=== PATIENT | female | born 1955 | race Caucasian/White ===

== ENCOUNTER → 2017-09-14 09:20 | Outpatient (CLI) | payer OTHER, SELFPAY ==
--- NOTE | 2017-09-14 | DI.MG.S_ITS ---
BILATERAL DIGITAL SCREENING MAMMOGRAM 3D/2D WITH CAD: 09/14/2017 CLINICAL: Routine screening. Family history of breast cancer. Comparison is made to exams dated: 09/11/2016 mammogram, 08/30/2015 mammogram, and 08/26/2014 mammogram - [facility]. The tissue of both breasts is heterogeneously dense. This may lower the sensitivity of mammography. Current study was also evaluated with a Computer Aided Detection (CAD) system. No significant masses, calcifications, or other findings are seen in either breast. There has been no significant interval change. IMPRESSION: NEGATIVE There is no mammographic evidence of malignancy. A 1 year screening mammogram is recommended. This exam was interpreted at Station ID: [id number]. NOTE: For mammograms, a report in lay terms will be sent to the patient. Approximately 15% of breast malignancies will not be visualized mammographically. In the management of a palpable breast mass, a negative mammogram must not discourage biopsy of a clinically suspicious lesion. Electronically Signed By: Kirit rowley/blu:09/14/2017 16:00:27 letter sent: Normal Exam ACR BI-RADS Category 1: Negative [id number]
== END ==
PROVIDERS: Family Provider Family Medicine; PCP Family Medicine; Visit Provider Family Medicine
DX: Z12.31 Encounter for screening mammogram for malignant neoplasm of breast (principal); Z80.3 Family history of malignant neoplasm of breast
CPT/HCPCS: 77063; 77067

== ENCOUNTER → 2017-11-29 11:39 | Outpatient (CLI) | payer OTHER, SELFPAY ==
[2017-11-29 12:15] LABS: Appearance Urine UA SL CLOUDY; Bilirubin Urine UA NEGATIVE (NEGATIVE); Color Urine UA YELLOW; Glucose Urine UA NEGATIVE (Normal); Ketones Urine UA TRACE (NEGATIVE); Leukocyte Esterase Urine UA 2+ (NEGATIVE); Nitrite Urine UA Negative (Negative); Occult Blood Urine UA 1+ (Negative); Protein Urine UA TRACE (Negative); Urobilinogen Urine UA 0.2 E.U./dL (0.2); pH Urine UA 5.5 (4.5-8.0)
[2017-11-29 12:23] LABS: Bacteria Urine Occasional (0-1); RBC Urine 0-1/HPF (0-5/HPF); Squamous Epithelial Cell Urine 0-1 /HPF; WBC Urine >100/HPF (0-5/HPF)
[2017-11-29 12:24] LABS: Culture Indicated Urine Specimen Cultured
== END ==
PROVIDERS: Family Provider Family Medicine; PCP Family Medicine; Visit Provider Family Medicine
DX: R30.0 Dysuria (principal)
CPT/HCPCS: 81003; 81015; 87086

== ENCOUNTER 2018-02-01 23:24 | Emergency (ER) | payer OTHER, SELFPAY ==
[2018-02-01 23:27] VITALS: BP 160/82; PULSE 77; RESP 18; TEMP 36.6; O2SAT 99; BMI 24.0
--- NOTE | 2018-02-01 23:59 | ED.WOUNDLAC ---
HPI - Wound/Laceration General Chief Complaint: Wound/Laceration Stated Complaint: fall at home, hit foreheadhead, cuts Time Seen by Provider: 02/01/18 23:55 Source: patient Mode of arrival: ambulatory Limitations: no limitations History of Present Illness HPI narrative: Patient is a 62-year-old female who presents after a ground level fall and head injury. She says she tripped trying to avoid TV on the floor. She is currently painting so things are issue. She landed on her forehead she heard a pop did not lose consciousness is not nauseated or vomiting. She has minimal bilateral neck pain though she is able to move her neck fully. She denies any alcohol use. She has no numbness tingling or weakness in her upper extremities. This is not the worse headache her life she has had a migraine in the past which she says was the worst headache. He is not on any anti-platelet or anticoagulation medication. Related Data Home Medications Medication Instructions Recorded Confirmed melatonin 5 mg PO QDAY #0 11/06/16 01/07/18 [tumeric] #0 12/13/16 01/07/18 Previous Rx's Medication Instructions Recorded hyoscyamine sulfate [Levsin/SL] 0.125 mg SUBLINGUAL Q6HP PRN #14 04/25/17 tab estradiol [Estrace] 0 VAGINAL SEE INSTRUCTIONS #1 tube 07/17/17 paroxetine HCl [Paxil] 20 mg PO QDAY #90 tab 07/17/17 polyethylene glycol 3350 [Miralax] 17 gm PO QDAY #30 dose 07/17/17 atomoxetine 18 mg capsule 18 mg PO Q DAY #30 cap 01/07/18 Allergies Allergy/AdvReac Type Severity Reaction Status Date / Time codeine [CODEINE] AdvReac Intermediate NAUSEA Verified 02/01/18 23:30 Review of Systems Review of Systems All systems reviewed & are unremarkable except as noted in HPI and below Constitutional Denies chills, Denies fever(s), Reports headache(s), Denies lethargy and Denies weakness Eyes Denies change in vision, Denies eye discharge, Denies irritation and Denies loss of vision ENT Ears, Nose, Mouth, and Throat: Denies change in voice, Denies vertigo, Denies dizziness, Reports headache(s), Reports neck pain and Denies sore throat Cardiovascular Denies chest pain, Denies irregular heart rhythm, Denies lightheadedness, Denies palpitations and Denies orthopnea Musculoskeletal Reports system reviewed and no additional complaints, except as docu, Denies abnormal gait and Reports neck pain Integumentary/Breasts Reports as per HPI Neurologic Reports as per HPI, Denies abnormal speech, Denies abnormal gait, Denies vertigo, Denies dizziness, Reports headache(s), Denies loss of vision and Denies weakness Endocrine Denies palpitations Hematologic/Lymphatic Denies easy bleeding and Denies easy bruising PFSH Social History marital status: Smoking Status: Never smoker alcohol intake: current (2-3 A WEEK ) substance use type: does not use Exam Initial Vital Signs Initial Vital Signs: Vital Signs Temperature 97.8 F 02/01/18 23:27 Pulse Rate 77 02/01/18 23:27 Respiratory Rate 18 02/01/18 23:27 Blood Pressure 160/82 H 02/01/18 23:27 Pulse Oximetry 99 02/01/18 23:27 GENERAL: Well-appearing, well-nourished and in no acute distress. HEENT: Superficial laceration noted on forehead minimal swelling no crepitations no depressions in skull. NECK: No midline vertebral tenderness no immediate paravertebral tenderness lateral bilateral muscle like tenderness. She is able flex extend rotate fully without difficulty. CARDIOVASCULAR: Regular rate and rhythm without murmurs, rubs or gallops. RESPIRATORY: Breath sounds equal bilaterally, no wheezes rales or rhonchi. EXTREMITIES: Normal range of motion, no clubbing or edema. Neurovascularly intact NEUROLOGICAL: Alert and oriented x4.Normal gait and speech. Cranial nerves II through XII grossly intact. 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 She has no neurologic deficits or persistent vomiting. Cervical spine is Nontender with good range of motion of her neck. Recommended if there is worsening pain or weakness to return to the ED I discussed all findings with the patient and , Education has been performed regarding treatment plan, diagnosis, warning signs and symptoms and all concerns have been addressed. Verbally agree with and understood all of the above. Discharge Plan Departure Patient Disposition: Home Clinical Impression: Closed head injury, Acute cervical myofascial strain Discharge Date/Time: 02/02/18 00:24 Interventions: ED Discharge Assessment Last Done: 02/02/18 00:24 Instructions: DI for Whiplash, Closed Head Injury Activity Restrictions/Additional Instructions: *You have been diagnosed with closed head injury and cervical strain *What to do: At this time no indication for CT. Expect to be sore tomorrow. Continue icing 20 min at a time *Continue to take medications as directed Tylenol 975-1000 mg every 6 hr if needed pain *Follow up with your primary care provider in 2-3 days *Return to ER if you should have weakness, numbness, tingling, persistent vomiting, worsening headache or any new, worsening or concerning symptoms Prescriptions: No Action melatonin 5 MG tablet 5 mg PO QDAY Qty: 0 RF: 0 [tumeric] Qty: 0 RF: 0 hyoscyamine sulfate [Levsin/SL] 0.125 MG tablet, sublingual 0.125 mg Sublingual Q6HP PRNQty: 14 RF: 0 paroxetine HCl [Paxil] 20 MG tablet 20 mg PO QDAY Qty: 90 RF: 3 polyethylene glycol 3350 [Miralax] 119 GM powder 17 gm PO QDAY Qty: 30 RF: 2 estradiol [Estrace] 0.01 % cream Vaginal SEE INSTRUCTIONS Qty: 1 RF: 11 atomoxetine 18 mg capsule 18 mg PO Q DAY Qty: 30 RF: 0 Referrals: Camacho Richey MD [Primary Care Provider] -
[2018-02-02 00:24] VITALS: BP 158/82; PULSE 71; RESP 18; O2SAT 99
== END 2018-02-02 00:24 | disposition home or self-care (01) ==
PROVIDERS: Emergency Provider Emergency Medicine; Family Provider Family Medicine; PCP Family Medicine
DX: S09.90XA Unspecified injury of head, initial encounter (principal); S16.1XXA Strain of muscle, fascia and tendon at neck level, initial encounter; W18.30XA Fall on same level, unspecified, initial encounter
CPT/HCPCS: 99282; 99283

== ENCOUNTER 2018-08-03 21:53 | Emergency (ER) | payer OTHER, SELFPAY ==
[2018-08-03 21:55] VITALS: BP 130/69; PULSE 103; RESP 16; TEMP 36.3; O2SAT 98; BMI 24.0
--- NOTE | 2018-08-03 22:00 | DI.RAD.S_ITS ---
PROCEDURE: XR SHOULDER LT MIN 2V INDICATIONS: injured playing tug with dog TECHNIQUE: 3 views of the shoulder were acquired. COMPARISON: [facility], , CHEST 2 VIEW, 11/08/2015, 11:27. FINDINGS: Bones: There is a mildly displaced fracture seen involving the greater tubercle of the left humeral head. No additional fractures are detected. No dislocations are seen. The visualized ribs are unremarkable. No suspicious lytic or blastic lesions are seen. There is partial visualization of lumbar fixation hardware. Soft tissues: No suspicious soft tissue calcifications. The visualized lung demonstrates an unremarkable appearance. IMPRESSION: Mildly displaced fracture of the greater tubercle of the left humeral head. Note: No significant discrepancy from the preliminary report. Dictated by: Jhonathan Taylor M.D. on 08/04/2018 at 7:24 Approved by: Jhonathan Taylor M.D. on 08/04/2018 at 7:26
--- NOTE | 2018-08-04 00:09 | ED_ITS ---
HPI - Extremity Injury (Upper) General Chief Complaint: Extremity Injury, Upper Stated Complaint: left arm injury Time Seen by Provider: 08/04/18 00:00 Source: patient Mode of arrival: ambulatory Limitations: no limitations History of Present Illness HPI narrative: Patient is a 62-year-old female here for evaluation of a left shoulder injury. Patient states she was on the ground playing tackle were with her dog when her dog suddenly jerked her arm out to the side. She had sudden pain in her upper arm and has had some difficulty moving it since then. No prior injuries. Has not tried anything for the symptoms prior to arrival. No other injuries reported from the event Related Data Home Medications Medication Instructions Recorded Confirmed melatonin 5 mg PO QDAY #0 11/06/16 02/07/18 [tumeric] #0 12/13/16 02/07/18 Previous Rx's Medication Instructions Recorded hyoscyamine sulfate [Levsin/SL] 0.125 mg SUBLINGUAL Q6HP PRN #14 04/25/17 tab polyethylene glycol 3350 [Miralax] 17 gm PO QDAY #30 dose 07/17/17 cyclobenzaprine 10 mg tablet 10 mg PO TID PRN #20 tab 02/07/18 estradiol [Estrace] 0 VAGINAL SEE INSTRUCTIONS #1 tube 02/20/18 paroxetine 20 mg tablet 20 mg PO QDAY #90 tab 04/10/18 atomoxetine 18 mg capsule 18 mg PO Q DAY #30 cap 05/24/18 Allergies Allergy/AdvReac Type Severity Reaction Status Date / Time codeine [CODEINE] AdvReac Intermediate NAUSEA Verified 02/07/18 09:15 Review of Systems Constitutional Denies fever(s) ENT Ears, Nose, Mouth, and Throat: Denies neck pain Cardiovascular Denies chest pain and Denies dyspnea Respiratory Denies dyspnea Gastrointestinal Gastrointestinal: Denies abdominal pain Musculoskeletal Denies myalgias, Reports arthralgias (Left shoulder), Reports limited range of motion (Left shoulder), Denies neck pain and Denies numbness Integumentary/Breasts Denies rash Neurologic Denies numbness Hematologic/Lymphatic Denies easy bleeding and Denies easy bruising [facility] Medical History ADHD (Chronic ~2006) Ankle pain (Chronic) Back pain (Chronic) Cardiac arrhythmia (Chronic) GERD (gastroesophageal reflux disease) (Chronic ~2007) Scoliosis (Chronic ~1965) Seasonal allergies (Chronic ~2012) Shoulder pain (Chronic ~2013) Skin cancer, basal cell (Chronic ~2013) Vision disorder (Chronic) Chicken pox (Resolved ~1960) Mumps (Resolved) Recurrent sinusitis (Resolved ~2012) Social History marital status: Smoking Status: Never smoker alcohol intake: current substance use type: does not use Exam Initial Vital Signs Initial Vital Signs: Vital Signs Temperature 97.3 F L 08/03/18 21:55 Pulse Rate 103 H 08/03/18 21:55 Respiratory Rate 16 08/03/18 21:55 Blood Pressure 130/69 08/03/18 21:55 Pulse Oximetry 98 08/03/18 21:55 Const General: cooperative, comfortable, well developed, well groomed and No acute distress Orientation: alert, awake and oriented x3 HENMT Head: normal to inspection and normocephalic Resp Effort & Inspection: normal respiratory effort Cardio Rate: tachycardic Pulses: radial pulses present on the left Skin Lesions: no lesions Rashes: no rashes Neuro General: alert, awake and oriented x3 Cognition: normal cognition Sensory Exam: no sensory deficits noted Extrem Other: Left shoulder: Patient with tenderness to palpation on the lateral aspect of the upper shoulder. No clavicle tenderness. No AC joint tenderness. No scapular tenderness. No elbow or wrist tenderness. Psych Appearance: grossly normal and well kempt Procedures Orthopedic Splinting/Casting Injury #1: Side: left Upper Extremity Injury Location: shoulder Upper Extremity Immobilizer: sling/shoulder immobilizer Post splinting neuro exam: intact and no change Post splinting vascular exam: no change Placed by: Nursing Course Orders Ordered: ED Orders 08/03/18 22:00 XR shoulder LT min 2V Stat Discontinued Medications Hydrocodone Bitart/Acetaminophen (Vicodin Prepack) 1 bottle MISC SEEINSTR ONE Stop: 08/04/18 00:16 Last Admin: 08/04/18 00:35 Dose: 1 bottle Vital Signs - 8 hr 08/03/18 21:55 08/04/18 00:38 Temperature 97.3 F L 98.6 F Pulse Rate 103 H 78 Respiratory Rate 16 18 Blood Pressure 130/69 141/81 H Pulse Oximetry 98 99 MDM - Extremity Injury (Upper) Imaging Data Shoulder x-ray: Attestation: I personally reviewed and interpreted this imaging study as follows: My impression: Does appear to be a cortical irregularity of the greater tubercle of the left humerus. MDM Narrative Medical decision making narrative: Patient is neurovascularly intact. My read the x-ray shows what appears to be a cortical irregularity of the greater tubercle. This does correspond to where she is tender. It is nondisplaced. She was placed in a sling and given pain medications. She was instructed to contact her primary care doctor for follow-up. She was also given follow-up with the orthopedic group [facility]. Patient expressed understanding and agreement with plan. Discharge Plan Departure Patient Disposition: Home Clinical Impression: Fracture of proximal end of humerus Qualifiers: Encounter type: initial encounter Fracture type: closed Fracture morphology: unspecified fracture morphology Laterality: left Qualified Code(s): S42.202A - Unspecified fracture of upper end of left humerus, initial encounter for closed fracture Discharge Date/Time: 08/04/18 00:41 Interventions: ED Discharge Assessment Last Done: 08/04/18 00:38 Instructions: How to Use a Sling, DI for Shoulder Fracture Activity Restrictions/Additional Instructions: On Sunday contact Dr. Richey office for follow-up. You can also contact the [facility] group at [phone]. Use the sling for your comfort. Return to the emergency department for any new or worsening symptoms Prescriptions: No Action melatonin 5 MG tablet 5 mg PO QDAY Qty: 0 RF: 0 [tumeric] Qty: 0 RF: 0 hyoscyamine sulfate [Levsin/SL] 0.125 MG tablet, sublingual 0.125 mg Sublingual Q6HP PRNQty: 14 RF: 0 polyethylene glycol 3350 [Miralax] 119 GM powder 17 gm PO QDAY Qty: 30 RF: 2 estradiol [Estrace] 0.01 % (0.1 mg/gram) cream Vaginal SEE INSTRUCTIONS Qty: 1 RF: 11 paroxetine HCl [Paxil] 20 mg tablet 20 mg PO QDAY Qty: 90 RF: 3 atomoxetine 18 mg capsule 18 mg PO Q DAY Qty: 30 RF: 0 cyclobenzaprine 10 mg tablet 10 mg PO TID PRN (Reason: muscle spasm) Qty: 20 RF: 0 Referrals: Camacho Richey MD [Primary Care Provider] -
[2018-08-04] MEDS: HYDROCODONE/ACET 5/325 PREPACK 1 BOTTLE MISC (00:35)
[2018-08-04 00:38] VITALS: BP 141/81; PULSE 78; RESP 18; TEMP 37; O2SAT 99
== END 2018-08-04 00:41 | disposition home or self-care (01) ==
PROVIDERS: Emergency Provider Emergency Medicine; PCP Family Medicine
DX: S42.202A Unspecified fracture of upper end of left humerus, initial encounter for closed fracture (principal)
CPT/HCPCS: 73030; 99282; 99283

== ENCOUNTER → 2018-08-07 10:36 | Outpatient (CLI) | payer OTHER, SELFPAY ==
[2018-08-07 17:33] LABS: Vitamin D 25 Hydroxy (D3) 29.1 ng/mL (30.0-100.0)
== END ==
PROVIDERS: Family Provider Family Medicine; PCP Family Medicine; Visit Provider Physician Assistant
DX: S42.255A Nondisplaced fracture of greater tuberosity of left humerus, initial encounter for closed fracture (principal)
CPT/HCPCS: 36415; 82306

== ENCOUNTER 2018-10-15 11:15 | Outpatient (RCR) | payer OTHER, SELFPAY ==
--- NOTE | 2018-08-09 16:45 | PT.OIE ---
Current Diagnoses Nondisplaced fracture of greater tuberosity of left humerus, initial encounter for closed fracture (08/09/18) Past Medical History (Last Reviewed 08/04/18 @ 05:03 by Cory Roman DO) ADHD (Chronic ~2006) Ankle pain (Chronic) Back pain (Chronic) Cardiac arrhythmia (Chronic) GERD (gastroesophageal reflux disease) (Chronic ~2007) Scoliosis (Chronic ~1965) Seasonal allergies (Chronic ~2012) Shoulder pain (Chronic ~2013) Skin cancer, basal cell (Chronic ~2013) Vision disorder (Chronic) Chicken pox (Resolved ~1960) Mumps (Resolved) Recurrent sinusitis (Resolved ~2012) Past Surgical History (Last Reviewed 01/07/18 @ 10:42 by Felicia Arnold LPN) Anesthesia (Resolved) Fracture (Resolved ~02/2004) History of spinal fusion (~07/1980) Status post hysterectomy (~05/2000) Provider Visit Care Team Role Provider Type Camacho Richey MD Primary Care Provider Physician Specialty: [facility] Address: [address] [place] [address], [id number] Email: [email or web address] Cates PA-C Attending Provider Physician Specialty: Orthopedic Surgery Address: [address] [place] [address], [id number] Fax: Email: Physical Therapy Initial Evaluation PT-OP-A Visit Information Start: 08/11/18 16:04 Freq: Status: Active Protocol: Document 08/09/18 16:45 RCC (Rec: 08/11/18 16:38 RCC [email or web address]) Out-Patient Physical Therapy Visit Information Visit Information Visit Type Initial Evaluation Visit Start Time 16:45 Visit Stop Time 17:25 Total Visit Minutes 40 Visit Number 1 Number of MED AIDE Visits 0 Evaluation Information Evaluation Date 08/09/18 Precautions Precautions see protocol in pt's chart PT-OP-B Current Condition Start: 08/11/18 16:04 Freq: Status: Active Protocol: Document 08/09/18 16:45 RCC (Rec: 08/11/18 16:38 RCC [email or web address]) Current Condition History of Current Condition Onset Date 08/03/18 Current Complaints L shoulder pain, limited ROM and function History of Current Condition Pt is a 62 y/o female presenting to physical therapy s/p closed non-displaced fx of the greater tuberosity of the L humerus on 08/03/18. Pt was playing tug-of-war with her dog when the dog pulled on the rope, and she lost her footing and tripped over a box (pt currently in the process of moving), fell onto the LUE her her L shoulder elevated. She went to the ER, found to have L greater tuberosity fx. She was referred to ortho, where she was given a protocol to follow. She is starting a new job at the end of July, where she normally would be required to lift and carry objects, but may be able to take a different position until she is healed. She is R hand dominant. She reports she is taking calcium and Vitamin D supplements to assist healing, and taking Aleve for pain medication. Her goal is to work and then be able to travel later this year, carrying a backpack as well as kayaking. She reports compliance thus far with protocol and using the sling. Treatment Goals Patient/Caregiver Goals improve ROM and strength, restore function in LUE Prior Functional Status Baseline Function- ADL's Independent Baseline Function- Mobility Independent Baseline Function- Recreation/Hobbies no restrictions; able to kayak , lift objects Current Functional Impairments (Reported) Functional Limitations- ADL's some assistance with sling don /doffing from spouse Functional Limitations- Recreation/ unable to lift objects or Hobbies kayak Personal Factors Other Personal Factors That May Effect depression, neck pain, h/o Therapy/Recovery spinal fusion (lumbar) PT-OP-C Subjective Start: 08/11/18 16:04 Freq: Status: Active Protocol: Document 08/09/18 16:45 RCC (Rec: 08/11/18 16:38 RCC [email or web address]) OP-PT Subjective Patient Comments Patient Reported Progress Same Patient Questionnaires Quick Dash- Upper Extremity Quick Dash UE Score 61.36 OP-PT Pain Assessment Location L shoulder Intensity 6 Scale Used Numeric (1 - 10) PT-OP-H Neuro Start: 08/11/18 16:04 Freq: Status: Active Protocol: Document 08/09/18 16:45 RCC (Rec: 08/11/18 16:38 RCC [email or web address]) Sensation Evaluation Gross Sensation Gross Sensation WNL PT-OP-K Range of Motion Start: 08/11/18 16:04 Freq: Status: Active Protocol: Document 08/09/18 16:45 RCC (Rec: 08/11/18 16:38 RCC [email or web address]) Shoulder Goniometric Range of Motion Shoulder Measured in Degrees Left Passive Testing Position Supine Flexion 85 Abduction 70 External Rotation at 0 degrees Abduction 18 Internal Rotation 50 Right Active Shoulder ROM WFL Yes Elbow/Forearm Range of Motion Elbow/Forearm Measured in Degrees Right Active Elbow/Forearm ROM WFL Yes Left Active Elbow/Forearm ROM WFL Yes PT-OP-M Strength Start: 08/11/18 16:04 Freq: Status: Active Protocol: Document 08/09/18 16:45 RCC (Rec: 08/11/18 16:38 RCC [email or web address]) Shoulder Strength Shoulder Manual Muscle Testing Left Reason Not Measured Orthopedic Precautions Right Flexion 5 Normal Abduction (C5) 5 Normal External Rotation 5 Normal Internal Rotation 5 Normal PT-OP-Q Treatments Start: 08/11/18 16:04 Freq: Status: Active Protocol: Document 08/09/18 16:45 RCC (Rec: 08/11/18 16:38 RCC [email or web address]) Therapeutic Exercises Supine Exercises T bar ER Side left Reps/Minutes x10 Comments 0 deg and 20 deg abduction without pain Sitting Exercises scapular retraction Side bilateral Reps/Minutes x10 Comments pain-free wrist, elbow AROM Side left Reps/Minutes x10 Standing Exercises pendulum Side left Reps/Minutes 5 min Comments CW, CCW; VC for no activation of deltoid mm. PT-OP-T Assessment and Plan Start: 08/11/18 16:04 Freq: Status: Active Protocol: Document 08/09/18 16:45 RCC (Rec: 08/11/18 16:38 RCC [email or web address]) Physical Therapy Assessment Rehab Potential Rehabilitation Potential Good Evaluation Complexity Number of Personal Factors/Comorbidities 1-2 Number of Body Systems Impaired 3 Clinical Presentation at Evaluation Stable Impairments Impairments Functional Activities Pain ROM Strength Goals L shoulder ROM Impairment L shoulder ROM Group Home Goal (LTG) L shoulder AROM: flexion 170 degrees, abduction 170 degrees , ER 75 degrees and IR 70 degrees prior to d/c. 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 LTG Duration 12 weeks Quick DASH Impairment 61.36 disability score on Quick DASH Short Term Goal (STG) 45 or less disability score on the Quick DASH assessment to demonstrate improvements with functional activities STG Duration 6 weeks Group Home Goal (LTG) 25 or less disability score on the Quick DASH assessment to demonstrate improvements with functional activities LTG Duration 12 weeks Assessment Summary Assessment Pt presents with fair passive range of motion of the L shoulder, given that she has been immobilized since her fall on 08/03/18. Pt tolerated passive ROM well, and was performing most of her HEP, although she required education on how to properly perform pendulum exercises. Pt given handout of HEP, and expect her to progress well within protocol. Pt starts a new job at the end of July, and can only attend physical therapy 1x/week after the initial 2-3 weeks of treatment . Plan to progress PROM as tolerated until cleared to progress per protocol. L shoulder strength not tested due to precautions with orthopedic injury. Pt may benefit from aquatic physical therapy as well to allow for gentle progression of ROM and strength, and she appears to be interested in participating in this. Physical Therapy Plan Frequency and Duration Frequency of Treatment 2x/Week Duration of Treatment 12 Plan of Care Start Date 08/09/18 Plan of Care End Date 11/01/18 Therapeutic Interventions Therapeutic Interventions Aquatic Therapy Home Exercise Program Manual Therapy Neuromuscular Re-education Orthotic/Prosthetic Management Patient/Caregiver Education Self-Care/Home Management Soft Tissue Mobilization Taping Therapeutic Activities Therapeutic Exercises Modalities Cold Pack/Ice Massage Electric Stimulation Hot Packs Ultrasound Next Visit Focus/Plan Next Note Type Treatment Note Next Visit Plan PROM within a pain-free range L shoulder; review HEP No AAROM, ivon's or isometrics until week 3 August
--- NOTE | 2018-08-09 16:45 | PT.OPPOC ---
Current Diagnoses Nondisplaced fracture of greater tuberosity of left humerus, initial encounter for closed fracture (08/09/18) Provider Visit Care Team Role Provider Type Camacho Richey MD Primary Care Provider Physician Specialty: Family Practice Address: [address] [place] [address], [id number] Email: [email or web address] Tanesha Cates PA-C Attending Provider Physician Specialty: Orthopedic Surgery Address: [address] [place] [address], [phone] Fax: Email: Plan Of Care PT-OP-T Assessment and Plan Start: 08/11/18 16:04 Freq: Status: Active Protocol: Document 08/09/18 16:45 RCC (Rec: 08/11/18 16:38 RCC [email or web address]) Physical Therapy Assessment Rehab Potential Rehabilitation Potential Good Evaluation Complexity Number of Personal Factors/Comorbidities 1-2 Number of Body Systems Impaired 3 Clinical Presentation at Evaluation Stable Impairments Impairments Functional Activities Pain ROM Strength Goals L shoulder ROM Impairment L shoulder ROM Equine Vet Goal (LTG) L shoulder AROM: flexion 170 degrees, abduction 170 degrees , ER 75 degrees and IR 70 degrees prior to d/c. LTG Duration 12 weeks L shoulder strength Impairment L shoulder weakness Snf Goal (LTG) L shoulder strength to 4/5 or greater with shoulder flexion, abduction, ER, IR prior to d/ c LTG Duration 12 weeks pain Impairment L shoulder pain 6/10 Short Term Goal (STG) 4/10 or less with daily activities STG Duration 6 weeks Equine Vet Goal (LTG) 1/10 or less with lifting objects at work and carrying a backpack for traveling. LTG Duration 12 weeks Quick DASH Impairment 61.36 disability score on Quick DASH Short Term Goal (STG) 45 or less disability score on the Quick DASH assessment to demonstrate improvements with functional activities STG Duration 6 weeks Equine Vet Goal (LTG) 25 or less disability score on the Quick DASH assessment to demonstrate improvements with functional activities LTG Duration 12 weeks Assessment Summary Assessment Pt presents with fair passive range of motion of the L shoulder, given that she has been immobilized since her fall on 08/03/18. Pt tolerated passive ROM well, and was performing most of her HEP, although she required education on how to properly perform pendulum exercises. Pt given handout of HEP, and expect her to progress well within protocol. Pt starts a new job at the end of July, and can only attend physical therapy 1x/week after the initial 2-3 weeks of treatment . Plan to progress PROM as tolerated until cleared to progress per protocol. L shoulder strength not tested due to precautions with orthopedic injury. Pt may benefit from aquatic physical therapy as well to allow for gentle progression of ROM and strength, and she appears to be interested in participating in this. Physical Therapy Plan Frequency and Duration Frequency of Treatment 2x/Week Duration of Treatment 12 Plan of Care Start Date 08/09/18 Plan of Care End Date 11/01/18 Therapeutic Interventions Therapeutic Interventions Aquatic Therapy Home Exercise Program Manual Therapy Neuromuscular Re-education Orthotic/Prosthetic Management Patient/Caregiver Education Self-Care/Home Management Soft Tissue Mobilization Taping Therapeutic Activities Therapeutic Exercises Modalities Cold Pack/Ice Massage Electric Stimulation Hot Packs Ultrasound Next Visit Focus/Plan Next Note Type Treatment Note Next Visit Plan PROM within a pain-free range L shoulder; review HEP No AAROM, ivon's or isometrics until week 3 August Plan of Care Dates Plan of Care Start Date 08/09/18 Plan of Care End Date 11/01/18 Please Sign and Return: I have reviewed this Plan of Care and certify that the skilled therapy services above are required to meet the patient?s needs. Physician Signature Date Printed Name and Credentials Clinical Instructor Signature Printed Name and Credentials
--- NOTE | 2018-08-16 09:50 | PT.OTN ---
Current Diagnoses Nondisplaced fracture of greater tuberosity of left humerus, initial encounter for closed fracture (08/16/18) Physical Therapy Treatment Note PT-OP-A Visit Information Start: 08/11/18 16:04 Freq: Status: Active Protocol: Document 08/16/18 09:00 DCW (Rec: 08/16/18 09:49 DCW [id number]) Out-Patient Physical Therapy Visit Information Visit Information Visit Type Treatment Note Visit Start Time 09:00 Visit Stop Time 09:45 Total Visit Minutes 45 Visit Number 2 Number of DYEING MACHINE TENDER Visits 0 Evaluation Information Evaluation Date 08/09/18 Precautions Precautions see protocol in pt's chart PT-OP-B Current Condition Start: 08/11/18 16:04 Freq: Status: Active Protocol: Document 08/09/18 16:45 RCC (Rec: 08/11/18 16:38 RCC [email or web address]) Current Condition History of Current Condition Onset Date 08/03/18 Current Complaints L shoulder pain, limited ROM and function History of Current Condition Pt is a 62 y/o female presenting to physical therapy s/p closed non-displaced fx of the greater tuberosity of the L humerus on 08/03/18. Pt was playing tug-of-war with her dog when the dog pulled on the rope, and she lost her footing and tripped over a box (pt currently in the process of moving), fell onto the LUE her her L shoulder elevated. She went to the ER, found to have L greater tuberosity fx. She was referred to ortho, where she was given a protocol to follow. She is starting a new job at the end of July, where she normally would be required to lift and carry objects, but may be able to take a different position until she is healed. She is R hand dominant. She reports she is taking calcium and Vitamin D supplements to assist healing, and taking Aleve for pain medication. Her goal is to work and then be able to travel later this year, carrying a backpack as well as kayaking. She reports compliance thus far with protocol and using the sling. Treatment Goals Patient/Caregiver Goals improve ROM and strength, restore function in LUE Prior Functional Status Baseline Function- ADL's Independent Baseline Function- Mobility Independent Baseline Function- Recreation/Hobbies no restrictions; able to kayak , lift objects Current Functional Impairments (Reported) Functional Limitations- ADL's some assistance with sling don /doffing from spouse Functional Limitations- Recreation/ unable to lift objects or Hobbies karley Personal Factors Other Personal Factors That May Effect depression, neck pain, h/o Therapy/Recovery spinal fusion (lumbar) PT-OP-C Subjective Start: 08/11/18 16:04 Freq: Status: Active Protocol: Document 08/16/18 09:00 DCW (Rec: 08/16/18 09:49 DCW [id number]) OP-PT Subjective Patient Comments Patient Comments Pt reports that everything has been going pretty well, and she has been compliant with her HEP PT-OP-H Neuro Start: 08/11/18 16:04 Freq: Status: Active Protocol: Document 08/09/18 16:45 RCC (Rec: 08/11/18 16:38 RCC [email or web address]) Sensation Evaluation Gross Sensation Gross Sensation WNL PT-OP-K Range of Motion Start: 08/11/18 16:04 Freq: Status: Active Protocol: Document 08/09/18 16:45 RCC (Rec: 08/11/18 16:38 RCC [email or web address]) Shoulder Goniometric Range of Motion Shoulder Measured in Degrees Left Passive Testing Position Supine Flexion 85 Abduction 70 External Rotation at 0 degrees Abduction 18 Internal Rotation 50 Right Active Shoulder ROM WFL Yes Elbow/Forearm Range of Motion Elbow/Forearm Measured in Degrees Right Active Elbow/Forearm ROM WFL Yes Left Active Elbow/Forearm ROM WFL Yes PT-OP-M Strength Start: 08/11/18 16:04 Freq: Status: Active Protocol: Document 08/09/18 16:45 RCC (Rec: 08/11/18 16:38 RCC [email or web address]) Shoulder Strength Shoulder Manual Muscle Testing Left Reason Not Measured Orthopedic Precautions Right Flexion 5 Normal Abduction (C5) 5 Normal External Rotation 5 Normal Internal Rotation 5 Normal PT-OP-Q Treatments Start: 08/11/18 16:04 Freq: Status: Active Protocol: Document 08/16/18 09:00 DCW (Rec: 08/16/18 09:49 DCW [id number]) Therapeutic Exercises Supine Exercises T bar ER Side left Reps/Minutes x10 Comments 0 deg and 20 deg abduction without pain Standing Exercises pendulum Standing Exercise Name Pendulums Side left Comments VCs/Edu to limit active motion Manual Therapy Treatment Soft Tissue Mobilization Upper Trap Body Location L UT Mobilization Type Sustained Pressure Intensity/Depth Superficial Body Position Sitting Manual Techniques Circumduction Type L Shoulder PROM Body Position Sitting IR/ER Type L Shoulder PROM Body Position Sitting Abduction Type L Shoulder PROM Body Position Sitting Flexion Type L Shoulder PROM Body Position Sitting PT-OP-T Assessment and Plan Start: 08/11/18 16:04 Freq: Status: Active Protocol: Document 08/16/18 09:00 DCW (Rec: 08/16/18 09:49 DCW [id number]) Physical Therapy Assessment Impairments Impairments Functional Activities Pain ROM Strength Goals L shoulder ROM Impairment L shoulder ROM Podiatrist Orthopedic Goal (LTG) L shoulder AROM: flexion 170 degrees, abduction 170 degrees , ER 75 degrees and IR 70 degrees prior to d/c. LTG Duration 12 weeks L shoulder strength Impairment L shoulder weakness Podiatrist Orthopedic Goal (LTG) L shoulder strength to 4/5 or greater with shoulder flexion, abduction, ER, IR prior to d/ c LTG Duration 12 weeks pain Impairment L shoulder pain 6/10 Short Term Goal (STG) 4/10 or less with daily activities STG Duration 6 weeks Podiatrist Orthopedic Goal (LTG) 1/10 or less with lifting objects at work and carrying a backpack for traveling. LTG Duration 12 weeks Quick DASH Impairment 61.36 disability score on Quick DASH Short Term Goal (STG) 45 or less disability score on the Quick DASH assessment to demonstrate improvements with functional activities STG Duration 6 weeks Podiatrist Orthopedic Goal (LTG) 25 or less disability score on the Quick DASH assessment to demonstrate improvements with functional activities LTG Duration 12 weeks Assessment Summary Assessment Pt tolerated PROM well. During demonstration of her pendulums, pt was performing them with active shoulder motion, however responded fairly well to cueing to switch to passive. Pt unclear at this time if she will be returning to PT at this clinic , or will transfer services to [facility]. This depends on if she is able to participate in her new job, which she begins 08/20/18 Physical Therapy Plan Frequency and Duration Frequency of Treatment 2x/Week Duration of Treatment 12 Plan of Care Start Date 08/09/18 Plan of Care End Date 11/01/18 Therapeutic Interventions Therapeutic Interventions Aquatic Therapy Home Exercise Program Manual Therapy Neuromuscular Re-education Orthotic/Prosthetic Management Patient/Caregiver Education Self-Care/Home Management Soft Tissue Mobilization Taping Therapeutic Activities Therapeutic Exercises Modalities Cold Pack/Ice Massage Electric Stimulation Hot Packs Ultrasound Next Visit Focus/Plan Next Note Type Treatment Note Next Visit Plan PROM within a pain-free range L shoulder; review HEP No AAROM, ivon's or isometrics until week 3 August
--- NOTE | 2018-08-23 15:08 | PT.OTN ---
Current Diagnoses Nondisplaced fracture of greater tuberosity of left humerus, initial encounter for closed fracture (08/23/18) Physical Therapy Treatment Note PT-OP-A Visit Information Start: 08/11/18 16:04 Freq: Status: Active Protocol: Document 08/23/18 15:08 RCC (Rec: 08/23/18 16:14 RCC [email or web address]) Out-Patient Physical Therapy Visit Information Visit Information Visit Type Treatment Note Visit Start Time 15:08 Visit Stop Time 15:58 Total Visit Minutes 50 Visit Number 3 Number of CUTTING INSPECTOR Visits 0 Evaluation Information Evaluation Date 08/09/18 Precautions Precautions see protocol in pt's chart PT-OP-B Current Condition Start: 08/11/18 16:04 Freq: Status: Active Protocol: Document 08/09/18 16:45 RCC (Rec: 08/11/18 16:38 RCC [email or web address]) Current Condition History of Current Condition Onset Date 08/03/18 Current Complaints L shoulder pain, limited ROM and function History of Current Condition Pt is a 62 y/o female presenting to physical therapy s/p closed non-displaced fx of the greater tuberosity of the L humerus on 08/03/18. Pt was playing tug-of-war with her dog when the dog pulled on the rope, and she lost her footing and tripped over a box (pt currently in the process of moving), fell onto the LUE her her L shoulder elevated. She went to the ER, found to have L greater tuberosity fx. She was referred to ortho, where she was given a protocol to follow. She is starting a new job at the end of July, where she normally would be required to lift and carry objects, but may be able to take a different position until she is healed. She is R hand dominant. She reports she is taking calcium and Vitamin D supplements to assist healing, and taking Aleve for pain medication. Her goal is to work and then be able to travel later this year, carrying a backpack as well as kayaking. She reports compliance thus far with protocol and using the sling. Treatment Goals Patient/Caregiver Goals improve ROM and strength, restore function in LUE Prior Functional Status Baseline Function- ADL's Independent Baseline Function- Mobility Independent Baseline Function- Recreation/Hobbies no restrictions; able to kayak , lift objects Current Functional Impairments (Reported) Functional Limitations- ADL's some assistance with sling don /doffing from spouse Functional Limitations- Recreation/ unable to lift objects or Hobbies kayak Personal Factors Other Personal Factors That May Effect depression, neck pain, h/o Therapy/Recovery spinal fusion (lumbar) PT-OP-C Subjective Start: 08/11/18 16:04 Freq: Status: Active Protocol: Document 08/23/18 15:08 RCC (Rec: 08/23/18 16:14 RCC [email or web address]) OP-PT Subjective Patient Comments Patient Comments Pt admits to some soreness from using her L hand for stabilizing objects, but overall is doing well. Her job was able to be delayed for another month. PT-OP-H Neuro Start: 08/11/18 16:04 Freq: Status: Active Protocol: Document 08/09/18 16:45 RCC (Rec: 08/11/18 16:38 RCC [email or web address]) Sensation Evaluation Gross Sensation Gross Sensation WNL PT-OP-K Range of Motion Start: 08/11/18 16:04 Freq: Status: Active Protocol: Document 08/09/18 16:45 RCC (Rec: 08/11/18 16:38 RCC [email or web address]) Shoulder Goniometric Range of Motion Shoulder Measured in Degrees Left Passive Testing Position Supine Flexion 85 Abduction 70 External Rotation at 0 degrees Abduction 18 Internal Rotation 50 Right Active Shoulder ROM WFL Yes Elbow/Forearm Range of Motion Elbow/Forearm Measured in Degrees Right Active Elbow/Forearm ROM WFL Yes Left Active Elbow/Forearm ROM WFL Yes PT-OP-M Strength Start: 08/11/18 16:04 Freq: Status: Active Protocol: Document 08/09/18 16:45 RCC (Rec: 08/11/18 16:38 RCC [email or web address]) Shoulder Strength Shoulder Manual Muscle Testing Left Reason Not Measured Orthopedic Precautions Right Flexion 5 Normal Abduction (C5) 5 Normal External Rotation 5 Normal Internal Rotation 5 Normal PT-OP-Q Treatments Start: 08/11/18 16:04 Freq: Status: Active Protocol: Document 08/23/18 15:08 RCC (Rec: 08/23/18 16:14 RCC [email or web address]) Therapeutic Exercises Supine Exercises AAROM shoulder elevation Side left Reps/Minutes x10 Comments AAROM Sitting Exercises isometrics Sitting Exercise Name IR, ER, abd, extension Side left Reps/Minutes x10 Comments 10 sec hold pulleys Sitting Exercise Name abduction and flexion Side left Reps/Minutes 2 min each scapular retraction Side bilateral Reps/Minutes x10 Comments pain-free wrist, elbow AROM Side left Reps/Minutes x10 Manual Therapy Treatment Manual Techniques IR/ER Type L Shoulder PROM Body Position Sitting Abduction Type L Shoulder PROM Body Position Sitting Flexion Type L Shoulder PROM Body Position Sitting PT-OP-T Assessment and Plan Start: 08/11/18 16:04 Freq: Status: Active Protocol: Document 08/23/18 15:08 [facility] (Rec: 08/23/18 16:14 RCC [email or web address]) Physical Therapy Assessment Assessment Summary Assessment Pt tolerated L shoulder AAROM for elevation, pulleys and isometrics well, and able to perform within a pain-free range. Pt limited in all planes of motion, with flexion and ER most significantly limited passively d/t pain at this time. Physical Therapy Plan Frequency and Duration Frequency of Treatment 2x/Week Duration of Treatment 12 weeks Plan of Care Start Date 08/09/18 Plan of Care End Date 11/01/18 Next Visit Focus/Plan Next Note Type Treatment Note Next Visit Plan assess tolerance to AAROM and new HEP including isometrics and pulleys; review and progress ROM as tolerated.
--- NOTE | 2018-08-26 09:00 | PT.OTN ---
Current Diagnoses Nondisplaced fracture of greater tuberosity of left humerus, initial encounter for closed fracture (08/26/18) Physical Therapy Treatment Note PT-OP-A Visit Information Start: 08/11/18 16:04 Freq: Status: Active Protocol: Document 08/26/18 09:00 DLM (Rec: 08/26/18 17:26 DLM [id number]) Out-Patient Physical Therapy Visit Information Visit Information Visit Type Treatment Note Visit Note 07/05 authorized Visit Start Time 09:00 Visit Stop Time 09:45 Total Visit Minutes 45 Visit Number 4 Number of CREEL HAND Visits 0 Evaluation Information Evaluation Date 08/09/18 Precautions Precautions see protocol in paper chart PT-OP-B Current Condition Start: 08/11/18 16:04 Freq: Status: Active Protocol: Document 08/09/18 16:45 RCC (Rec: 08/11/18 16:38 RCC [email or web address]) Current Condition History of Current Condition Onset Date 08/03/18 Current Complaints L shoulder pain, limited ROM and function History of Current Condition Pt is a 62 y/o female presenting to physical therapy s/p closed non-displaced fx of the greater tuberosity of the L humerus on 08/03/18. Pt was playing tug-of-war with her dog when the dog pulled on the rope, and she lost her footing and tripped over a box (pt currently in the process of moving), fell onto the LUE her her L shoulder elevated. She went to the ER, found to have L greater tuberosity fx. She was referred to ortho, where she was given a protocol to follow. She is starting a new job at the end of July, where she normally would be required to lift and carry objects, but may be able to take a different position until she is healed. She is R hand dominant. She reports she is taking calcium and Vitamin D supplements to assist healing, and taking Aleve for pain medication. Her goal is to work and then be able to travel later this year, carrying a backpack as well as kayaking. She reports compliance thus far with protocol and using the sling. Treatment Goals Patient/Caregiver Goals improve ROM and strength, restore function in LUE Prior Functional Status Baseline Function- ADL's Independent Baseline Function- Mobility Independent Baseline Function- Recreation/Hobbies no restrictions; able to kayak , lift objects Current Functional Impairments (Reported) Functional Limitations- ADL's some assistance with sling don /doffing from spouse Functional Limitations- Recreation/ unable to lift objects or Hobbies kayak Personal Factors Other Personal Factors That May Effect depression, neck pain, h/o Therapy/Recovery spinal fusion (lumbar) PT-OP-C Subjective Start: 08/11/18 16:04 Freq: Status: Active Protocol: Document 08/26/18 09:00 DLM (Rec: 08/26/18 17:26 DLM [id number]) OP-PT Subjective Patient Comments Patient Comments She got pulleys for home and they really help. Her first two weeks at her new job with be all computer training. Patient Reported Progress Improving PT-OP-H Neuro Start: 08/11/18 16:04 Freq: Status: Active Protocol: Document 08/09/18 16:45 RCC (Rec: 08/11/18 16:38 RCC [email or web address]) Sensation Evaluation Gross Sensation Gross Sensation WNL PT-OP-K Range of Motion Start: 08/11/18 16:04 Freq: Status: Active Protocol: Document 08/09/18 16:45 RCC (Rec: 08/11/18 16:38 RCC [email or web address]) Shoulder Goniometric Range of Motion Shoulder Measured in Degrees Left Passive Testing Position Supine Flexion 85 Abduction 70 External Rotation at 0 degrees Abduction 18 Internal Rotation 50 Right Active Shoulder ROM WFL Yes Elbow/Forearm Range of Motion Elbow/Forearm Measured in Degrees Right Active Elbow/Forearm ROM WFL Yes Left Active Elbow/Forearm ROM WFL Yes PT-OP-M Strength Start: 08/11/18 16:04 Freq: Status: Active Protocol: Document 08/09/18 16:45 RCC (Rec: 08/11/18 16:38 RCC [email or web address]) Shoulder Strength Shoulder Manual Muscle Testing Left Reason Not Measured Orthopedic Precautions Right Flexion 5 Normal Abduction (C5) 5 Normal External Rotation 5 Normal Internal Rotation 5 Normal PT-OP-Q Treatments Start: 08/11/18 16:04 Freq: Status: Active Protocol: Document 08/26/18 09:00 DLM (Rec: 08/26/18 17:26 DLM [id number]) Therapeutic Exercises Supine Exercises AAROM shoulder elevation Supine Exercise Name AAROM Side left Equipment Used T-bar Reps/Minutes x10 Comments and therapist assist as needed T bar ER Side left Reps/Minutes x10 Comments 0 deg and 20 deg abduction without pain Sitting Exercises isometrics Sitting Exercise Name IR, ER, abd, extension Side left Equipment Used v.c. to use moderate effort or less per pain Reps/Minutes x10 reps, 10 sec hold Comments performed in supine today pulleys Sitting Exercise Name abduction and flexion Side left Reps/Minutes 2 min each Comments back to pulleys scapular retraction Side bilateral Reps/Minutes x10 Comments pain-free wrist, elbow AROM Side left Reps/Minutes x10 reps each Standing Exercises pendulum Standing Exercise Name Pendulums Side left Comments VCs/Edu to limit active motion PT-OP-T Assessment and Plan Start: 08/11/18 16:04 Freq: Status: Active Protocol: Document 08/26/18 09:00 DLM (Rec: 08/26/18 17:26 DLM [id number]) Physical Therapy Assessment Goals L shoulder ROM Impairment L shoulder ROM Mcfp Goal (LTG) L shoulder AROM: flexion 170 degrees, abduction 170 degrees , ER 75 degrees and IR 70 degrees prior to d/c. LTG Duration 12 weeks L shoulder strength Impairment L shoulder weakness Mcfp Goal (LTG) L shoulder strength to 4/5 or greater with shoulder flexion, abduction, ER, IR prior to d/ c LTG Duration 12 weeks pain Impairment L shoulder pain 6/10 Short Term Goal (STG) 4/10 or less with daily activities STG Duration 6 weeks Household Assistant Goal (LTG) 1/10 or less with lifting objects at work and carrying a backpack for traveling. LTG Duration 12 weeks Quick DASH Impairment 61.36 disability score on Quick DASH Short Term Goal (STG) 45 or less disability score on the Quick DASH assessment to demonstrate improvements with functional activities STG Duration 6 weeks Mcfp Goal (LTG) 25 or less disability score on the Quick DASH assessment to demonstrate improvements with functional activities LTG Duration 12 weeks Progress Towards Goals Progress Towards Goals Progressing Toward Goals Assessment Summary Assessment She tolerated treatment session well without increased pain. She has end range pain with shoulder ER more than other motions. She reports good tolerance of new HEP of pulleys and isometrics. She reports pendulums are hard for her to do at home. Physical Therapy Plan Frequency and Duration Frequency of Treatment 2x/Week Duration of Treatment 12 weeks Plan of Care Start Date 08/09/18 Plan of Care End Date 11/01/18 Therapeutic Interventions Therapeutic Interventions Aquatic Therapy Home Exercise Program Manual Therapy Neuromuscular Re-education Orthotic/Prosthetic Management Patient/Caregiver Education Self-Care/Home Management Soft Tissue Mobilization Taping Therapeutic Activities Therapeutic Exercises Modalities Cold Pack/Ice Massage Electric Stimulation Hot Packs Ultrasound Next Visit Focus/Plan Next Note Type Treatment Note Next Visit Plan continue to advance slowly per protocal, measure ROM
--- NOTE | 2018-08-28 16:03 | PT.OTN ---
Current Diagnoses Nondisplaced fracture of greater tuberosity of left humerus, initial encounter for closed fracture (08/28/18) Physical Therapy Treatment Note PT-OP-A Visit Information Start: 08/11/18 16:04 Freq: Status: Active Protocol: Document 08/28/18 16:03 RCC (Rec: 08/28/18 17:21 RCC [email or web address]) Out-Patient Physical Therapy Visit Information Visit Information Visit Type Treatment Note Visit Note 08/04 authorized Visit Start Time 16:03 Visit Stop Time 16:45 Total Visit Minutes 42 Visit Number 5 Number of ROUND CUTTER OPERATOR Visits 0 Evaluation Information Evaluation Date 08/09/18 Precautions Precautions see protocol in paper chart PT-OP-B Current Condition Start: 08/11/18 16:04 Freq: Status: Active Protocol: Document 08/09/18 16:45 RCC (Rec: 08/11/18 16:38 RCC [email or web address]) Current Condition History of Current Condition Onset Date 08/03/18 Current Complaints L shoulder pain, limited ROM and function History of Current Condition Pt is a 62 y/o female presenting to physical therapy s/p closed non-displaced fx of the greater tuberosity of the L humerus on 08/03/18. Pt was playing tug-of-war with her dog when the dog pulled on the rope, and she lost her footing and tripped over a box (pt currently in the process of moving), fell onto the LUE her her L shoulder elevated. She went to the ER, found to have L greater tuberosity fx. She was referred to ortho, where she was given a protocol to follow. She is starting a new job at the end of July, where she normally would be required to lift and carry objects, but may be able to take a different position until she is healed. She is R hand dominant. She reports she is taking calcium and Vitamin D supplements to assist healing, and taking Aleve for pain medication. Her goal is to work and then be able to travel later this year, carrying a backpack as well as kayaking. She reports compliance thus far with protocol and using the sling. Treatment Goals Patient/Caregiver Goals improve ROM and strength, restore function in LUE Prior Functional Status Baseline Function- ADL's Independent Baseline Function- Mobility Independent Baseline Function- Recreation/Hobbies no restrictions; able to kayak , lift objects Current Functional Impairments (Reported) Functional Limitations- ADL's some assistance with sling don /doffing from spouse Functional Limitations- Recreation/ unable to lift objects or Hobbies kayak Personal Factors Other Personal Factors That May Effect depression, neck pain, h/o Therapy/Recovery spinal fusion (lumbar) PT-OP-C Subjective Start: 08/11/18 16:04 Freq: Status: Active Protocol: Document 08/28/18 16:03 RCC (Rec: 08/28/18 17:21 RCC [email or web address]) OP-PT Subjective Patient Comments Patient Comments Pt states that her shoulder does feel like it improves a little bit each day. PT-OP-H Neuro Start: 08/11/18 16:04 Freq: Status: Active Protocol: Document 08/09/18 16:45 RCC (Rec: 08/11/18 16:38 RCC [email or web address]) Sensation Evaluation Gross Sensation Gross Sensation WNL PT-OP-K Range of Motion Start: 08/11/18 16:04 Freq: Status: Active Protocol: Document 08/28/18 16:03 RCC (Rec: 08/28/18 17:22 RCC [email or web address]) Shoulder Goniometric Range of Motion Shoulder Measured in Degrees Left Passive Testing Position Supine Flexion 105 Abduction 101 External Rotation at 0 degrees Abduction 22 Internal Rotation 50 PT-OP-M Strength Start: 08/11/18 16:04 Freq: Status: Active Protocol: Document 08/09/18 16:45 RCC (Rec: 08/11/18 16:38 RCC [email or web address]) Shoulder Strength Shoulder Manual Muscle Testing Left Reason Not Measured Orthopedic Precautions Right Flexion 5 Normal Abduction (C5) 5 Normal External Rotation 5 Normal Internal Rotation 5 Normal PT-OP-Q Treatments Start: 08/11/18 16:04 Freq: Status: Active Protocol: Document 08/28/18 16:03 RCC (Rec: 08/28/18 17:21 RCC [email or web address]) Therapeutic Exercises Supine Exercises AAROM shoulder elevation Supine Exercise Name AAROM Side left Equipment Used T-bar Reps/Minutes x10 Comments and therapist assist as needed T bar ER Side left Reps/Minutes x10 Comments 0 deg and 20 deg abduction without pain Sitting Exercises isometrics Sitting Exercise Name IR, ER, abd, extension Side left Equipment Used v.c. to use moderate effort or less per pain Reps/Minutes x10 reps, 10 sec hold scapular retraction Side bilateral Reps/Minutes x10 Comments pain-free Manual Therapy Treatment Manual Techniques Horizontal Add/abduction Type L Shoulder PROM Body Position Sitting IR/ER Type L Shoulder PROM Body Position Supine Abduction Type L Shoulder PROM Body Position Supine Flexion Type L Shoulder PROM Body Position Supine PT-OP-T Assessment and Plan Start: 08/11/18 16:04 Freq: Status: Active Protocol: Document 08/28/18 16:03 RCC (Rec: 08/28/18 17:21 RCC [email or web address]) Physical Therapy Assessment Assessment Summary Assessment Pt's PROM improved since initial evaluation, but still well below a functional level. Pt appears to have good pain control. ER most restricted, followed by abduction and flexion. Physical Therapy Plan Frequency and Duration Frequency of Treatment 2x/Week Duration of Treatment 12 weeks Plan of Care Start Date 08/09/18 Plan of Care End Date 11/01/18 Therapeutic Interventions Therapeutic Interventions Aquatic Therapy Home Exercise Program Manual Therapy Neuromuscular Re-education Orthotic/Prosthetic Management Patient/Caregiver Education Self-Care/Home Management Soft Tissue Mobilization Taping Therapeutic Activities Therapeutic Exercises Modalities Cold Pack/Ice Massage Electric Stimulation Hot Packs Ultrasound Next Visit Focus/Plan Next Note Type Treatment Note Next Visit Plan continue to advance per protocol
--- NOTE | 2018-09-03 14:55 | PT.OTN ---
Current Diagnoses Nondisplaced fracture of greater tuberosity of left humerus, initial encounter for closed fracture (09/03/18) Physical Therapy Treatment Note PT-OP-A Visit Information Start: 08/11/18 16:04 Freq: Status: Active Protocol: Document 09/03/18 14:47 SA (Rec: 09/03/18 14:55 SA [email or web address]) Out-Patient Physical Therapy Visit Information Visit Information Visit Type Treatment Note Visit Note 09/04 authorized Visit Start Time 13:00 Visit Stop Time 13:45 Total Visit Minutes 45 Visit Number 6 Number of POT PUSHER Visits 1 PT-OP-B Current Condition Start: 08/11/18 16:04 Freq: Status: Active Protocol: Document 08/09/18 16:45 RCC (Rec: 08/11/18 16:38 RCC [email or web address]) Current Condition History of Current Condition Onset Date 08/03/18 Current Complaints L shoulder pain, limited ROM and function History of Current Condition Pt is a 62 y/o female presenting to physical therapy s/p closed non-displaced fx of the greater tuberosity of the L humerus on 08/03/18. Pt was playing tug-of-war with her dog when the dog pulled on the rope, and she lost her footing and tripped over a box (pt currently in the process of moving), fell onto the LUE her her L shoulder elevated. She went to the ER, found to have L greater tuberosity fx. She was referred to ortho, where she was given a protocol to follow. She is starting a new job at the end of July, where she normally would be required to lift and carry objects, but may be able to take a different position until she is healed. She is R hand dominant. She reports she is taking calcium and Vitamin D supplements to assist healing, and taking Aleve for pain medication. Her goal is to work and then be able to travel later this year, carrying a backpack as well as kayaking. She reports compliance thus far with protocol and using the sling. Treatment Goals Patient/Caregiver Goals improve ROM and strength, restore function in LUE Prior Functional Status Baseline Function- ADL's Independent Baseline Function- Mobility Independent Baseline Function- Recreation/Hobbies no restrictions; able to kayak , lift objects Current Functional Impairments (Reported) Functional Limitations- ADL's some assistance with sling don /doffing from spouse Functional Limitations- Recreation/ unable to lift objects or Hobbies kayak Personal Factors Other Personal Factors That May Effect depression, neck pain, h/o Therapy/Recovery spinal fusion (lumbar) PT-OP-C Subjective Start: 08/11/18 16:04 Freq: Status: Active Protocol: Document 09/03/18 14:47 SA (Rec: 09/03/18 14:55 SA [email or web address]) OP-PT Subjective Patient Comments Patient Comments Pt ready to get rid of sling, has 6 wk. follow up appt with tomorrow, reports very little pain. PT-OP-H Neuro Start: 08/11/18 16:04 Freq: Status: Active Protocol: Document 08/09/18 16:45 RCC (Rec: 08/11/18 16:38 RCC [email or web address]) Sensation Evaluation Gross Sensation Gross Sensation WNL PT-OP-K Range of Motion Start: 08/11/18 16:04 Freq: Status: Active Protocol: Document 08/28/18 16:03 RCC (Rec: 08/28/18 17:22 RCC [email or web address]) Shoulder Goniometric Range of Motion Shoulder Measured in Degrees Left Passive Testing Position Supine Flexion 105 Abduction 101 External Rotation at 0 degrees Abduction 22 Internal Rotation 50 PT-OP-M Strength Start: 08/11/18 16:04 Freq: Status: Active Protocol: Document 08/09/18 16:45 RCC (Rec: 08/11/18 16:38 RCC [email or web address]) Shoulder Strength Shoulder Manual Muscle Testing Left Reason Not Measured Orthopedic Precautions Right Flexion 5 Normal Abduction (C5) 5 Normal External Rotation 5 Normal Internal Rotation 5 Normal PT-OP-Q Treatments Start: 08/11/18 16:04 Freq: Status: Active Protocol: Document 09/03/18 14:47 SA (Rec: 09/03/18 14:55 SA [email or web address]) Therapeutic Exercises Supine Exercises AAROM shoulder elevation Supine Exercise Name AAROM Side left Equipment Used T-bar Reps/Minutes x10 Comments and therapist assist as needed T bar ER Side left Reps/Minutes x10 Comments 0 deg and 20 deg abduction without pain Sitting Exercises isometrics Sitting Exercise Name IR, ER, abd, extension Side left Equipment Used v.c. to use moderate effort or less per pain Reps/Minutes x10 reps, 10 sec hold pulleys Sitting Exercise Name abduction and flexion Side left Reps/Minutes 2 min each Comments back to pulleys scapular retraction Side bilateral Reps/Minutes x10 Comments pain-free Standing Exercises pendulum Standing Exercise Name Pendulums Side left Comments VCs/Edu to limit active motion Manual Therapy Treatment Manual Techniques Horizontal Add/abduction Type L Shoulder PROM Body Position Sitting IR/ER Type L Shoulder PROM Body Position Supine Abduction Type L Shoulder PROM Body Position Supine Flexion Type L Shoulder PROM Body Position Supine PT-OP-T Assessment and Plan Start: 08/11/18 16:04 Freq: Status: Active Protocol: Document 09/03/18 14:47 SA (Rec: 09/03/18 14:55 SA [email or web address]) Physical Therapy Assessment Assessment Summary Assessment Pt at almost 6 weeks into [facility] protocol visit tomorrow. PROM improving with limited pain. Good tolerance of isometrics and AAROM. Physical Therapy Plan Next Visit Focus/Plan Next Note Type Treatment Note Next Visit Plan continue to advance per protocol
--- NOTE | 2018-09-06 15:25 | PT.OTN ---
Current Diagnoses Nondisplaced fracture of greater tuberosity of left humerus, initial encounter for closed fracture (09/06/18) Physical Therapy Treatment Note PT-OP-A Visit Information Start: 08/11/18 16:04 Freq: Status: Active Protocol: Document 09/06/18 15:18 SA (Rec: 09/06/18 15:25 SA [email or web address]) Out-Patient Physical Therapy Visit Information Visit Information Visit Type Treatment Note Visit Note 10/02 Visit Start Time 13:45 Visit Stop Time 14:30 Total Visit Minutes 45 Visit Number 7 Number of EXPERIMENTAL PLASTICS FABRICATOR Visits 2 PT-OP-B Current Condition Start: 08/11/18 16:04 Freq: Status: Active Protocol: Document 08/09/18 16:45 RCC (Rec: 08/11/18 16:38 RCC [email or web address]) Current Condition History of Current Condition Onset Date 08/03/18 Current Complaints L shoulder pain, limited ROM and function History of Current Condition Pt is a 62 y/o female presenting to physical therapy s/p closed non-displaced fx of the greater tuberosity of the L humerus on 08/03/18. Pt was playing tug-of-war with her dog when the dog pulled on the rope, and she lost her footing and tripped over a box (pt currently in the process of moving), fell onto the LUE her her L shoulder elevated. She went to the ER, found to have L greater tuberosity fx. She was referred to ortho, where she was given a protocol to follow. She is starting a new job at the end of July, where she normally would be required to lift and carry objects, but may be able to take a different position until she is healed. She is R hand dominant. She reports she is taking calcium and Vitamin D supplements to assist healing, and taking Aleve for pain medication. Her goal is to work and then be able to travel later this year, carrying a backpack as well as kayaking. She reports compliance thus far with protocol and using the sling. Treatment Goals Patient/Caregiver Goals improve ROM and strength, restore function in LUE Prior Functional Status Baseline Function- ADL's Independent Baseline Function- Mobility Independent Baseline Function- Recreation/Hobbies no restrictions; able to kayak , lift objects Current Functional Impairments (Reported) Functional Limitations- ADL's some assistance with sling don /doffing from spouse Functional Limitations- Recreation/ unable to lift objects or Hobbies kayak Personal Factors Other Personal Factors That May Effect depression, neck pain, h/o Therapy/Recovery spinal fusion (lumbar) PT-OP-C Subjective Start: 08/11/18 16:04 Freq: Status: Active Protocol: Document 09/06/18 15:18 SA (Rec: 09/06/18 15:25 SA [email or web address]) OP-PT Subjective Patient Comments Patient Comments Pt reports her MD cleared her to transition out of sling at last visit and she is happy about this, presents to clinic without sling and denies soreness. PT-OP-H Neuro Start: 08/11/18 16:04 Freq: Status: Active Protocol: Document 08/09/18 16:45 RCC (Rec: 08/11/18 16:38 RCC [email or web address]) Sensation Evaluation Gross Sensation Gross Sensation WNL PT-OP-K Range of Motion Start: 08/11/18 16:04 Freq: Status: Active Protocol: Document 08/28/18 16:03 RCC (Rec: 08/28/18 17:22 RCC [email or web address]) Shoulder Goniometric Range of Motion Shoulder Left Passive Testing Position Supine Flexion 105 Abduction 101 External Rotation at 0 degrees Abduction 22 Internal Rotation 50 PT-OP-M Strength Start: 08/11/18 16:04 Freq: Status: Active Protocol: Document 08/09/18 16:45 RCC (Rec: 08/11/18 16:38 RCC [email or web address]) Shoulder Strength Shoulder Manual Muscle Testing Left Reason Not Measured Orthopedic Precautions Right Flexion 5 Normal Abduction (C5) 5 Normal External Rotation 5 Normal Internal Rotation 5 Normal PT-OP-Q Treatments Start: 08/11/18 16:04 Freq: Status: Active Protocol: Document 09/06/18 15:18 SA (Rec: 09/06/18 15:25 SA [email or web address]) Therapeutic Exercises Supine Exercises AAROM shoulder elevation Supine Exercise Name AAROM Side left Equipment Used T-bar Reps/Minutes x10 Comments and therapist assist as needed T bar ER Side left Reps/Minutes 15x Comments 0 deg and 20 deg abduction without pain Sitting Exercises isometrics Sitting Exercise Name IR, ER, abd, extension Side left Equipment Used v.c. to use moderate effort or less per pain Reps/Minutes x10 reps, 10 sec hold pulleys Sitting Exercise Name abduction and flexion Side left Reps/Minutes 2 min each Comments back to pulleys scapular retraction Side bilateral Reps/Minutes 20x Comments pain-free Standing Exercises AAshoulder flexion with t-bar Side bilateral Resistance at wall Equipment Used bar Reps/Minutes 10x pendulum Standing Exercise Name Pendulums Side left Comments VCs/Edu to limit active motion Manual Therapy Treatment Manual Techniques Horizontal Add/abduction Type L Shoulder PROM Body Position Sitting IR/ER Type L Shoulder PROM Body Position Supine Abduction Type L Shoulder PROM Flexion Type L Shoulder PROM Body Position Supine PT-OP-T Assessment and Plan Start: 08/11/18 16:04 Freq: Status: Active Protocol: Document 09/06/18 15:18 SA (Rec: 09/06/18 15:25 SA [email or web address]) Physical Therapy Assessment Assessment Summary Assessment Pt tolerating AAROM well with no c/o pain. Educated on gradual transition out of sling and pt understands and has not had increase in pain when she is out of it. Physical Therapy Plan Next Visit Focus/Plan Next Note Type Treatment Note Next Visit Plan continue to advance per protocol
--- NOTE | 2018-09-16 12:06 | PT.OTN ---
Current Diagnoses Nondisplaced fracture of greater tuberosity of left humerus, initial encounter for closed fracture (09/16/18) Physical Therapy Treatment Note PT-OP-A Visit Information Start: 08/11/18 16:04 Freq: Status: Active Protocol: Document 09/16/18 07:48 EA (Rec: 09/16/18 07:52 EA [id number]) Out-Patient Physical Therapy Visit Information Visit Information Visit Type Treatment Note Visit Note 8 Visit Start Time 07:30 Visit Stop Time 08:15 Total Visit Minutes 45 Visit Number 8 Number of WELDING INSPECTOR Visits 2 PT-OP-B Current Condition Start: 08/11/18 16:04 Freq: Status: Active Protocol: Document 08/09/18 16:45 RCC (Rec: 08/11/18 16:38 RCC [email or web address]) Current Condition History of Current Condition Onset Date 08/03/18 Current Complaints L shoulder pain, limited ROM and function History of Current Condition Pt is a 62 y/o female presenting to physical therapy s/p closed non-displaced fx of the greater tuberosity of the L humerus on 08/03/18. Pt was playing tug-of-war with her dog when the dog pulled on the rope, and she lost her footing and tripped over a box (pt currently in the process of moving), fell onto the LUE her her L shoulder elevated. She went to the ER, found to have L greater tuberosity fx. She was referred to ortho, where she was given a protocol to follow. She is starting a new job at the end of July, where she normally would be required to lift and carry objects, but may be able to take a different position until she is healed. She is R hand dominant. She reports she is taking calcium and Vitamin D supplements to assist healing, and taking Aleve for pain medication. Her goal is to work and then be able to travel later this year, carrying a backpack as well as kayaking. She reports compliance thus far with protocol and using the sling. Treatment Goals Patient/Caregiver Goals improve ROM and strength, restore function in LUE Prior Functional Status Baseline Function- ADL's Independent Baseline Function- Mobility Independent Baseline Function- Recreation/Hobbies no restrictions; able to kayak , lift objects Current Functional Impairments (Reported) Functional Limitations- ADL's some assistance with sling don /doffing from spouse Functional Limitations- Recreation/ unable to lift objects or Hobbies kayak Personal Factors Other Personal Factors That May Effect depression, neck pain, h/o Therapy/Recovery spinal fusion (lumbar) PT-OP-C Subjective Start: 08/11/18 16:04 Freq: Status: Active Protocol: Document 09/16/18 07:48 EA (Rec: 09/16/18 07:52 EA [id number]) OP-PT Subjective Patient Comments Patient Comments I just want to get back to work on the first week september states compliant with HEP. PT-OP-H Neuro Start: 08/11/18 16:04 Freq: Status: Active Protocol: Document 08/09/18 16:45 RCC (Rec: 08/11/18 16:38 RCC [email or web address]) Sensation Evaluation Gross Sensation Gross Sensation WNL PT-OP-K Range of Motion Start: 08/11/18 16:04 Freq: Status: Active Protocol: Document 08/28/18 16:03 RCC (Rec: 08/28/18 17:22 RCC [email or web address]) Shoulder Goniometric Range of Motion Shoulder Left Passive Testing Position Supine Flexion 105 Abduction 101 External Rotation at 0 degrees Abduction 22 Internal Rotation 50 PT-OP-M Strength Start: 08/11/18 16:04 Freq: Status: Active Protocol: Document 08/09/18 16:45 RCC (Rec: 08/11/18 16:38 RCC [email or web address]) Shoulder Strength Shoulder Manual Muscle Testing Left Reason Not Measured Orthopedic Precautions Right Flexion 5 Normal Abduction (C5) 5 Normal External Rotation 5 Normal Internal Rotation 5 Normal PT-OP-Q Treatments Start: 08/11/18 16:04 Freq: Status: Active Protocol: Document 09/16/18 08:12 EA (Rec: 09/16/18 08:16 EA [id number]) Therapeutic Exercises Supine Exercises 2 Supine Exercise Name Shoulder flexion Reps/Minutes x 15 reps 1 Supine Exercise Name chest press Equipment Used T-bar Reps/Minutes x 15 reps AAROM shoulder elevation Supine Exercise Name AAROM Side left Equipment Used T-bar Reps/Minutes x10 Comments and therapist assist as needed T bar ER Side left Reps/Minutes 15x Comments 0 deg and 20 deg abduction without pain Sidelying Exercises 3 Sidelying Exercise Name Horiz ABD Reps/Minutes x 12 reps 2 Sidelying Exercise Name ER Reps/Minutes x 12 reps 1 Sidelying Exercise Name AAROM ABD Reps/Minutes x 12 reps Sitting Exercises isometrics Sitting Exercise Name IR, ER, abd, extension Side left Equipment Used v.c. to use moderate effort or less per pain Reps/Minutes x10 reps, 10 sec hold pulleys Sitting Exercise Name abduction and flexion Side left Reps/Minutes 2 min each Comments back to pulleys Standing Exercises AAshoulder flexion with t-bar Standing Exercise Name AROM pain free range Side bilateral Resistance at wall Equipment Used bar Reps/Minutes 10x pendulum Standing Exercise Name Pendulums Side left Comments VCs/Edu to limit active motion Manual Therapy Treatment Manual Techniques IR/ER Type L Shoulder PROM Body Position Supine Abduction Type L Shoulder PROM Flexion Type L Shoulder PROM Body Position Supine PT-OP-R Modalities Start: 08/11/18 16:04 Freq: Status: Active Protocol: Document 09/16/18 08:12 EA (Rec: 09/16/18 08:16 EA [id number]) Hot Pack/Cold Pack Treatment Cold Pack Location left shoulder Patient Position Supine Treatment Duration (minutes) 12 PT-OP-T Assessment and Plan Start: 08/11/18 16:04 Freq: Status: Active Protocol: Document 09/16/18 08:12 EA (Rec: 09/16/18 08:16 EA [id number]) Physical Therapy Assessment Assessment Summary Assessment Pt tolerated treatment very well with minor discomfort past 90 deg. Overall she is progressing accordingly. Physical Therapy Plan Next Visit Focus/Plan Next Note Type Treatment Note Next Visit Plan continue to advance per protocol
--- NOTE | 2018-09-19 16:58 | PT.OTN ---
Current Diagnoses Nondisplaced fracture of greater tuberosity of left humerus, initial encounter for closed fracture (09/19/18) Physical Therapy Treatment Note PT-OP-A Visit Information Start: 08/11/18 16:04 Freq: Status: Active Protocol: Document 09/19/18 16:38 EA (Rec: 09/19/18 16:45 EA [id number]) Out-Patient Physical Therapy Visit Information Visit Information Visit Type Treatment Note Visit Start Time 16:00 Visit Stop Time 16:53 Total Visit Minutes 53 Visit Number 9 PT-OP-B Current Condition Start: 08/11/18 16:04 Freq: Status: Active Protocol: Document 08/09/18 16:45 RCC (Rec: 08/11/18 16:38 RCC [id number]) Current Condition History of Current Condition Onset Date 08/03/18 Current Complaints L shoulder pain, limited ROM and function History of Current Condition Pt is a 62 y/o female presenting to physical therapy s/p closed non-displaced fx of the greater tuberosity of the L humerus on 08/03/18. Pt was playing tug-of-war with her dog when the dog pulled on the rope, and she lost her footing and tripped over a box (pt currently in the process of moving), fell onto the LUE her her L shoulder elevated. She went to the ER, found to have L greater tuberosity fx. She was referred to ortho, where she was given a protocol to follow. She is starting a new job at the end of July, where she normally would be required to lift and carry objects, but may be able to take a different position until she is healed. She is R hand dominant. She reports she is taking calcium and Vitamin D supplements to assist healing, and taking Aleve for pain medication. Her goal is to work and then be able to travel later this year, carrying a backpack as well as kayaking. She reports compliance thus far with protocol and using the sling. Treatment Goals Patient/Caregiver Goals improve ROM and strength, restore function in LUE Prior Functional Status Baseline Function- ADL's Independent Baseline Function- Mobility Independent Baseline Function- Recreation/Hobbies no restrictions; able to kayak , lift objects Current Functional Impairments (Reported) Functional Limitations- ADL's some assistance with sling don /doffing from spouse Functional Limitations- Recreation/ unable to lift objects or Hobbies kayak Personal Factors Other Personal Factors That May Effect depression, neck pain, h/o Therapy/Recovery spinal fusion (lumbar) PT-OP-C Subjective Start: 08/11/18 16:04 Freq: Status: Active Protocol: Document 09/19/18 16:38 EA (Rec: 09/19/18 16:45 EA [id number]) OP-PT Subjective Patient Comments Patient Comments Pt reports aching pain at scapular borders even at rest; denies any unsual activities. PT-OP-H Neuro Start: 08/11/18 16:04 Freq: Status: Active Protocol: Document 08/09/18 16:45 RCC (Rec: 08/11/18 16:38 RCC [email or web address]) Sensation Evaluation Gross Sensation Gross Sensation WNL PT-OP-K Range of Motion Start: 08/11/18 16:04 Freq: Status: Active Protocol: Document 08/28/18 16:03 RCC (Rec: 08/28/18 17:22 RCC [email or web address]) Shoulder Goniometric Range of Motion Shoulder Left Passive Testing Position Supine Flexion 105 Abduction 101 External Rotation at 0 degrees Abduction 22 Internal Rotation 50 PT-OP-M Strength Start: 08/11/18 16:04 Freq: Status: Active Protocol: Document 08/09/18 16:45 RCC (Rec: 08/11/18 16:38 RCC [email or web address]) Shoulder Strength Shoulder Manual Muscle Testing Left Reason Not Measured Orthopedic Precautions Right Flexion 5 Normal Abduction (C5) 5 Normal External Rotation 5 Normal Internal Rotation 5 Normal PT-OP-Q Treatments Start: 08/11/18 16:04 Freq: Status: Active Protocol: Document 09/19/18 16:38 EA (Rec: 09/19/18 16:45 EA [id number]) Therapeutic Exercises Supine Exercises 2 Supine Exercise Name Shoulder flexion Equipment Used T-bar Reps/Minutes x 15 reps x 2 1 Supine Exercise Name chest press Equipment Used T-bar Reps/Minutes x 15 reps x 2 T bar ER Side left Reps/Minutes 15x Comments 0 deg and 20 deg abduction without pain Sidelying Exercises 3 Sidelying Exercise Name Horiz ABD Reps/Minutes x 12 reps 2 Sidelying Exercise Name ER Reps/Minutes x 12 reps Sitting Exercises isometrics Sitting Exercise Name IR, ER, abd, extension Side left Equipment Used v.c. to use moderate effort or less per pain Reps/Minutes x10 reps, 10 sec hold pulleys Sitting Exercise Name abduction and flexion Side left Reps/Minutes 2 min each Comments back to pulleys Standing Exercises AAshoulder flexion with t-bar Standing Exercise Name AROM pain free range Side bilateral Resistance at wall Equipment Used slider Reps/Minutes 10x 3 sets Manual Therapy Treatment Soft Tissue Mobilization Upper Trap Body Location dlets, rotaor cuff Mobilization Type Myofascial Release Rolling Trigger Point Release Intensity/Depth Superficial Body Position Supine Manual Techniques IR/ER Type L Shoulder PROM Body Position Supine PT-OP-R Modalities Start: 08/11/18 16:04 Freq: Status: Active Protocol: Document 09/19/18 16:38 EA (Rec: 09/19/18 16:45 EA [id number]) Electric Stimulation Electric Stimulation Interferential Current (IFC) Body Location Right rotator cuff Duration (Minutes) 15 Intensity 12 Patient Position Supine Combined With Heat/Cold Cold Pack PT-OP-T Assessment and Plan Start: 08/11/18 16:04 Freq: Status: Active Protocol: Document 09/19/18 16:38 EA (Rec: 09/19/18 16:45 EA [id number]) Physical Therapy Assessment Assessment Summary Assessment Pt tolerated treatment well. Tender overscap blades decreased after manual and IFC . Physical Therapy Plan Next Visit Focus/Plan Next Note Type Treatment Note Next Visit Plan continue to advance per protocol
--- NOTE | 2018-10-15 12:00 | PT.OTN ---
Current Diagnoses Nondisplaced fracture of greater tuberosity of left humerus, initial encounter for closed fracture (10/15/18) Physical Therapy Treatment Note PT-OP-A Visit Information Start: 08/11/18 16:04 Freq: Status: Active Protocol: Document 10/15/18 11:15 DCW (Rec: 10/15/18 12:00 DCW [id number]) Out-Patient Physical Therapy Visit Information Visit Information Visit Type Treatment Note Visit Start Time 11:15 Visit Stop Time 12:00 Total Visit Minutes 45 Visit Number 10 PT-OP-B Current Condition Start: 08/11/18 16:04 Freq: Status: Active Protocol: Document 08/09/18 16:45 RCC (Rec: 08/11/18 16:38 RCC [email or web address]) Current Condition History of Current Condition Onset Date 08/03/18 Current Complaints L shoulder pain, limited ROM and function History of Current Condition Pt is a 62 y/o female presenting to physical therapy s/p closed non-displaced fx of the greater tuberosity of the L humerus on 08/03/18. Pt was playing tug-of-war with her dog when the dog pulled on the rope, and she lost her footing and tripped over a box (pt currently in the process of moving), fell onto the LUE her her L shoulder elevated. She went to the ER, found to have L greater tuberosity fx. She was referred to ortho, where she was given a protocol to follow. She is starting a new job at the end of July, where she normally would be required to lift and carry objects, but may be able to take a different position until she is healed. She is R hand dominant. She reports she is taking calcium and Vitamin D supplements to assist healing, and taking Aleve for pain medication. Her goal is to work and then be able to travel later this year, carrying a backpack as well as kayaking. She reports compliance thus far with protocol and using the sling. Treatment Goals Patient/Caregiver Goals improve ROM and strength, restore function in LUE Prior Functional Status Baseline Function- ADL's Independent Baseline Function- Mobility Independent Baseline Function- Recreation/Hobbies no restrictions; able to kayak , lift objects Current Functional Impairments (Reported) Functional Limitations- ADL's some assistance with sling don /doffing from spouse Functional Limitations- Recreation/ unable to lift objects or Hobbies kayak Personal Factors Other Personal Factors That May Effect depression, neck pain, h/o Therapy/Recovery spinal fusion (lumbar) PT-OP-C Subjective Start: 08/11/18 16:04 Freq: Status: Active Protocol: Document 10/15/18 11:15 DCW (Rec: 10/15/18 12:00 DCW [id number]) OP-PT Subjective Patient Comments Patient Comments Pt is hoping that today can be her last day, because her job in [place] interferes with her ability to get to the clinic regularly. Pt was also seen by her Ortho a few weeks ago, and they cleared her to do whatever she wants. PT-OP-H Neuro Start: 08/11/18 16:04 Freq: Status: Active Protocol: Document 08/09/18 16:45 RCC (Rec: 08/11/18 16:38 RCC [email or web address]) Sensation Evaluation Gross Sensation Gross Sensation WNL PT-OP-K Range of Motion Start: 08/11/18 16:04 Freq: Status: Active Protocol: Document 10/15/18 11:15 DCW (Rec: 10/15/18 11:26 DCW [id number]) Shoulder Goniometric Range of Motion Shoulder Left Active Flexion 122 Abduction 124 Left Passive Testing Position Sitting Flexion 132 Abduction 113 External Rotation at 0 degrees Abduction 45 PT-OP-M Strength Start: 08/11/18 16:04 Freq: Status: Active Protocol: Document 10/15/18 11:15 DCW (Rec: 10/15/18 11:26 DCW [id number]) Shoulder Strength Shoulder Manual Muscle Testing Left Flexion 3- Fair- Abduction (C5) 3- Fair- PT-OP-Q Treatments Start: 08/11/18 16:04 Freq: Status: Active Protocol: Document 10/15/18 11:15 DCW (Rec: 10/15/18 12:00 DCW [id number]) Therapeutic Exercises Standing Exercises IR Towel Stretch Standing Exercise Name IR towel stretch Shoulder Adduction Standing Exercise Name Adduction Side left Resistance Lv 2 Equipment Used T-band Shoulder Abduction Standing Exercise Name Abduction Side left Resistance Lv 2 Equipment Used T-band Shoulder Extension Standing Exercise Name Extension Side left Resistance Lv 2 Equipment Used T-band Shoulder Flexion Standing Exercise Name Flexion Side left Resistance Lv 2 Equipment Used T-band Shoulder IR/ER Standing Exercise Name IR/ER Side left Resistance Lv 2 Equipment Used T-band Manual Therapy Treatment Manual Techniques IR/ER Type L Shoulder PROM Body Position Supine Abduction Type L Shoulder PROM Flexion Type L Shoulder PROM Body Position Supine PT-OP-R Modalities Start: 08/11/18 16:04 Freq: Status: Active Protocol: Document 09/19/18 16:38 EA (Rec: 09/19/18 16:45 EA [id number]) Electric Stimulation Electric Stimulation Interferential Current (IFC) Body Location Right rotator cuff Duration (Minutes) 15 Intensity 12 Patient Position Supine Combined With Heat/Cold Cold Pack PT-OP-T Assessment and Plan Start: 08/11/18 16:04 Freq: Status: Active Protocol: Document 10/15/18 11:15 DCW (Rec: 10/15/18 12:00 DCW [id number]) Physical Therapy Assessment Impairments Impairments Functional Activities Pain ROM Strength Goals L shoulder ROM Impairment L shoulder ROM [facility] Goal (LTG) L shoulder AROM: flexion 170 degrees, abduction 170 degrees , ER 75 degrees and IR 70 degrees prior to d/c. LTG Duration 12 weeks L shoulder strength Impairment L shoulder weakness [facility] Goal (LTG) L shoulder strength to 4/5 or greater with shoulder flexion, abduction, ER, IR prior to d/ c LTG Duration 12 weeks pain Impairment L shoulder pain 6/10 Short Term Goal (STG) 4/10 or less with daily activities STG Duration 6 weeks Home Health Physical Therapist Goal (LTG) 1/10 or less with lifting objects at work and carrying a backpack for traveling. LTG Duration 12 weeks Quick DASH Impairment 61.36 disability score on Quick DASH Short Term Goal (STG) 45 or less disability score on the Quick DASH assessment to demonstrate improvements with functional activities STG Duration 6 weeks Home Health Physical Therapist Goal (LTG) 25 or less disability score on the Quick DASH assessment to demonstrate improvements with functional activities LTG Duration 12 weeks Assessment Summary Assessment Since pt had previously only really been focused on ROM and not strengthening, her shoulder still demonstrates noticeable weakness, which also limits her AROM. Pt agreeable to independent HEP for strengthening, with a follow-up visit in a few weeks to adjust HEP as needed. Physical Therapy Plan Frequency and Duration Frequency of Treatment 2x/Week Duration of Treatment 12 weeks Plan of Care Start Date 08/09/18 Plan of Care End Date 11/01/18 Therapeutic Interventions Therapeutic Interventions Aquatic Therapy Home Exercise Program Manual Therapy Neuromuscular Re-education Orthotic/Prosthetic Management Patient/Caregiver Education Self-Care/Home Management Soft Tissue Mobilization Taping Therapeutic Activities Therapeutic Exercises Modalities Cold Pack/Ice Massage Electric Stimulation Hot Packs Ultrasound Next Visit Focus/Plan Next Note Type Treatment Note Next Visit Plan continue to advance per protocol
--- NOTE | 2019-01-02 09:57 | PT.OPDS ---
Current Diagnoses Nondisplaced fracture of greater tuberosity of left humerus, initial encounter for closed fracture (10/15/18) Visit Care Team Role Provider Type Camacho Richey MD Primary Care Provider Physician Specialty: Family Practice Address: [address] [place] [address], [id number] Email: [email or web address] Tanesha Cates PA-C Attending Provider Physician Specialty: Orthopedic Surgery Address: [address] [place] [address], [phone] Fax: Email: [email or web address] Visit Number Visit Number 10 Discharge Summary PT-OP-B Current Condition Start: 08/11/18 16:04 Freq: Status: Active Protocol: Document 08/09/18 16:45 RCC (Rec: 08/11/18 16:38 RCC [email or web address]) Current Condition History of Current Condition Onset Date 08/03/18 Current Complaints L shoulder pain, limited ROM and function History of Current Condition Pt is a 62 y/o female presenting to physical therapy s/p closed non-displaced fx of the greater tuberosity of the L humerus on 08/03/18. Pt was playing tug-of-war with her dog when the dog pulled on the rope, and she lost her footing and tripped over a box (pt currently in the process of moving), fell onto the LUE her her L shoulder elevated. She went to the ER, found to have L greater tuberosity fx. She was referred to ortho, where she was given a protocol to follow. She is starting a new job at the end of July, where she normally would be required to lift and carry objects, but may be able to take a different position until she is healed. She is R hand dominant. She reports she is taking calcium and Vitamin D supplements to assist healing, and taking Aleve for pain medication. Her goal is to work and then be able to travel later this year, carrying a backpack as well as kayaking. She reports compliance thus far with protocol and using the sling. Treatment Goals Patient/Caregiver Goals improve ROM and strength, restore function in LUE Prior Functional Status Baseline Function- ADL's Independent Baseline Function- Mobility Independent Baseline Function- Recreation/Hobbies no restrictions; able to kayak , lift objects Current Functional Impairments (Reported) Functional Limitations- ADL's some assistance with sling don /doffing from spouse Functional Limitations- Recreation/ unable to lift objects or Hobbies kayak Personal Factors Other Personal Factors That May Effect depression, neck pain, h/o Therapy/Recovery spinal fusion (lumbar) PT-OP-C Subjective Start: 08/11/18 16:04 Freq: Status: Active Protocol: Document 10/15/18 11:15 DCW (Rec: 10/15/18 12:00 DCW [id number]) OP-PT Subjective Patient Comments Patient Comments Pt is hoping that today can be her last day, because her job in [place] interferes with her ability to get to the clinic regularly. Pt was also seen by her Ortho a few weeks ago, and they cleared her to do whatever she wants. PT-OP-H Neuro Start: 08/11/18 16:04 Freq: Status: Active Protocol: Document 08/09/18 16:45 RCC (Rec: 08/11/18 16:38 RCC [email or web address]) Sensation Evaluation Gross Sensation Gross Sensation WNL PT-OP-K Range of Motion Start: 08/11/18 16:04 Freq: Status: Active Protocol: Document 10/15/18 11:15 DCW (Rec: 10/15/18 11:26 DCW [id number]) Shoulder Goniometric Range of Motion Shoulder Left Active Flexion 122 Abduction 124 Left Passive Testing Position Sitting Flexion 132 Abduction 113 External Rotation at 0 degrees Abduction 45 PT-OP-M Strength Start: 08/11/18 16:04 Freq: Status: Active Protocol: Document 10/15/18 11:15 DCW (Rec: 10/15/18 11:26 DCW [id number]) Shoulder Strength Shoulder Manual Muscle Testing Left Flexion 3- Fair- Abduction (C5) 3- Fair- PT-OP-T Assessment and Plan Start: 08/11/18 16:04 Freq: Status: Active Protocol: Document 01/02/19 09:54 DCW (Rec: 01/02/19 09:57 DCW [id number]) Physical Therapy Assessment Goals L shoulder ROM Impairment L shoulder ROM [facility] Goal (LTG) L shoulder AROM: flexion 170 degrees, abduction 170 degrees , ER 75 degrees and IR 70 degrees prior to d/c. 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 On the day of her follow-up (10/29/18), pt canceled her appointment, stating she will reschedule. This was more than two months ago, pt has not scheduled and further visits, and she will be discharged at this time. Physical Therapy Plan Frequency and Duration Frequency of Treatment 2x/Week Duration of Treatment 12 weeks Plan of Care Start Date 08/09/18 Plan of Care End Date 11/01/18 Therapeutic Interventions Therapeutic Interventions Aquatic Therapy,Home Exercise Program,Manual Therapy, Neuromuscular Re-education, Orthotic/Prosthetic Management ,Patient/Caregiver Education, Self-Care/Home Management,Soft Tissue Mobilization,Taping, Therapeutic Activities, Therapeutic Exercises Modalities Cold Pack/Ice Massage,Electric Stimulation,Hot Packs, Ultrasound Discharge Physical Therapy Discharge Reasons No Longer Attending PT Next Visit Focus/Plan Next Note Type Discharge Summary
== END 2019-01-23 10:48 | disposition home or self-care (01) ==
LOC: PHYS 11:15
PROVIDERS: PCP Family Medicine; Visit Provider Physician Assistant
DX: S42.255A Nondisplaced fracture of greater tuberosity of left humerus, initial encounter for closed fracture (principal)
CPT/HCPCS: 97014; 97110; 97140; 97161; G0283

== ENCOUNTER → 2018-10-22 16:12 | Outpatient (CLI) | payer OTHER, SELFPAY ==
--- NOTE | 2018-10-22 | DI.MG.S_ITS ---
BILATERAL DIGITAL SCREENING MAMMOGRAM 3D/2D WITH CAD: 10/22/2018 CLINICAL: Routine screening. Family history of breast cancer. Comparison is made to exams dated: 09/14/2017 mammogram, 09/11/2016 mammogram, and 08/30/2015 mammogram - [facility]. The tissue of both breasts is heterogeneously dense. This may lower the sensitivity of mammography. Current study was also evaluated with a Computer Aided Detection (CAD) system. No significant masses, calcifications, or other findings are seen in either breast. There has been no significant interval change. IMPRESSION: NEGATIVE There is no mammographic evidence of malignancy. A 1 year screening mammogram is recommended. This exam was interpreted at Station ID: [id number]. NOTE: For mammograms, a report in lay terms will be sent to the patient. Approximately 15% of breast malignancies will not be visualized mammographically. In the management of a palpable breast mass, a negative mammogram must not discourage biopsy of a clinically suspicious lesion. Electronically Signed By: Nelda solis/blu:10/23/2018 07:40:46 letter sent: Normal Exam ACR BI-RADS Category 1: Negative [id number]
== END ==
PROVIDERS: Family Provider Family Medicine; PCP Family Medicine; Visit Provider Family Medicine
DX: Z12.31 Encounter for screening mammogram for malignant neoplasm of breast (principal); Z80.3 Family history of malignant neoplasm of breast
CPT/HCPCS: 77063; 77067

== ENCOUNTER 2019-01-16 10:51 | Emergency (ER) | payer OTHER, SELFPAY ==
--- NOTE | 2019-01-16 10:58 | DI.RAD.S_ITS ---
PROCEDURE: XR CHEST 1V INDICATIONS: chest pain TECHNIQUE: One view of the chest was acquired. COMPARISON: [facility], , CHEST 2 VIEW, 11/08/2015, 11:27. FINDINGS: Surgical changes and devices: Post-fusion changes in lower thoracic spine and lumbar spine are again seen. Lungs and pleura: Lungs are clear. No pleural effusions or pneumothorax. Mediastinum: Mediastinal contours appear normal. Heart size is normal. Bones and chest wall: No suspicious bony lesions. Overlying soft tissues appear unremarkable. IMPRESSION: No acute cardiopulmonary pathology. Dictated by: Diony Decker M.D. on 01/16/2019 at 12:14 Approved by: Diony Decker M.D. on 01/16/2019 at 12:16
[2019-01-16 11:04] VITALS: BP 148/72; PULSE 65; RESP 14; TEMP 36.4; O2SAT 99
[2019-01-16 11:05] VITALS: BP 148/72; PULSE 65; RESP 14; TEMP 36.4; O2SAT 99; BMI 24.2
--- NOTE | 2019-01-16 11:10 | ED_ITS ---
HPI - Chest Pain General Chief Complaint: Chest Pain Stated Complaint: chest pain/dizzy x1 month Time Seen by Provider: 01/16/19 11:04 Source: patient Mode of arrival: Ambulatory Limitations: no limitations History of Present Illness HPI narrative: 63-year-old female here for evaluation of approximately 1 month of occasional retrosternal chest pressure. She states that it comes and goes. Does not seem to be associated with any activity. Is not worse with palpation or movement or breathing. She also describes some episodes of lightheadedness. She is unable to define whether not the lightheadedness is associated with the chest pressure. She is currently having the symptoms. She states she woke up at 0300 hours this morning with the symptoms and the been constant since then. Has not tried anything for the prior to arrival. She has had what she describes as palpitations in the past. Has not had a Holter monitor to evaluate them. Related Data Home Medications Medication Instructions Recorded Confirmed melatonin 5 mg PO QDAY #0 11/06/16 08/05/18 [tumeric] #0 12/13/16 08/05/18 Previous Rx's Medication Instructions Recorded polyethylene glycol 3350 [Miralax] 17 gm PO QDAY #30 dose 07/17/17 estradiol [Estrace] 0 VAGINAL SEE INSTRUCTIONS #1 tube 02/20/18 hydrocodone 5 mg-acetaminophen 325 1 tab PO Q6H PRN #10 tab 08/05/18 mg tablet paroxetine HCl 20 mg tablet 20 mg PO QDAY #90 tab 08/07/18 Allergies Allergy/AdvReac Type Severity Reaction Status Date / Time codeine [CODEINE] AdvReac Intermediate NAUSEA Verified 01/16/19 11:05 Review of Systems Constitutional Constitutional: Denies fever(s) and Denies headache(s) ENT Ears, Nose, Mouth, and Throat: Denies headache(s) Cardiovascular Cardiovascular: Reports chest pain, Denies chest pain with activity, Reports rapid heart rate, Denies edema, Denies leg edema, Denies radiating jaw, neck or arm pain, Reports palpitations, Denies dyspnea and Denies dyspnea on exertion Respiratory Respiratory: Denies cough, Denies dyspnea and Denies dyspnea on exertion Gastrointestinal Gastrointestinal: Denies abdominal pain, Denies nausea and Denies vomiting Genitourinary Genitourinary: Denies dysuria Musculoskeletal Musculoskeletal: Denies myalgias and Denies arthralgias Integumentary/Breasts Skin/Breast: Denies lesions and Denies rash Neurologic Neurologic: Denies behavioral changes and Denies headache(s) Psychiatric Psychiatric: Denies behavioral changes Endocrine Endocrine: Reports palpitations Hematologic/Lymphatic Hematologic/Lymphatic: Denies easy bleeding and Denies easy bruising Patient History Medical History ADHD (Chronic ~2006) Ankle pain (Chronic) Back pain (Chronic) Cardiac arrhythmia (Chronic) Chicken pox (Resolved ~1960) GERD (gastroesophageal reflux disease) (Chronic ~2007) Mumps (Resolved) Recurrent sinusitis (Resolved ~2012) Scoliosis (Chronic ~1965) Seasonal allergies (Chronic ~2012) Shoulder pain (Chronic ~2013) Skin cancer, basal cell (Chronic ~2013) Vision disorder (Chronic) Surgical History Anesthesia (Resolved) Fracture (Resolved ~02/2004) History of spinal fusion (~07/1980) Status post hysterectomy (~05/2000) Family History Father Heart disease Mother Heart disease Social History marital status: Smoking Status: Never smoker alcohol intake: current substance use type: does not use alcohol intake frequency: 0-2 drinks per day Substance Use Type: does not use and marijuana Exam Initial Vital Signs Initial Vital Signs: Vital Signs Temperature 97.6 F 01/16/19 11:04 Pulse Rate 65 01/16/19 11:04 Respiratory Rate 14 01/16/19 11:04 Blood Pressure 148/72 H 01/16/19 11:04 Pulse Oximetry 99 01/16/19 11:04 Const General: cooperative, comfortable, well developed and well groomed Orientation: alert, awake and oriented x3 HENMT Head: normal to inspection and normocephalic Chest Chest: normal inspection of the chest, No crepitus and No tenderness Resp Effort & Inspection: normal respiratory effort Auscultation: clear to auscultation bilaterally Cardio Rate: regular rate Rhythm: regular rhythm Pulses: radial pulses present GI Inspection: non-distended Palpation: soft, No firm and No tender Skin Lesions: no lesions Rashes: no rashes Neuro General: alert and awake Cognition: normal cognition Speech: speech normal Extrem General: normal to inspection and capillary refill normal Psych Appearance: grossly normal and well kempt Scores HEART Score Heart Score history: Slightly Suspicious Heart Score EKG: Normal Heart Score Age: 45-64 years old Heart Score risk factors: No known risk factors Heart Score troponin: < or = to normal limit Heart Score Total: 1 Course Orders Ordered: ED Orders 01/16/19 10:58 XR chest 1V Stat EKG-12 Lead Stat 01/16/19 11:12 Complete Blood Count AUTO DIFF Stat Comprehensive Metabolic Panel Stat Lipase Stat Partial Thromboplastin Time Stat Prothrombin Time INR Stat Troponin & CK Cardiac Panel Stat Vital Signs Vital signs: Vital Signs - 8 hr 01/16/19 11:04 01/16/19 11:05 01/16/19 11:30 Temperature 97.6 F 97.6 F Pulse Rate 65 65 66 Respiratory Rate 14 14 17 Blood Pressure 148/72 H Blood Pressure [Right Arm] 148/72 H 153/75 H Pulse Oximetry 99 99 100 01/16/19 12:00 Temperature Pulse Rate 64 Respiratory Rate 15 Blood Pressure Blood Pressure [Right Arm] 149/79 H Pulse Oximetry 100 MDM - Chest Pain Lab Data Attestation: I reviewed the patient's lab results. Result diagrams: 01/16/19 11:12 01/16/19 11:12 Labs: Lab Results 01/16/19 01/16/19 01/16/19 Range/Units 11:12 11:12 11:12 WBC 5.1 (4.5-11.0) X10^3/uL RBC 4.75 (4.0-5.2) X10^6/uL Hgb 14.7 (12.0-16.0) g/dL Hct 43.5 (36-46) % MCV 91.5 (80-100) fL MCH 30.9 (26-34) PG MCHC 33.8 (30-36) % RDW 14.0 (11.6-14.8) % Plt Count 211 (150-400) X10^3/uL Neut % (Auto) 58.1 (50-75) % Lymph % (Auto) 34.2 (25-40) % [place] % (Auto) 6.0 (3-14) % Eos % (Auto) 1.0 L (2-4) % Baso % (Auto) 0.7 (0-2) % Neut # (Auto) 2900 (0874-0222) /uL Lymph # (Auto) 1700 (9172-5129) /uL [place] # (Auto) 300 (0-900) /uL Eos # (Auto) 100 (0-450) /uL Baso # (Auto) 0 (0-100) /uL PT 11.3 (10.1-12.7) SECONDS INR 1.0 (0.9-1.3) APTT 36 (26.4-36.2) SECONDS Sodium 138 (137-145) mmol/L Potassium 3.9 (3.4-5.1) mmol/L Chloride 102 (98-107) mmol/L Carbon Dioxide 25 (22-32) mmol/L BUN 14 (7-17) mg/dL Creatinine 0.70 (0.52-1.04) mg/dL Estimated GFR > 60.0 (>60) mL/min BUN/Creatinine Ratio 20.0 (6-22) Glucose 91 (80-110) mg/dL Calcium 10.1 (8.4-10.2) mg/dL Total Bilirubin 2.0 H (0.2-1.3) mg/dL AST 24 (14-36) IU/L ALT 20 (9-52) IU/L Alkaline Phosphatase 66 (38-126) U/L Total Creatine Kinase 56 (30-135) U/L CK-MB (CK-2) TNP CK-MB (CK-2) Rel Index TNP Troponin I < 0.012 (0.01-0.034) ng/mL Total Protein 7.5 (6.3-8.2) g/dL Albumin 4.8 (3.5-5.0) g/dL Globulin 2.7 (1.7-4.1) g/dL Albumin/Globulin Ratio 1.8 (1.0-2.8) Lipase 58 (23-300) U/L Imaging Data Chest x-ray: Radiologist's impression: [address] [address] XRay Report Signed Patient: Esperanza Santos MMR#: [id number] : 6Acct:[id number] Age/Sex: 63 / FDate of Service: 01/16/19 Loc: ED Accession Number: [id number] Procedure: XR chest 1V Ordering Provider: Cory Roman D.O. PROCEDURE: XR CHEST 1V INDICATIONS: chest pain TECHNIQUE: One view of the chest was acquired. COMPARISON: [facility], , CHEST 2 VIEW, 11/08/2015, 11:27. FINDINGS: Surgical changes and devices: Post-fusion changes in lower thoracic spine and lumbar spine are again seen. Lungs and pleura: Lungs are clear. No pleural effusions or pneumothorax. Mediastinum: Mediastinal contours appear normal. Heart size is normal. Bones and chest wall: No suspicious bony lesions. Overlying soft tissues appear unremarkable. IMPRESSION: No acute cardiopulmonary pathology. Dictated by: Diony Decker M.D. on 01/16/2019 at 12:14 Approved by: Diony Decker M.D. on 01/16/2019 at 12:16 ECG Data Attestation: I personally reviewed and interpreted this ECG as follows: Prior ECG tracings: not available for review Interpretation: Sinus rhythm Ventricular rate is 66 Normal axis Normal QRS Normal QTC No ST T wave changes MDM Narrative Medical decision making narrative: Patient has had constant symptoms since 0300 hours this morning. Her EKG is unremarkable. Chest x-ray is unremarkable. Troponin is -6 hours after onset of symptoms. Has a low heart score. Will hold on further workup for now. Symptoms have been occasional for the past month. Discussed with the patient the importance of following up with primary doctor to discuss the indications for Holter monitor to evaluate her palpitations and also a stress test for further evaluation. Patient is given return precautions and follow-up instructions. She expressed understanding and agreement with plan. Discharge Plan Departure Patient Disposition: Home Clinical Impression: Atypical chest pain Instructions: DI for Atypical Chest Pain Activity Restrictions/Additional Instructions: Recommend you contact your primary provider to discuss the indications for a Holter monitor and also stress test. Also recommend that you start taking a anti reflux medication like we discussed. Return to the emergency department for any new or worsening symptoms Prescriptions: No Action hydrocodone-acetaminophen 5-325 mg tablet 1 tab PO Q6H PRN (Reason: pain) Qty: 10 RF: 0 melatonin 5 MG tablet 5 mg PO QDAY Qty: 0 RF: 0 [tumeric] Qty: 0 RF: 0 polyethylene glycol 3350 [Miralax] 119 GM powder 17 gm PO QDAY Qty: 30 RF: 2 estradiol [Estrace] 0.01 % (0.1 mg/gram) cream 0 Vaginal SEE INSTRUCTIONS Qty: 1 RF: 11 paroxetine HCl [Paxil] 20 mg tablet 20 mg PO QDAY Qty: 90 RF: 3 Referrals: Camacho Richey MD [Primary Care Provider] -
[2019-01-16 11:18] LABS: Add Manual Diff / Slide Review NO; Basophils Absolute Auto 0 /uL (0-100); Basophils Percent Auto 0.7 % (0-2); Eosinophils Absolute Auto 100 /uL (0-450); Hematocrit 43.5 % (36-46); Hemoglobin 14.7 g/dL (12.0-16.0); Lymphocytes Absolute Auto 1700 /uL (1100-4500); Lymphocytes Percent Auto 34.2 % (25-40); Mean Corpuscular HGB Conc 33.8 % (30-36); Mean Corpuscular Hemoglobin 30.9 PG (26-34); Mean Corpuscular Volume 91.5 fL (80-100); Monocytes Absolute Auto 300 /uL (0-900); Neutrophils Absolute Auto 2900 /uL (1500-7000); Neutrophils Percent Auto 58.1 % (50-75); Platelet Count 211 X10^3/uL (150-400); Red Blood Cell Count 4.75 X10^6/uL (4.0-5.2); White Blood Cell Count 5.1 X10^3/uL (4.5-11.0)
[2019-01-16 11:27] LABS: Prothrombin Time 11.3 SECONDS (10.1-12.7)
[2019-01-16 11:30] VITALS: BP 153/75; PULSE 66; RESP 17; O2SAT 100
[2019-01-16 11:30] LABS: PTT Partial Thromboplastin Tim 36 SECONDS (26.4-36.2)
[2019-01-16 11:32] LABS: Alanine Aminotransferase 20 IU/L (9-52); Albumin 4.8 g/dL (3.5-5.0); Albumin Globulin Ratio 1.8 (1.0-2.8); Alkaline Phosphatase 66 U/L (38-126); Aspartate Aminotransferase 24 IU/L (14-36); Blood Urea Nitrogen 14 mg/dL (7-17); Calcium 10.1 mg/dL (8.4-10.2); Carbon Dioxide 25 mmol/L (22-32); Chloride 102 mmol/L (98-107); Creatine Kinase 56 U/L (30-135); Estimated Glomerular Filt Rate > 60.0 mL/min (>60); Globulin 2.7 g/dL (1.7-4.1); Glucose 91 mg/dL (80-110); HEMOLYSIS < 15 (0-50); Lipase 58 U/L (23-300); Potassium 3.9 mmol/L (3.4-5.1); Sodium 138 mmol/L (137-145); Total Protein 7.5 g/dL (6.3-8.2)
[2019-01-16 11:43] LABS: Troponin I < 0.012 ng/mL (0.01-0.034)
[2019-01-16 12:00] VITALS: BP 149/79; PULSE 64; RESP 15; O2SAT 100
== END 2019-01-16 12:34 | disposition home or self-care (01) ==
PROVIDERS: Emergency Provider Emergency Medicine; Family Provider Family Medicine; PCP Family Medicine
DX: R07.89 Other chest pain (principal)
CPT/HCPCS: 36415; 71045; 80053; 82550; 83690; 84484; 85025; 85610; 85730; 93005; 99283

== ENCOUNTER → 2019-02-17 14:05 | Outpatient (CLI) | payer OTHER, SELFPAY ==
--- NOTE | 2019-03-07 16:10 | PM.CARDMON.1 ---
Regulator Assembler Report Referral & Results Date Patient Seen: 02/17/19 Requesting provider: Camacho Richey Indication: Arrhythmia Duration of monitoring (days): 7 Diary information: There were 2 patient diary entries and 4 patient triggered events Diary entries were associated with sinus rhythm, PVCs and PACs Triggered events were associated with sinus rhythm, PACs, PVCs, and SVT Data: Minimum heart rate identified was 40 beats per minute at 08:09 on 02/19/2019 Maximum sinus heart rate was 137 beats per minute at 13:36 on 02/22/2019 Maximum overall heart rate was 197 beats per minute at 08:32 on 02/21/2019 during a 4 beat run of SVT Less than 1% of identified beats or either ventricular supraventricular ectopic in origin Patient had 44 beats of supraventricular tachycardia/atrial tachycardia the longest lasting 46.7 seconds at a rate of 139 beats per minute the fastest being listed above Impression: Patient with supraventricular dysrhythmias as above including probable brief runs of SVT No other significant dysrhythmias identified
== END ==
PROVIDERS: Family Provider Family Medicine; PCP Family Medicine; Visit Provider Family Medicine
DX: I49.9 Cardiac arrhythmia, unspecified (principal); R07.89 Other chest pain
CPT/HCPCS: 0296T; 0298T

== ENCOUNTER → 2019-03-04 15:55 | Outpatient (CLI) | payer OTHER, SELFPAY ==
--- NOTE | 2019-03-04 15:56 | DI.ECHO.S_ITS ---
[facility]---------+ [facility] +---------+ : : [address] [place] : : : : [id number] : : : : Phone: [phone]+ Echocardiogram Report + + :Name: KAROLINA LEON Study Date: 03/04/2019 Height: 64 in : :[facility] Weight: 140 lb : : Gender: Female BSA: 1.7 m2 : :: 1955 Age: 63 yrs BP: 132/76 mmHg: :Reason For Study: Palpitations : : Performed By: [facility] Staff : :Referring: CHAVA SHANNON : + + Interpretation Summary Left ventricular systolic function is normal without focal wall motion abnormalities with the ejection fraction visually estimated to be 55-60%. There is mild-moderate concentric left ventricular hypertrophy. Diastolic parameters suggest probable normal left ventricular diastolic function and normal filling pressures. The right ventricle is normal in size and function. Pulmonary artery pressures cannot be estimated because of the lack of a measurable TR jet velocity but the IVC suggests a CVP of around 8 mmHg. The left atrium is mildly dilated. There is no significant valvular heart disease. The aortic root and ascending aorta are mildly enlarged. Procedure: A two-dimensional transthoracic echocardiogram with color flow and Doppler was performed. The study quality was technically adequate. There is no prior echocardiogram noted for this patient. The patient was in sinus bradycardia with heart rates between 55-60 bpm during the exam. Left Ventricle: The left ventricle is normal in size. There is mild-moderate concentric left ventricular hypertrophy. Left ventricular systolic function is normal without focal wall motion abnormalities. The ejection fraction is estimated to be 55-60%. Diastolic parameters suggest probable normal left ventricular diastolic function and normal filling pressures. Right Ventricle: The right ventricle is normal in size and function. Atria: The left atrium is mildly dilated. Right atrial size is normal. The interatrial septum is intact with no evidence for an atrial septal defect. Mitral Valve: The mitral valve is normal in structure and function. There is no mitral regurgitation noted. Aortic Valve: The aortic valve is trileaflet. The aortic valve opens well. No aortic regurgitation is present. Tricuspid Valve: The tricuspid valve is normal in structure and function. There is trace tricuspid regurgitation. Pulmonary artery pressures cannot be estimated because of the lack of a measurable TR jet velocity but the IVC suggests a CVP of around 8 mmHg. Pulmonic Valve: The pulmonic valve is not well visualized. There is trace pulmonic regurgitation. There is no significant valvular heart disease. Great Vessels: The aortic root is mildly dilated. The ascending aorta is mildly enlarged. The pulmonary artery is normal size. The IVC is of normal diameter and collapses less than 50% with a sniff. This suggests a right atrial pressure of 8 mm Hg. Pericardium/ Pleura There is no pericardial effusion. There is no pleural effusion. MMode/2D Measurements & Calculations LVIDd: 4.2 cm LVOT diam: 2.1 cm LVIDs: 2.9 cm Ao root diam: 3.9 cm FS: 31.2 % asc Aorta Diam: 3.7 cm EPSS: 0.65 cm IVSd: 1.3 cm LVPWd: 1.3 cm LV mina. diameter/BSA (cm/m^2): 2.5 LV sys. diameter/BSA (cm/m^2): 1.7 LA A2 area: 21.8 cm2 RA long axis: 4.5 cm LA A4 area: 19.3 cm2 RA area: 12.1 cm2 LA length (vol): 5.9 cm RA vol: 28.0 ml LA vol: 60.2 ml RA : 16.6 ml/m2 LA vol index: 35.8 ml/m2 TAPSE: 1.7 cm Doppler Measurements & Calculations Ao V2 max: 95.8 cm/sec LVOT Max Doug: 84.2 cm/sec Ao V2 mean: 61.0 cm/sec LV V1 max P.8 mmHg Ao max P.7 mmHg LV V1 VTI: 20.7 cm Ao mean P.8 mmHg PATO(I,D): 3.2 cm2 Ao V2 VTI: 22.6 cm PATO(V,D): 3.1 cm2 sev ratio: 0.91 PATO indexed to BSA (cm^2/m^2): 1.9 MV E max doug: 59.7 cm/sec PA V2 max: 44.0 cm/sec MV A max doug: 43.8 cm/sec PA V2 mean: 32.1 cm/sec MV E/A: 1.4 PA mean P.46 mmHg Med Peak E' Doug: 8.9 cm/sec PA Accel Time: 0.14 sec E/E' med: 6.7 Lat Peak E' Doug: 6.5 cm/sec E/E' lat: 9.2 E/e' average: 7.9 MV dec time: 0.20 sec SVSHIVAM): 71.7 ml Reading Physician:MARION
== END ==
PROVIDERS: PCP Family Medicine; Visit Provider Family Medicine
DX: I49.9 Cardiac arrhythmia, unspecified (principal); R07.89 Other chest pain; I77.89 Other specified disorders of arteries and arterioles
CPT/HCPCS: 93306

== ENCOUNTER → 2019-05-05 09:17 | Outpatient (CLI) | payer OTHER, SELFPAY ==
[2019-05-05 10:38] LABS: Add Manual Diff / Slide Review NO; Basophils Absolute Auto 0 /uL (0-100); Basophils Percent Auto 0.4 % (0-2); Eosinophils Absolute Auto 100 /uL (0-450); Eosinophils Percent Auto 1.6 % (2-4); Hematocrit 40.5 % (36-46); Hemoglobin 13.6 g/dL (12.0-16.0); Lymphocytes Absolute Auto 1800 /uL (1100-4500); Lymphocytes Percent Auto 38.5 % (25-40); Mean Corpuscular HGB Conc 33.6 % (30-36); Mean Corpuscular Hemoglobin 30.6 PG (26-34); Monocytes Absolute Auto 300 /uL (0-900); Monocytes Percent Auto 7.3 % (3-14); Neutrophils Absolute Auto 2400 /uL (1500-7000); Neutrophils Percent Auto 52.2 % (50-75); Platelet Count 196 X10^3/uL (150-400); Red Blood Cell Count 4.45 X10^6/uL (4.0-5.2); Red Cell Distribution Width 13.2 % (11.6-14.8); White Blood Cell Count 4.7 X10^3/uL (4.5-11.0)
[2019-05-05 11:18] LABS: Alanine Aminotransferase 20 IU/L (<35); Albumin 4.3 g/dL (3.5-5.0); Albumin Globulin Ratio 1.7 (1.0-2.8); Alkaline Phosphatase 61 U/L (38-126); Aspartate Aminotransferase 23 IU/L (14-36); BUN Creatinine Ratio 22.9 (6-22); Bilirubin Total 1.8 mg/dL (0.2-1.3); Blood Urea Nitrogen 16 mg/dL (7-17); Carbon Dioxide 28 mmol/L (22-32); Chloride 102 mmol/L (98-107); Cholesterol 241 mg/dL (140-199); Estimated Glomerular Filt Rate > 60.0 mL/min (>60); Globulin 2.5 g/dL (1.7-4.1); Glucose 88 mg/dL (80-110); HDL Cholesterol 50 mg/dL (40-60); HEMOLYSIS < 15 (0-50); LDL Cholesterol Calculated 147 mg/dL (<100); Magnesium 1.9 mg/dL (1.6-2.3); Potassium 4.8 mmol/L (3.4-5.1); Sodium 138 mmol/L (137-145); Total Protein 6.8 g/dL (6.3-8.2); Triglycerides 219 mg/dL (35-150)
[2019-05-05 11:47] LABS: TSH w/ Reflex to FT4 2.92 uIU/mL (0.47-4.68)
== END ==
PROVIDERS: PCP Family Medicine; Referring Provider Internal Medicine Cardiovascular Disease; Visit Provider Family Medicine
DX: I47.1 Supraventricular tachycardia (principal); Z91.89 Other specified personal risk factors, not elsewhere classified; R07.89 Other chest pain; Z82.49 Family history of ischemic heart disease and other diseases of the circulatory system; I49.9 Cardiac arrhythmia, unspecified
CPT/HCPCS: 36415; 80053; 80061; 83735; 84443; 85025

== ENCOUNTER 2019-05-23 20:19 | Emergency (ER) | payer OTHER, SELFPAY ==
--- NOTE | 2019-05-23 20:25 | DI.RAD.S_ITS ---
PROCEDURE: XR CHEST 1V INDICATIONS: chest pain TECHNIQUE: One view of the chest was acquired. COMPARISON: [facility], CR, XR CHEST 1V, 01/16/2019, 11:35. FINDINGS: Surgical changes and devices: Thoracolumbar fixation screws are noted. Lungs and pleura: Lungs are clear. No pleural effusions or pneumothorax. Mediastinum: Mediastinal contours appear normal. Heart size is minimally prominent. Bones and chest wall: No suspicious bony lesions. Overlying soft tissues appear unremarkable. IMPRESSION: No acute pulmonary process. Dictated by: Jade Guillen M.D. on 05/23/2019 at 21:28 Approved by: Jade Guillen M.D. on 05/23/2019 at 21:29
--- NOTE | 2019-05-23 20:25 | ED.CHESTPAIN ---
HPI - Chest Pain General Chief Complaint: Chest Pain Stated Complaint: CHEST PRESSURE Time Seen by Provider: 05/23/19 20:25 Source: patient, family () and old records reviewed Mode of arrival: Ambulatory Limitations: no limitations History of Present Illness HPI narrative: This is a 63-year-old female comes emergency department with complaint of 2 days of feeling weak, chest pressure and just feeling a little dizzy. Patient states that Um she is walking around okay. She states the chest pressure is sort of central upper epigastric. It does not radiate anywhere. It has been constant without any decrease or increase. Patient states that she has not felt short of breath. She has not felt like she is going to pass out. She denies any nausea or vomiting. No new GI changes. No urinary issues. No swelling in her lower extremities. She states she always has a runny nose, she has not had any cough or chest congestion. She states she has known SVT she does not always feel that episodes but when she gets dizzy that was may be SVT episodes. Two days ago she took half a metoprolol which she was told to take if she is having them and since then has been feeling not well. She is taking metoprolol once before as a single dose and did not have these symptoms. She has had hysterectomy, denies other surgeries. She had a Holter monitor and is scheduled for stress test on June 12. Tobacco, occasional alcohol and then the last several days. Occasional THC no other illicit. She is accompanied by her . Dr. Ojedage her primary care and Dr. Armando is her vocational training director. Related Data Home Medications Medication Instructions Recorded Confirmed melatonin 5 mg PO QDAY #0 11/06/16 03/17/19 [tumeric] #0 12/13/16 03/17/19 omeprazole 20 mg tablet,delayed 20 mg PO DAILY 01/21/19 03/17/19 release Previous Rx's Medication Instructions Recorded polyethylene glycol 3350 [Miralax] 17 gm PO QDAY #30 dose 07/17/17 estradiol [Estrace] 0 VAGINAL SEE INSTRUCTIONS #1 tube 02/20/18 paroxetine HCl 20 mg tablet 20 mg PO QDAY #90 tab 08/07/18 Allergies Allergy/AdvReac Type Severity Reaction Status Date / Time codeine [CODEINE] AdvReac Intermediate NAUSEA Verified 03/17/19 12:05 Review of Systems Review of Systems ROS Unobtainable: All systems reviewed & are unremarkable except as noted in HPI and below Patient History Medical History ADHD (Chronic ~2006) Ankle pain (Chronic) Atypical chest pain (Inactive) Back pain (Chronic) Cardiac arrhythmia (Chronic) Chicken pox (Resolved ~1960) GERD (gastroesophageal reflux disease) (Chronic ~2007) Mumps (Resolved) Recurrent sinusitis (Resolved ~2012) Scoliosis (Chronic ~1965) Seasonal allergies (Chronic ~2012) Shoulder pain (Chronic ~2013) Skin cancer, basal cell (Chronic ~2013) Vision disorder (Chronic) Surgical History Anesthesia (Resolved) Fracture (Resolved ~02/2004) History of spinal fusion (~07/1980) Status post hysterectomy (~05/2000) Family History Father Heart disease Mother Heart disease Social History marital status: Smoking Status: Never smoker alcohol intake: current substance use type: does not use Smoking Status: Never smoker alcohol intake frequency: 0-2 drinks per day Substance Use Type: does not use and marijuana Exam Narrative Exam Narrative: GENERAL: Alert and oriented x three, well-nourished, well-appearing female in mild distress. HEENT: Head normocephalic, atraumatic, EOMI, pupils reactive, face symmetric, moist mucous membranes NECK: Supple, full range of motion CARDIOVASCULAR: Regular rate and rhythm without murmurs, rubs or gallops. No edema bilateral lower extremities. No JVD. RESPIRATORY: Breath sounds equal bilaterally, no wheezes rales or rhonchi. No tachypnea or accessory muscle use. ABDOMEN: Soft, nontender. Normoactive bowel sounds all 4 quadrants. No guarding or rebound, rigidity, no mass : No CVA tenderness EXTREMITIES: Normal range of motion, no clubbing or edema. Neurovascularly intact NEUROLOGICAL: Cranial nerves II through XII grossly intact. Moving all extremities SKIN: Warm, dry, no petechiae, no rashes or lesions. Initial Vital Signs Initial Vital Signs: Vital Signs Pulse Rate 74 05/23/19 20:45 Respiratory Rate 18 05/23/19 20:45 Blood Pressure 144/73 H 05/23/19 20:45 Pulse Oximetry 99 05/23/19 20:45 Scores HEART Score Heart Score history: Moderately Suspicious Heart Score EKG: Normal Heart Score Age: 45-64 years old Heart Score risk factors: No known risk factors Heart Score troponin: < or = to normal limit Heart Score Total: 2 Course Orders Ordered: ED Orders 05/23/19 20:25 XR chest 1V Stat EKG-12 Lead Stat 05/23/19 20:30 Complete Blood Count AUTO DIFF Stat Comprehensive Metabolic Panel Stat Lipase Stat Partial Thromboplastin Time Stat Prothrombin Time INR Stat Troponin & CK Cardiac Panel Stat Discontinued Medications Pantoprazole Sodium (Protonix) 40 mg IV NOW ONE Stop: 05/23/19 20:39 Last Admin: 05/23/19 21:07 Dose: 40 mg Documented by: KELLY Vital Signs Vital signs: Vital Signs - 8 hr 05/23/19 20:45 05/23/19 22:00 Pulse Rate 74 66 Respiratory Rate 18 16 Blood Pressure [Left Arm] 144/73 H 143/88 H Pulse Oximetry 99 100 MDM - Chest Pain Lab Data Attestation: I reviewed the patient's lab results. Result diagrams: 05/23/19 20:30 05/23/19 20:30 Labs: Lab Results 05/23/19 05/23/19 05/23/19 Range/Units 20:30 20:30 20:30 WBC 6.1 (4.5-11.0) X10^3/uL RBC 4.68 (4.0-5.2) X10^6/uL Hgb 14.6 (12.0-16.0) g/dL Hct 42.6 (36-46) % MCV 91.0 (80-100) fL MCH 31.2 (26-34) PG MCHC 34.3 (30-36) % RDW 13.6 (11.6-14.8) % Plt Count 222 (150-400) X10^3/uL Neut % (Auto) 56.3 (50-75) % Lymph % (Auto) 37.2 (25-40) % Humphreys % (Auto) 4.8 (3-14) % Eos % (Auto) 1.3 L (2-4) % Baso % (Auto) 0.4 (0-2) % Neut # (Auto) 3400 (9508-6386) /uL Lymph # (Auto) 2300 (0995-2375) /uL Humphreys # (Auto) 300 (0-900) /uL Eos # (Auto) 100 (0-450) /uL Baso # (Auto) 0 (0-100) /uL PT 11.9 (10.1-12.7) SECONDS INR 1.0 (0.9-1.3) APTT 36 (26.4-36.2) SECONDS Sodium 139 (137-145) mmol/L Potassium 4.0 (3.4-5.1) mmol/L Chloride 105 (98-107) mmol/L Carbon Dioxide 23 (22-32) mmol/L BUN 17 (7-17) mg/dL Creatinine 0.70 (0.52-1.04) mg/dL Estimated GFR > 60.0 (>60) mL/min BUN/Creatinine Ratio 24.3 H (6-22) Glucose 108 (80-110) mg/dL Calcium 10.3 H (8.4-10.2) mg/dL Total Bilirubin 1.0 (0.2-1.3) mg/dL AST 22 (14-36) IU/L ALT 19 (<35) IU/L Alkaline Phosphatase 70 (38-126) U/L Total Creatine Kinase 32 (30-135) U/L CK-MB (CK-2) TNP CK-MB (CK-2) Rel Index TNP Troponin I < 0.012 (0.01-0.034) ng/mL Total Protein 7.6 (6.3-8.2) g/dL Albumin 4.6 (3.5-5.0) g/dL Globulin 3.0 (1.7-4.1) g/dL Albumin/Globulin Ratio 1.5 (1.0-2.8) Lipase 110 (23-300) U/L ECG Data Attestation: I personally reviewed and interpreted this ECG as follows: Prior ECG tracings: available for review Interpretation: Sinus rhythm rate of 75 [place] 170 QRS 81 and QTC of 401. No ST elevation depression noted. EKG from 01/16/2019 appears similar. MDM Narrative Medical decision making narrative: Patient had a Holter monitor for 7 days on 02/17/2019. Patient had a maximum overall heart rate of 197 beats per 4 beat run of SVT, maximum sinus heart rate was 137 beats at minimum heart rate was 40. Patient had 44 beats of supraventricular tachycardia/atrial tachycardia lasting 46 seconds at 139 beats per minute. ECHO-shows no wall motion or normality. Injection fraction 55-60% with mild to moderate concentric left ventricular hypertrophy. Aortic root and ascending aorta are mildly enlarged. Left atrium is mildly dilated. This is from 03/04/2019. Discussed with patient she has had days of chest pain that has not been worsened or improved, patient did not have any improvement with Protonix but does not have new EKG changes with negative troponin and no other major lab abnormalities to explain her symptoms. Chest x-ray is negative discussed with patient would likely be prudent to talk to their physician about moving up her stress test but her heart score at this time is 2. Patient and feel comfortable and patient will call Sunday am for follow up. Discharge Plan Departure Patient Disposition: Home Clinical Impression: Chest pain Discharge Date/Time: 05/23/19 22:08 Instructions: DI for Chest Pain Activity Restrictions/Additional Instructions: Follow-up with primary care this week for recheck. Discussed with your physician about moving your stress test to a sooner date. Continue home medications as prescribed. Return to the ER for new or worsening symptoms, fevers greater 100.4 F, new chest pain, shortness of breath, lightheadedness or passing out, persistent vomiting, black or bloody stools or other new or concerning symptoms. Prescriptions: No Action omeprazole 20 mg tablet,delayed release (DR/EC) 20 mg PO DAILY RF: 0 melatonin 5 MG tablet 5 mg PO QDAY Qty: 0 RF: 0 [tumeric] Qty: 0 RF: 0 polyethylene glycol 3350 [Miralax] 119 GM powder 17 gm PO QDAY Qty: 30 RF: 2 estradiol [Estrace] 0.01 % (0.1 mg/gram) cream 0 Vaginal SEE INSTRUCTIONS Qty: 1 RF: 11 paroxetine HCl [Paxil] 20 mg tablet 20 mg PO QDAY Qty: 90 RF: 3 Referrals: Camacho Richey MD [Primary Care Provider] -
[2019-05-23 20:38] LABS: Add Manual Diff / Slide Review NO; Basophils Absolute Auto 0 /uL (0-100); Basophils Percent Auto 0.4 % (0-2); Eosinophils Absolute Auto 100 /uL (0-450); Eosinophils Percent Auto 1.3 % (2-4); Hematocrit 42.6 % (36-46); Hemoglobin 14.6 g/dL (12.0-16.0); Lymphocytes Absolute Auto 2300 /uL (1100-4500); Lymphocytes Percent Auto 37.2 % (25-40); Mean Corpuscular HGB Conc 34.3 % (30-36); Mean Corpuscular Hemoglobin 31.2 PG (26-34); Monocytes Absolute Auto 300 /uL (0-900); Monocytes Percent Auto 4.8 % (3-14); Neutrophils Absolute Auto 3400 /uL (1500-7000); Neutrophils Percent Auto 56.3 % (50-75); Platelet Count 222 X10^3/uL (150-400); Red Blood Cell Count 4.68 X10^6/uL (4.0-5.2); Red Cell Distribution Width 13.6 % (11.6-14.8); White Blood Cell Count 6.1 X10^3/uL (4.5-11.0)
[2019-05-23 20:45] VITALS: BP 144/73; PULSE 74; RESP 18; O2SAT 99
[2019-05-23 20:45] LABS: Prothrombin Time 11.9 SECONDS (10.1-12.7)
[2019-05-23 20:48] LABS: PTT Partial Thromboplastin Tim 36 SECONDS (26.4-36.2)
[2019-05-23 20:49] LABS: Alanine Aminotransferase 19 IU/L (<35); Albumin 4.6 g/dL (3.5-5.0); Albumin Globulin Ratio 1.5 (1.0-2.8); Alkaline Phosphatase 70 U/L (38-126); Aspartate Aminotransferase 22 IU/L (14-36); BUN Creatinine Ratio 24.3 (6-22); Blood Urea Nitrogen 17 mg/dL (7-17); Calcium 10.3 mg/dL (8.4-10.2); Carbon Dioxide 23 mmol/L (22-32); Chloride 105 mmol/L (98-107); Creatine Kinase 32 U/L (30-135); Estimated Glomerular Filt Rate > 60.0 mL/min (>60); Glucose 108 mg/dL (80-110); HEMOLYSIS 15 (0-50); Lipase 110 U/L (23-300); Sodium 139 mmol/L (137-145); Total Protein 7.6 g/dL (6.3-8.2)
[2019-05-23 21:01] LABS: Troponin I < 0.012 ng/mL (0.01-0.034)
[2019-05-23] MEDS: PANTOPRAZOLE 40 MG VIAL IV (21:07)
[2019-05-23 22:00] VITALS: BP 143/88; PULSE 66; RESP 16; O2SAT 100
== END 2019-05-23 22:08 | disposition home or self-care (01) ==
PROVIDERS: Emergency Provider Emergency Medicine; PCP Family Medicine
DX: R07.9 Chest pain, unspecified (principal); R00.0 Tachycardia, unspecified
CPT/HCPCS: 36415; 71045; 80053; 82550; 83690; 84484; 85025; 85610; 85730; 93005; 96374; 99284; C9113

== ENCOUNTER → 2019-05-30 10:44 | Outpatient (CLI) | payer OTHER, SELFPAY ==
--- NOTE | 2019-05-30 | DI.NM.S_ITS ---
PROCEDURE: NM JIMMIE PERF SPECT REST & STR Rest and exercise myocardial perfusion SPECT with gated imaging and ejection fraction RADIOPHARMACEUTICAL: 24.7 mCi Tc-99m sestamibi IV at rest and 26.7 mCi Tc-99m sestamibi IV at peak exercise. A two day-protocol was performed. INDICATIONS: Other specified personal risk factors TECHNIQUE: Radiopharmaceutical was injected at peak stress test, and also at rest. SPECT images were obtained. SPECT myocardial perfusion images were displayed in short axis, horizontal long axis, and vertical long axis views. Gated images were reviewed using Xamarin software. COMPARISON: None. CARDIAC STRESS: A standard Maged treadmill exercise tolerance test was performed by the patient under the supervision of an attending staff. The patient exercised for 6 minutes and 31 seconds; functional aerobic impairment (ISSA) is 0%. Hemodynamic data: There is normal blood pressure and heart rate response to exercise stress. Patient achieved 96% of maximum predicted heart rate at peak exercise. Symptoms: Patient denied chest pain during exercise. EKG: No diagnostic EKG changes of ischemia; no ectopy. FINDINGS: Raw data: There is good myocardial labeling by radiotracer. No significant motion artifacts. Bhkb-iw-tmyga ratio is 0.36 (normal is less than 0.38 for sestamibi tracer, and less than 0.50 for thallium tracer). Left ventricle function: Gated images demonstrate normal left ventricle wall thickening. No segmental wall motion abnormality. No transient ischemic dilation; TID is 0.86 (normal less than 1.3). The left ventricle resting end-diastolic volume is 80 mL. Left ventricle stress ejection fraction is 84%; normal values are above 45%. Myocardial perfusion: There is normal distribution of activity in the left and right ventricular myocardium. No fixed or reversible perfusion defects. IMPRESSION: Low risk, normal treadmill nuclear stress test 1) No perfusion evidence of ischemia or infarction. 2) Normal left ventricular size, wall motion, and systolic function (EF post stress 84%). 3) No ECG evidence of ischemia. No ectopy noted. 4) No angina during the study. 5) Average exercise capacity (7.0 METs, ISSA 0%). Target heart rate achieved. Appropriate BP response to exercise. 6) No prior nuclear stress test available for comparison. Dictated by: Yana Beck MD on 06/02/2019 at 12:52 Approved by: Yana Beck MD on 06/02/2019 at 12:55
--- NOTE | 2019-05-30 11:46 | PM.TREADMILL ---
Cardiac Stress Test Report Referral & Results Date Patient Seen: 05/30/19 Time Patient Seen: 11:47 Requesting provider: Javier Pradhan Indication: chest pain Rest ECG: normal sinus rhythm Procedure Note: Standard Maged protocol, 6:31, 6.5 METS Fair exercise capacity, ISSA 0% Normal hemodynamic response to exercise No chest pain or anginal symptoms Resting ECG: sinus rhythm; NO ST changes; No ectopy Impression: Normal exercise test Nuclear images pending Please note: Actual ECG tracings can be found in the PACS system.
== END ==
PROVIDERS: PCP Family Medicine; Referring Provider Physician Assistant; Visit Provider Physician Assistant
DX: R07.9 Chest pain, unspecified (principal); Z91.89 Other specified personal risk factors, not elsewhere classified
CPT/HCPCS: 78452; 93017; A9502

== ENCOUNTER → 2019-10-02 08:53 | Outpatient (CLI) | payer OTHER, SELFPAY ==
[2019-10-02 10:11] LABS: BUN Creatinine Ratio 25.7 (6-22); Blood Urea Nitrogen 18 mg/dL (7-17); Calcium 9.9 mg/dL (8.4-10.2); Carbon Dioxide 29 mmol/L (22-32); Chloride 102 mmol/L (98-107); Cholesterol 154 mg/dL (140-199); Estimated Glomerular Filt Rate > 60.0 mL/min (>60); Glucose 98 mg/dL (80-110); HDL Cholesterol 46 mg/dL (40-60); HEMOLYSIS < 15 (0-50); LDL Cholesterol Calculated 73 mg/dL (<100); Magnesium 1.7 mg/dL (1.6-2.3); Potassium 4.1 mmol/L (3.4-5.1); Sodium 137 mmol/L (137-145); Triglycerides 176 mg/dL (35-150)
[2019-10-02 10:41] LABS: TSH w/ Reflex to FT4 1.67 uIU/mL (0.47-4.68)
== END ==
PROVIDERS: Physician Assistant; PCP Family Medicine; Referring Provider Internal Medicine Cardiovascular Disease; Visit Provider Internal Medicine Cardiovascular Disease
DX: E78.6 Lipoprotein deficiency (principal); I47.1 Supraventricular tachycardia; Z91.89 Other specified personal risk factors, not elsewhere classified; R07.89 Other chest pain; Z82.49 Family history of ischemic heart disease and other diseases of the circulatory system
CPT/HCPCS: 36415; 80048; 80061; 83735; 84443

== ENCOUNTER → 2019-10-28 17:09 | Outpatient (CLI) | payer OTHER, SELFPAY ==
--- NOTE | 2019-10-28 17:10 | DI.MG.S_ITS ---
BILATERAL DIGITAL SCREENING MAMMOGRAM 3D/2D WITH CAD: 10/28/2019 CLINICAL: Routine screening. Family history of breast cancer. Comparison is made to exams dated: 10/22/2018 mammogram, 09/14/2017 mammogram, and 09/11/2016 mammogram - [facility]. The tissue of both breasts is heterogeneously dense. This may lower the sensitivity of mammography. Current study was also evaluated with a Computer Aided Detection (CAD) system. No significant masses, calcifications, or other findings are seen in either breast. There has been no significant interval change. IMPRESSION: NEGATIVE There is no mammographic evidence of malignancy. A 1 year screening mammogram is recommended. This exam was interpreted at Station ID: [id number]. NOTE: For mammograms, a report in lay terms will be sent to the patient. Approximately 15% of breast malignancies will not be visualized mammographically. In the management of a palpable breast mass, a negative mammogram must not discourage biopsy of a clinically suspicious lesion. Electronically Signed By: Yovanny last/blu:10/29/2019 08:02:03 letter sent: Normal Exam ACR BI-RADS Category 1: Negative 3341F
== END ==
PROVIDERS: PCP Family Medicine; Referring Provider Family Medicine; Visit Provider Family Medicine
DX: Z12.31 Encounter for screening mammogram for malignant neoplasm of breast (principal); Z80.3 Family history of malignant neoplasm of breast
CPT/HCPCS: 77063; 77067

== ENCOUNTER → 2020-03-31 08:31 | Outpatient (CLI) | payer OTHER, SELFPAY ==
[2020-03-31 09:02] LABS: Hematocrit 43.6 % (36-46); Hemoglobin 14.7 g/dL (12.0-16.0); Mean Corpuscular HGB Conc 33.8 % (30-36); Mean Corpuscular Hemoglobin 30.8 PG (26-34); Mean Corpuscular Volume 91.1 fL (80-100); Platelet Count 236 X10^3/uL (150-400); Red Blood Cell Count 4.79 X10^6/uL (4.0-5.2); Red Cell Distribution Width 12.9 % (11.6-14.8); White Blood Cell Count 5.9 X10^3/uL (4.5-11.0)
[2020-03-31 09:51] LABS: Alanine Aminotransferase 32 IU/L (<35); Albumin 4.4 g/dL (3.5-5.0); Albumin Globulin Ratio 1.8 (1.0-2.8); Alkaline Phosphatase 66 U/L (38-126); Aspartate Aminotransferase 29 IU/L (14-36); BUN Creatinine Ratio 20.7 (6-22); Bilirubin Total 1.2 mg/dL (0.2-1.3); Blood Urea Nitrogen 12 mg/dL (7-17); Calcium 9.8 mg/dL (8.4-10.2); Carbon Dioxide 28 mmol/L (22-32); Chloride 101 mmol/L (98-107); Estimated Glomerular Filt Rate > 60.0 mL/min (>60); Globulin 2.4 g/dL (1.7-4.1); Glucose 102 mg/dL (80-110); HEMOLYSIS 23 (0-50); Sodium 135 mmol/L (137-145); Total Protein 6.8 g/dL (6.3-8.2)
[2020-03-31 10:39] LABS: Vitamin B12 Reflex MMA if <400 990 pg/mL (239-931)
[2020-04-01 23:04] LABS: Methylmalonic Acid,Serum 131 nmol/L (0-378)
== END ==
PROVIDERS: PCP Nurse Practitioner Family; Referring Provider Nurse Practitioner Family; Visit Provider Nurse Practitioner Family
DX: Z00.00 Encounter for general adult medical examination without abnormal findings (principal); E53.8 Deficiency of other specified B group vitamins; I49.9 Cardiac arrhythmia, unspecified; R10.9 Unspecified abdominal pain; R19.8 Other specified symptoms and signs involving the digestive system and abdomen
CPT/HCPCS: 36415; 80053; 82607; 83921; 85027

== ENCOUNTER → 2020-07-08 15:56 | Outpatient (CLI) | payer OTHER, SELFPAY ==
[2020-07-08 18:31] LABS: Bacteria Urine None Seen; RBC Urine None Seen (0-5/HPF)
[2020-07-08 18:38] LABS: Appearance Urine UA CLEAR; Bilirubin Urine UA NEGATIVE (NEGATIVE); Color Urine UA YELLOW; Glucose Urine UA NEGATIVE (Negative); Ketones Urine UA NEGATIVE (NEGATIVE); Leukocyte Esterase Urine UA NEGATIVE (NEGATIVE); Nitrite Urine UA NEGATIVE (Negative); Occult Blood Urine UA NEGATIVE (Negative); Protein Urine UA NEGATIVE (Negative); Specific Gravity Urine UA >=1.030 (1.000-1.035); Urobilinogen Urine UA 0.2 E.U./dL (0.2)
[2020-07-08 18:46] LABS: Culture Indicated Urine Cult Not Indicated; Squamous Epithelial Cell Urine 5-10 /HPF (0-5/HPF); WBC Urine 1-5/HPF (0-5/HPF)
== END ==
PROVIDERS: PCP Nurse Practitioner Family; Visit Provider Nurse Practitioner Family
DX: R30.0 Dysuria (principal)
CPT/HCPCS: 81001

== ENCOUNTER → 2020-07-08 16:14 | Outpatient (CLI) | payer OTHER, SELFPAY ==
--- NOTE | 2020-07-08 16:16 | DI.RAD.S_ITS ---
PROCEDURE: XR KNEE LT 3V INDICATIONS: knee bump TECHNIQUE: 3 views of the knee were acquired. COMPARISON: None. FINDINGS: Bones: No fractures or dislocations. No suspicious bony lesions. Soft tissues: No joint effusion. No suspicious soft tissue calcifications. IMPRESSION: No trauma found. Slight narrowing of the lateral compartment joint interspace, without subluxation. Dictated by: Gee Ornelas M.D. on 07/08/2020 at 16:58 Approved by: Gee Ornelas M.D. on 07/08/2020 at 16:59
== END ==
PROVIDERS: PCP Nurse Practitioner Family; Referring Provider Nurse Practitioner Family; Visit Provider Nurse Practitioner Family
DX: M25.562 Pain in left knee (principal); R30.0 Dysuria
CPT/HCPCS: 73562; 81001

== ENCOUNTER → 2020-11-09 12:24 | Outpatient (CLI) | payer MEDICARE, OTHER, SELFPAY ==
--- NOTE | 2020-11-09 | DI.RAD.S_ITS ---
PROCEDURE: XR CERVICAL SPINE 4V OR 5V INDICATIONS: BRACHIAL PLEXIS NERALGIA, LEFT SIDE SCIATICA TECHNIQUE: 5 views of the cervical spine were acquired. COMPARISON: None. FINDINGS: Bones: No fractures or dislocations to the T1 level. No suspicious bony lesions. Loss of lordosis which could be related to muscle spasm, rigidity or simply positional. Multilevel disc degeneration, severe at the C4-C5, C5-C6, C6-C7 and C7-T1 levels. Oblique views demonstrate mild neural foraminal narrowing on the left at the C4-C5, C5-C6 levels and on the right at the C3-C4, C4-C5, C5-C6 and C6-C7 levels. Soft tissues: Prevertebral soft tissues are normal in thickness. IMPRESSION: Loss of lordosis and multilevel spondylosis. Dictated by: Jeffy Fierro [facility] Interpreted: Willam Arnold MD on 11/09/2020 at 13:08 Transcribed by: NÉSTOR on 11/09/2020 at 13:10 Approved by: Gee Ornelas M.D. on 11/10/2020 at 13:35
--- NOTE | 2020-11-09 | DI.RAD.S_ITS ---
PROCEDURE: XR LUMBAR SPINE 2-3V INDICATIONS: BRACHIAL PLEXIS NERALGIA, LEFT SIDE SCIATICA TECHNIQUE: 3 views of the lumbar spine were acquired. COMPARISON: [facility], CT, CT ABDOMEN PELVIS WITH CONTRAST, 10/04/2017, 16:17. FINDINGS: Bones: 5 wbt-aib-mdfbaka vertebrae are present. Mild levoscoliosis centered at the L3 level. Left lateral fixation sudarshan and intervertebral surgical fixation screws extend from the T11 through the L3 level with hardware in expected position. There is trace multilevel retrolisthesis at the L4-L5 level. Mild L4-L5 and L5-S1 facet joint arthropathy. No vertebral body compression fractures. No suspicious bony lesions. Soft tissues: Overlying bowel gas pattern is normal. No suspicious soft tissue calcifications. IMPRESSION: 1. Fusion from the T11 to the L3 level with hardware in expected positions. 2. Mild facet joint arthropathy at the L4-L5 and L5-S1 levels. Dictated by: Jeffy ARAMBULA Interpreted: Willam Arnold MD on 11/09/2020 at 12:53 Transcribed by: NÉSTOR on 11/09/2020 at 12:56 Approved by: Gee Ornelas M.D. on 11/10/2020 at 13:35
== END ==
PROVIDERS: PCP Nurse Practitioner Family; Referring Provider Nurse Practitioner Family; Visit Provider Nurse Practitioner Family
DX: M54.32 Sciatica, left side (principal); M47.816 Spondylosis without myelopathy or radiculopathy, lumbar region; M47.817 Spondylosis without myelopathy or radiculopathy, lumbosacral region; M47.812 Spondylosis without myelopathy or radiculopathy, cervical region; Z98.1 Arthrodesis status
CPT/HCPCS: 72050; 72100

== ENCOUNTER → 2020-11-12 11:29 | Outpatient (CLI) | payer MEDICARE, OTHER, SELFPAY ==
--- NOTE | 2020-11-12 | DI.MG.S_ITS ---
BILATERAL DIGITAL SCREENING MAMMOGRAM 3D/2D WITH CAD: 11/12/2020 CLINICAL: Routine screening. Family history of breast cancer. Comparison is made to exams dated: 10/28/2019 mammogram, 10/22/2018 mammogram, and 09/14/2017 mammogram - [facility]. The tissue of both breasts is heterogeneously dense. This may lower the sensitivity of mammography. Current study was also evaluated with a Computer Aided Detection (CAD) system. No significant masses, calcifications, or other findings are seen in either breast. There has been no significant interval change. IMPRESSION: NEGATIVE There is no mammographic evidence of malignancy. A 1 year screening mammogram is recommended. This exam was interpreted at Station ID: [id number]. NOTE: For mammograms, a report in lay terms will be sent to the patient. Approximately 15% of breast malignancies will not be visualized mammographically. In the management of a palpable breast mass, a negative mammogram must not discourage biopsy of a clinically suspicious lesion. Electronically Signed By: Camacho Joseph M.D., jr/blu:11/12/2020 13:22:12 letter sent: Normal Exam ACR BI-RADS Category 1: Negative 3341F
== END ==
PROVIDERS: PCP Nurse Practitioner Family; Referring Provider Nurse Practitioner Family; Visit Provider Nurse Practitioner Family
DX: Z12.31 Encounter for screening mammogram for malignant neoplasm of breast (principal); Z80.3 Family history of malignant neoplasm of breast
CPT/HCPCS: 77063; 77067

== ENCOUNTER 2021-02-08 15:00 | Outpatient (RCR) | payer MEDICARE, OTHER, SELFPAY ==
--- NOTE | 2021-02-01 16:37 | PT.OIE ---
Current Diagnoses Muscle weakness (generalized) (02/01/21) Impingement syndrome of right shoulder (02/01/21) Past Medical History (Last Reviewed 11/05/20 @ 19:09 by ERIK Rodriguez) ADHD (~2006) Ankle pain Atypical chest pain Back pain Cardiac arrhythmia Chicken pox (~1960) Dysuria GERD (gastroesophageal reflux disease) (~2007) Headache Irritable bowel syndrome Mumps Recurrent sinusitis (~2012) Scoliosis (~1965) Seasonal allergies (~2012) Shoulder pain (~2013) Skin cancer, basal cell (~2013) Tinea corporis Vision disorder Vitamin B12 deficiency (2009) Past Surgical History (Last Reviewed 11/05/20 @ 19:09 by ERIK Rodriguez) Anesthesia Fracture (~02/2004) History of spinal fusion (~07/1980) Status post hysterectomy (~05/2000) Visit Care Team Role Provider Type ERIK Looney Family Provider Advanced Zipper Measurer Primary Care Provider Specialty: Family Practice Address: [address] [place] [address], [id number] Email: [email or web address] Luis Taylor MD Attending Provider Physician Referring Provider Specialty: Orthopedic Surgery Address: [address] [place] [address], [address] Email: [email or web address] Physical Therapy Initial Evaluation PT-OP-A Visit Information Start: 01/25/21 16:54 Freq: Status: Active Protocol: Document 02/01/21 15:09 LRN (Rec: 02/01/21 16:35 LRN [id number]) Out-Patient Physical Therapy Visit Information Visit Information Visit Type Initial Evaluation Visit Start Time 15:09 Visit Stop Time 15:57 Total Visit Minutes 48 Visit Number 1 Evaluation Information Evaluation Date 02/01/21 Precautions Precautions Allergies to tape. Spinal fusion to correct scoliosis 1979 Full hysterectomy 2000 Achilles Tendon repair 2017. 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 R shoulder hurt and after using R shoulder she couldn't move her arm. Then tried to roll pie crusts and couldn't move arm. Saw orthopedist and found to have inflamed bursa and was given a cortisone injection 01/24/21 and after a few days pain subsided. Has tenderness to palpation and if overworks it will bother me . Anytime pushing or applying pressure through the R arm causes shoulder pain. Prior Treatments and Tests X-ray Jan 18, 2021 - Cortisone injection in R shoulder. Future Testing and Treatments Planned Follow up appt with referring orthopedic physician 02/14/21 Treatment Goals Patient/Caregiver Goals Pt goal is to get exercises to prevent onset of pain. Prior Functional Status Baseline Function- ADL's Independent Baseline Function- Mobility Independent Baseline Function- Work/School Not working since Feb 1019 due to Covid. Current Functional Impairments (Reported) Functional Limitations- ADL's Limited with activities that apply pressure to the shoulder (pie crust making, scubbing floors) Functional Limitations- Other Seeing Chiropractor for the neck. Pt bought own cervical tracion unit. Personal Factors Other Personal Factors That May Effect Seeing chiropractor for neck Therapy/Recovery pain. Rods in spine. PT-OP-C Subjective Start: 01/25/21 16:54 Freq: Status: Active Protocol: Document 02/01/21 15:09 LRN (Rec: 02/01/21 16:35 LRN [id number]) Patient Questionnaires Quick Dash- Upper Extremity Quick Dash UE Score 9 Quick Dash UE Impairment 1 to 19% Impaired (Score 1-19) OP-PT Pain Assessment Pain Assessment Grid Paper Pain Assessment Grid Completed Yes Location R shoulder Pain Location Details R superior shoulder Intensity 2 Scale Used Numeric (0 - 10) Description Sharp Frequency Occasional Pain Aggravating Factors Changing Position Other Pain Aggravating Factors Pain with shoulder AB Other Pain Alleviating Factors Cortisone injection PT-OP-H Neuro Start: 01/25/21 16:54 Freq: Status: Active Protocol: Document 02/01/21 15:09 LRN (Rec: 02/01/21 16:35 LRN [id number]) Sensation Evaluation Gross Sensation Gross Sensation WNL PT-OP-J Posture/Palpation/Skin Start: 01/25/21 16:54 Freq: Status: Active Protocol: Document 02/01/21 15:09 LRN (Rec: 02/01/21 16:35 LRN [id number]) Posture Evaluation Position Sitting Shoulder Posture (R) Rounded,(R) Elevated Hip Posture (L) Neutral,(R) Neutral Comments Posture Comments Scoliosis of upper spine with apex on R. Rods down lower back to sacrum. Palpation Assessment Location R shouldler Palpation Location Superoposterior R acromion Palpation Findings Tenderness PT-OP-K Range of Motion Start: 01/25/21 16:54 Freq: Status: Active Protocol: Document 02/01/21 15:09 LRN (Rec: 02/01/21 16:35 LRN [id number]) Cervical Spine Range of Motion Cervical Spine Active Degrees Testing Position Sitting Flexion 68 Extension 50 Rotation Left 51 Rotation Right 46 Lateral Flexion Left 30 Lateral Flexion Right 30 Shoulder Goniometric Range of Motion Shoulder Right Passive Testing Position Supine Flexion 160 Abduction 166 External Rotation at 90 degrees 90 Abduction Internal Rotation 78 Left Passive Testing Position Supine Flexion 175 Abduction 148 External Rotation at 90 degrees 90 Abduction Internal Rotation 90 Right Active Shoulder ROM WFL No Testing Position Sitting Flexion 158 Extension 66 Abduction 148 Internal Rotation Behind Back (text) T6 Left Active Shoulder ROM WFL Yes Testing Position Sitting Flexion 150 Extension 70 Abduction 155 Internal Rotation Behind Back (text) T4 PT-OP-L Special Tests Start: 01/25/21 16:54 Freq: Status: Active Protocol: Document 02/01/21 15:09 LRN (Rec: 02/01/21 16:35 LRN [id number]) Special Tests Shoulder Special Tests Elevation Impingement Test Results + Comments Pain at end-range PT-OP-M Strength Start: 01/25/21 16:54 Freq: Status: Active Protocol: Document 02/01/21 15:09 LRN (Rec: 02/01/21 16:35 LRN [id number]) Cervical Spine Strength Cervical Spine Manual Muscle Testing Comments Generally 5/5 Shoulder Strength Shoulder Manual Muscle Testing Right Internal Rotation 4+ Good+ Comments Generally 5/5 except as indicated above. Pain in lateral shoulder with resisted ER and AB. Left Comments Generally 5/5 PT-OP-Q Treatments Start: 01/25/21 16:54 Freq: Status: Active Protocol: Document 02/01/21 15:09 LRN (Rec: 02/01/21 16:35 LRN [id number]) Therapeutic Exercises Sitting Exercises R scapular depression Sitting Exercise Name R scapular depression w/arm by side, done during self care I /S for HEP Side right Scapular retraction Sitting Exercise Name R right Scapular retraction, done during self care I/S for HEP. Side right Self-Care/Home Management Treatment Education Other Education Pt educated in results of evaluation. Discussed with pt goals and plan of care, with pt agreeable. Activities Self-Care/Home Management Activities I/S pt in home ex's of R scapluar retraction and Scapular depression. Physical and verbal cuing needed to get pt proper movement. PT-OP-T Assessment and Plan Start: 01/25/21 16:54 Freq: Status: Active Protocol: Document 02/01/21 15:09 LRN (Rec: 02/01/21 16:35 LRN [id number]) Physical Therapy Assessment Rehab Potential Rehabilitation Potential Excellent Evaluation Complexity Number of Personal Factors/Comorbidities 1-2 Number of Body Systems Impaired 3 Clinical Presentation at Evaluation Evolving Impairments Impairments Pain,ROM,Strength Goals One Impairment Lacks self care HEP Short Term Goal (STG) Pt will be educated in self care pain management techniques for home care. STG Duration 02/08/21 Penitentiary Goal (LTG) Pt will be educated and demonstrate knowledge of a self care HEP for her R shoulder AROM/scapulohumeral rhythm and RC strength. LTG Duration 02/22/21 Assessment Summary Assessment Pt is mildly decreased in cervical AROM, and decreased in bilateral shoulder AROM/ PROM. Her R shoulder is decreased in ER/IR strength ( IR>ER) with residual scapular weakness; therefore she presents with + impingement indicating rotator cuff dysfunction. The pt is expected to do well after being placed on a self care HEP. She will benefit from skilled physical therapy for education onto a self detention exercise program. Physical Therapy Plan Frequency and Duration Frequency of Treatment 2x/Week Plan of Care Start Date 02/01/21 Plan of Care End Date 02/22/21 Therapeutic Interventions Therapeutic Interventions Home Exercise Program,Joint Mobilizations,Manual Therapy, Patient/Caregiver Education, Self-Care/Home Management,Soft Tissue Mobilization, Therapeutic Exercises Modalities Cold Pack/Ice Massage, Ultrasound Next Visit Focus/Plan Next Note Type Treatment Note Next Visit Plan Review HEP: Scapular pinches, Scapular depression Add R shoulder ER/IR strengthening ex's. Improve R shoulder pain free AROM with focus on flex & AB by improving Scapulohumeral Rhythm. Expect DC to HEP in 1-2 visits .
--- NOTE | 2021-02-01 16:37 | PT.OPPOC ---
Physical, Occupational & Speech Therapy At [facility] Current Diagnoses Muscle weakness (generalized) (02/01/21) Impingement syndrome of right shoulder (02/01/21) Visit Care Team Role Provider Type ERIK Looney Family Provider Advanced Music Teacher Primary Care Provider Specialty: Family Practice Address: [address] [place] [address], [id number] Email: [email or web address] Luis Taylor MD Attending Provider Physician Referring Provider Specialty: Orthopedic Surgery Address: [address] [place] [address], [address] Email: [email or web address] Plan Of Care PT-OP-T Assessment and Plan Start: 01/25/21 16:54 Freq: Status: Active Protocol: Document 02/01/21 15:09 LRN (Rec: 02/01/21 16:35 LRN [id number]) Physical Therapy Assessment Rehab Potential Rehabilitation Potential Excellent Evaluation Complexity Number of Personal Factors/Comorbidities 1-2 Number of Body Systems Impaired 3 Clinical Presentation at Evaluation Evolving Impairments Impairments Pain,ROM,Strength Goals One Impairment Lacks self care HEP Short Term Goal (STG) Pt will be educated in self care pain management techniques for home care. STG Duration 02/08/21 Communication Assistant Goal (LTG) Pt will be educated and demonstrate knowledge of a self care HEP for her R shoulder AROM/scapulohumeral rhythm and RC strength. LTG Duration 02/22/21 Assessment Summary Assessment Pt is mildly decreased in cervical AROM, and decreased in bilateral shoulder AROM/ PROM. Her R shoulder is decreased in ER/IR strength ( IR>ER) with residual scapular weakness; therefore she presents with + impingement indicating rotator cuff dysfunction. The pt is expected to do well after being placed on a self care HEP. She will benefit from skilled physical therapy for education onto a self group home exercise program. Physical Therapy Plan Frequency and Duration Frequency of Treatment 2x/Week Plan of Care Start Date 02/01/21 Plan of Care End Date 02/22/21 Therapeutic Interventions Therapeutic Interventions Home Exercise Program,Joint Mobilizations,Manual Therapy, Patient/Caregiver Education, Self-Care/Home Management,Soft Tissue Mobilization, Therapeutic Exercises Modalities Cold Pack/Ice Massage, Ultrasound Next Visit Focus/Plan Next Note Type Treatment Note Next Visit Plan Review HEP: Scapular pinches, Scapular depression Add R shoulder ER/IR strengthening ex's. Improve R shoulder pain free AROM with focus on flex & AB by improving Scapulohumeral Rhythm. Expect DC to HEP in 1-2 visits . Plan of Care Dates Plan of Care Start Date 02/01/21 Plan of Care End Date 02/22/21 Electronically Signed by: Deborah Pelaez, PT 02/01/21 [id number] Please Sign and Return: I have reviewed this Plan of Care and certify that the skilled therapy services above are required to meet the patient?s needs. Physician Signature Date Printed Name and Credentials Clinical Instructor Signature Printed Name and Credentials
--- NOTE | 2021-02-08 15:55 | PT.OTN ---
Current Diagnoses Muscle weakness (generalized) (02/08/21) Impingement syndrome of right shoulder (02/08/21) Physical Therapy Treatment Note PT-OP-A Visit Information Start: 01/25/21 16:54 Freq: Status: Active Protocol: Document 02/08/21 15:03 LRN (Rec: 02/08/21 15:54 LRN [id number]) Out-Patient Physical Therapy Visit Information Visit Information Visit Type Treatment Note Visit Start Time 15:03 Visit Stop Time 15:48 Total Visit Minutes 45 Visit Number 3 Evaluation Information Evaluation Date 02/01/21 Precautions Precautions Allergies to tape. Spinal fusion to correct scoliosis 1979 Full hysterectomy 2000 Achilles Tendon repair 2016. 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 R shoulder hurt and after using R shoulder she couldn't move her arm. Then tried to roll pie crusts and couldn't move arm. Saw orthopedist and found to have inflamed bursa and was given a cortisone injection 01/24/21 and after a few days pain subsided. Has tenderness to palpation and if overworks it will bother me . Anytime pushing or applying pressure through the R arm causes shoulder pain. Prior Treatments and Tests X-ray Jan 18, 2021 - Cortisone injection in R shoulder. Future Testing and Treatments Planned Follow up appt with referring orthopedic physician 02/14/21 Treatment Goals Patient/Caregiver Goals Pt goal is to get exercises to prevent onset of pain. Prior Functional Status Baseline Function- ADL's Independent Baseline Function- Mobility Independent Baseline Function- Work/School Not working since Feb 1019 due to Covid. Current Functional Impairments (Reported) Functional Limitations- ADL's Limited with activities that apply pressure to the shoulder (pie crust making, scubbing floors) Functional Limitations- Other Seeing Chiropractor for the neck. Pt bought own cervical tracion unit. Personal Factors Other Personal Factors That May Effect Seeing chiropractor for neck Therapy/Recovery pain. Rods in spine. PT-OP-C Subjective Start: 01/25/21 16:54 Freq: Status: Active Protocol: Document 02/08/21 15:03 LRN (Rec: 02/08/21 15:54 LRN [id number]) OP-PT Subjective Patient Comments Patient Comments Pt reports she has been doing 10 reps with exercises. Reports no soreness in the shoulders. PT-OP-H Neuro Start: 01/25/21 16:54 Freq: Status: Active Protocol: Document 02/01/21 15:09 LRN (Rec: 02/01/21 16:35 LRN [id number]) Sensation Evaluation Gross Sensation Gross Sensation WNL PT-OP-J Posture/Palpation/Skin Start: 01/25/21 16:54 Freq: Status: Active Protocol: Document 02/01/21 15:09 LRN (Rec: 02/01/21 16:35 LRN [id number]) Posture Evaluation Position Sitting Shoulder Posture (R) Rounded,(R) Elevated Hip Posture (L) Neutral,(R) Neutral Comments Posture Comments Scoliosis of upper spine with apex on R. Rods down lower back to sacrum. Palpation Assessment Location R shouldler Palpation Location Superoposterior R acromion Palpation Findings Tenderness PT-OP-K Range of Motion Start: 01/25/21 16:54 Freq: Status: Active Protocol: Document 02/01/21 15:09 LRN (Rec: 02/01/21 16:35 LRN [id number]) Cervical Spine Range of Motion Cervical Spine Active Degrees Testing Position Sitting Flexion 68 Extension 50 Rotation Left 51 Rotation Right 46 Lateral Flexion Left 30 Lateral Flexion Right 30 Shoulder Goniometric Range of Motion Shoulder Right Passive Testing Position Supine Flexion 160 Abduction 166 External Rotation at 90 degrees 90 Abduction Internal Rotation 78 Left Passive Testing Position Supine Flexion 175 Abduction 148 External Rotation at 90 degrees 90 Abduction Internal Rotation 90 Right Active Shoulder ROM WFL No Testing Position Sitting Flexion 158 Extension 66 Abduction 148 Internal Rotation Behind Back (text) T6 Left Active Shoulder ROM WFL Yes Testing Position Sitting Flexion 150 Extension 70 Abduction 155 Internal Rotation Behind Back (text) T4 PT-OP-L Special Tests Start: 01/25/21 16:54 Freq: Status: Active Protocol: Document 02/01/21 15:09 LRN (Rec: 02/01/21 16:35 LRN [id number]) Special Tests Shoulder Special Tests Elevation Impingement Test Results + Comments Pain at end-range PT-OP-M Strength Start: 01/25/21 16:54 Freq: Status: Active Protocol: Document 02/01/21 15:09 LRN (Rec: 02/01/21 16:35 LRN [id number]) Cervical Spine Strength Cervical Spine Manual Muscle Testing Comments Generally 5/5 Shoulder Strength Shoulder Manual Muscle Testing Right Internal Rotation 4+ Good+ Comments Generally 5/5 except as indicated above. Pain in lateral shoulder with resisted ER and AB. Left Comments Generally 5/5 PT-OP-Q Treatments Start: 01/25/21 16:54 Freq: Status: Active Protocol: Document 02/08/21 15:03 LRN (Rec: 02/08/21 15:54 LRN [id number]) Therapeutic Exercises Supine Exercises Shdr ER stretch Supine Exercise Name Shdr ER stretch Side bilateral Reps/Minutes 60 x 1 Shdr AB Supine Exercise Name Active f/b static stretch in end-range AB Side bilateral Reps/Minutes 6' Shdr Flex stretch Supine Exercise Name Arms overhead stretch Side bilateral Reps/Minutes 3' Standing Exercises Shldr ER strengthening Standing Exercise Name Shdr ER strengthening Side bilateral Equipment Used Lev 1 TB Reps/Minutes 15x Lat Pull Down Standing Exercise Name Lat Pull Down Side bilateral Equipment Used Lev 1 TB Reps/Minutes 15x Comments Much extra time taken for training and proper positioning. Stretch Shdr ER Standing Exercise Name Doorway stretch Side bilateral Reps/Minutes 3' Comments Extra time taken for training and proper positioning. Stretch Shdr IR Standing Exercise Name Shdr IR stretch Side right Equipment Used Strap Reps/Minutes 3' Comments Extra time taken for training and proper positioning. Chest press with extra push Standing Exercise Name Chest press with extra shove Side bilateral Reps/Minutes 15x Comments Cuing for scapular distraction at end range Row Standing Exercise Name Row Side bilateral Reps/Minutes 15x Comments Cuing for scapular pinches Shoulder IR Standing Exercise Name IR strengthening shoulder Side right Equipment Used Lev 1 Reps/Minutes 15x Comments Phy & v cuing for proper elbow /scapular positioning Self-Care/Home Management Treatment Education Patient Education Home Exercise Program Other Education Reviewed previous HEP of strengthening ex's for shoulders. Activities Self-Care/Home Management Activities Issued & reviewed HEP: Shoulder stretches into flex, AB, ER, IR. PT-OP-T Assessment and Plan Start: 01/25/21 16:54 Freq: Status: Active Protocol: Document 02/08/21 15:03 LRN (Rec: 02/08/21 15:54 LRN [id number]) Physical Therapy Assessment Goals One Impairment Lacks self care HEP Short Term Goal (STG) Pt will be educated in self care pain management techniques for home care. (02/03/21: Pt educated in use of cold for pain management). STG Duration 02/08/21 (02/03/21: MET GOAL ) Residential Goal (LTG) Pt will be educated and demonstrate knowledge of a self care HEP for her R shoulder AROM/scapulohumeral rhythm and RC strength. (02/03/21: Issued HEP of R shoulder RC & SHR strengthening). (02/08/21: Issued HEP of shdr stretching). LTG Duration 02/22/21 (02/08/21: MET GOAL ) Progress Towards Goals Progress Comments Completed self care HEP. Assessment Summary Assessment Pt showed good understanding of her strengthening program except for scapular retraction /depression ex (lat pull down) . After review she showed good understanding of the exercise. The pt showed good understanding of shoulder stretches after review. She is now able to perform shoulder AROM without complaints of pain. Pt is ready for discharge to her independent self care HEP. Physical Therapy Plan Discharge Physical Therapy Discharge Reasons Goals Met Discharge Comments Thank you for your referral.
== END 2021-04-26 09:40 ==
LOC: PHYS 15:00
PROVIDERS: Family Provider Nurse Practitioner Family; PCP Nurse Practitioner Family; Referring Provider Orthopaedic Surgery; Visit Provider Orthopaedic Surgery
DX: M75.41 Impingement syndrome of right shoulder (principal); M62.81 Muscle weakness (generalized)
CPT/HCPCS: 97110; 97162; 97535

== ENCOUNTER → 2021-06-18 10:07 | Outpatient (CLI) | payer MEDICARE, OTHER, SELFPAY ==
[2021-06-18 10:55] LABS: Hematocrit 41.1 % (36-46); Hemoglobin 14.3 g/dL (12.0-16.0); Mean Corpuscular HGB Conc 34.8 % (30-36); Mean Corpuscular Hemoglobin 31.3 PG (26-34); Mean Corpuscular Volume 89.9 fL (80-100); Platelet Count 201 X10^3/uL (150-400); Red Blood Cell Count 4.58 X10^6/uL (4.0-5.2); Red Cell Distribution Width 12.9 % (11.6-14.8); White Blood Cell Count 5.1 X10^3/uL (4.5-11.0)
[2021-06-18 11:13] LABS: Alanine Aminotransferase 19 IU/L (<35); Albumin 4.4 g/dL (3.5-5.0); Albumin Globulin Ratio 1.8 (1.0-2.8); Alkaline Phosphatase 58 U/L (38-126); Aspartate Aminotransferase 22 IU/L (14-36); BUN Creatinine Ratio 15.5 (6-22); Bilirubin Total 1.5 mg/dL (0.2-1.3); Blood Urea Nitrogen 11 mg/dL (7-17); Calcium 9.7 mg/dL (8.4-10.2); Carbon Dioxide 26 mmol/L (22-32); Chloride 102 mmol/L (98-107); Cholesterol 135 mg/dL (140-199); Estimated Glomerular Filt Rate > 60.0 mL/min (>60); Globulin 2.4 g/dL (1.7-4.1); Glucose 100 mg/dL (80-110); HDL Cholesterol 62 mg/dL (40-60); HEMOLYSIS < 15 (0-50); LDL Cholesterol Calculated 51 mg/dL (<100); Potassium 4.1 mmol/L (3.4-5.1); Sodium 135 mmol/L (137-145); Total Protein 6.8 g/dL (6.3-8.2); Triglycerides 112 mg/dL (35-150)
[2021-06-18 11:41] LABS: TSH w/ Reflex to FT4 1.31 uIU/mL (0.47-4.68)
== END ==
PROVIDERS: Family Provider Nurse Practitioner Family; PCP Nurse Practitioner Family; Referring Provider Nurse Practitioner Family; Visit Provider Nurse Practitioner Family
DX: E78.1 Pure hyperglyceridemia (principal); F32.4 Major depressive disorder, single episode, in partial remission; R44.8 Other symptoms and signs involving general sensations and perceptions; Z00.00 Encounter for general adult medical examination without abnormal findings
CPT/HCPCS: 80053; 80061; 84443; 85027

== ENCOUNTER → 2021-12-07 12:55 | Outpatient (CLI) | payer MEDICARE, OTHER, SELFPAY ==
--- NOTE | 2021-12-07 12:58 | DI.MG.S_ITS ---
BILATERAL DIGITAL SCREENING MAMMOGRAM 3D/2D WITH CAD: 12/07/2021 CLINICAL: Routine screening. Family history of breast cancer. Comparison is made to exams dated: 11/12/2020 mammogram, 10/28/2019 mammogram, and 10/22/2018 mammogram - [facility]. Both breasts are heterogeneously dense, which may obscure small masses (category c / 51-75% glandular tissue). Current study was also evaluated with a Computer Aided Detection (CAD) system. No significant masses, calcifications, or other findings are seen in either breast. There has been no significant interval change. IMPRESSION: NEGATIVE There is no mammographic evidence of malignancy. A 1 year screening mammogram is recommended. This exam was interpreted at Station ID: [id number]. NOTE: For mammograms, a report in lay terms will be sent to the patient. Approximately 15% of breast malignancies will not be visualized mammographically. In the management of a palpable breast mass, a negative mammogram must not discourage biopsy of a clinically suspicious lesion. Electronically Signed By: Nelda solis/blu:12/07/2021 14:06:45 letter sent: Normal Exam ACR BI-RADS Category 1: Negative [id number]
== END ==
PROVIDERS: Family Provider Nurse Practitioner Family; PCP Registered Nurse Diabetes Educator; Referring Provider Registered Nurse Diabetes Educator; Visit Provider Registered Nurse Diabetes Educator
DX: Z12.31 Encounter for screening mammogram for malignant neoplasm of breast (principal); Z80.3 Family history of malignant neoplasm of breast
CPT/HCPCS: 77063; 77067

== ENCOUNTER → 2022-04-11 12:02 | Outpatient (CLI) | payer MEDICARE, OTHER, SELFPAY ==
--- NOTE | 2022-04-11 12:03 | DI.US.S_ITS ---
ULTRASOUND OF LEFT BREAST: 04/11/2022 CLINICAL: Focal left breast pain. Comparison is made to exams dated: 04/11/2022 mammogram, 12/07/2021 mammogram, 11/12/2020 mammogram, 10/28/2019 mammogram, and 10/22/2018 mammogram - [facility]. Color flow and real-time ultrasound of the left breast were performed. Hsu scale images of the real-time examination were reviewed. No significant abnormalities were seen sonographically in the left breast. IMPRESSION: NEGATIVE There is no sonographic evidence of malignancy. There is no abnormality seen in the left breast to correspond with the area of clinical concern and pain, however, recommend clinical follow up for persistent or worsening symptoms, or development of any clinically suspicious findings. Return to annual mammogram screening schedule is recommended. Findings and recommendations were conveyed to the patient during today's evaluation. This exam was interpreted at Station ID: [id number]. Electronically Signed By: Castillo Abbasi M.D. at/:04/11/2022 14:12:09 letter sent: Clinical Evaluation Ultrasound BI-RADS: 1 Negative
--- NOTE | 2022-04-11 12:03 | DI.MG.S_ITS ---
UNILATERAL LEFT DIGITAL DIAGNOSTIC MAMMOGRAM 3D/2D: 04/11/2022 CLINICAL: Focal left breast pain. Comparison is made to exams dated: 12/07/2021 mammogram, 11/12/2020 mammogram, and 10/28/2019 mammogram - [facility]. The left breast is heterogeneously dense, which may obscure small masses (category c / 51-75% glandular tissue). No significant masses, calcifications, or other findings are seen in the breast. IMPRESSION: INCOMPLETE: NEEDS ADDITIONAL IMAGING EVALUATION There is no abnormality seen in the left breast to correspond with the area of clinical concern and pain in the anterior breast indicated by square marker, however, an ultrasound is recommended for further evaluation and is scheduled to immediately follow this examination. This exam was interpreted at Station ID: [id number]. NOTE: For mammograms, a report in lay terms will be sent to the patient. Approximately 15% of breast malignancies will not be visualized mammographically. In the management of a palpable breast mass, a negative mammogram must not discourage biopsy of a clinically suspicious lesion. Electronically Signed By: Castillo Abbasi M.D. aty/:04/11/2022 14:10:51 ACR BI-RADS Category 0: Incomplete [id number]
== END ==
PROVIDERS: Family Provider Nurse Practitioner Family; PCP Registered Nurse Diabetes Educator; Referring Provider Registered Nurse Diabetes Educator; Visit Provider Family Medicine
DX: N64.4 Mastodynia (principal); R92.2 Inconclusive mammogram
CPT/HCPCS: 76642; 77065; G0279

== ENCOUNTER → 2022-06-15 08:59 | Outpatient (CLI) | payer MEDICARE, OTHER, SELFPAY ==
[2022-06-15 10:21] LABS: Hematocrit 41.3 % (36-46); Hemoglobin 13.7 g/dL (12.0-16.0); Mean Corpuscular HGB Conc 33.2 % (30-36); Mean Corpuscular Hemoglobin 32.5 PG (26-34); Platelet Count 194 X10^3/uL (150-400); Red Blood Cell Count 4.21 X10^6/uL (4.0-5.2); Red Cell Distribution Width 13.6 % (11.6-14.8); White Blood Cell Count 4.9 X10^3/uL (4.5-11.0)
[2022-06-15 10:41] LABS: Alanine Aminotransferase 36 IU/L (<35); Albumin 4.1 g/dL (3.5-5.0); Albumin Globulin Ratio 1.6 (1.0-2.8); Alkaline Phosphatase 66 U/L (38-126); Aspartate Aminotransferase 32 IU/L (14-36); BUN Creatinine Ratio 23.8 (6-22); Bilirubin Total 1.1 mg/dL (0.2-1.3); Blood Urea Nitrogen 15 mg/dL (7-17); Calcium 9.4 mg/dL (8.4-10.2); Carbon Dioxide 29 mmol/L (22-32); Chloride 100 mmol/L (98-107); Cholesterol 162 mg/dL (140-199); Estimated Glomerular Filt Rate > 60 mL/min (>60); Globulin 2.5 g/dL (1.7-4.1); Glucose 80 mg/dL (80-110); HDL Cholesterol 68 mg/dL (40-60); HEMOLYSIS < 15 (0-50); LDL Cholesterol Calculated 75 mg/dL (<100); Potassium 4.3 mmol/L (3.4-5.1); Sodium 135 mmol/L (137-145); Total Protein 6.6 g/dL (6.3-8.2); Triglycerides 93 mg/dL (35-150)
[2022-06-15 11:14] LABS: TSH w/ Reflex to FT4 1.34 uIU/mL (0.47-4.68)
== END ==
PROVIDERS: Family Provider Nurse Practitioner Family; PCP Registered Nurse Diabetes Educator; Referring Provider Registered Nurse Diabetes Educator; Visit Provider Registered Nurse Diabetes Educator
DX: E78.5 Hyperlipidemia, unspecified (principal); I49.9 Cardiac arrhythmia, unspecified
CPT/HCPCS: 36415; 80053; 80061; 84443; 85027

== ENCOUNTER → 2022-06-29 12:06 | Outpatient (CLI) | payer MEDICARE, OTHER, SELFPAY ==
--- NOTE | 2022-06-29 12:24 | DI.DEXA.S_ITS ---
Bone Density Report Name: KAROLINA LEON Age: 66 Sex: Female Ethnicity: White Date of : 1955 Indication: postmenopausal; screening for osteoporosis; Referring Provider: HUANG GRIFFITHS Study: Bone densitometry was performed. Exam Date: June 29, 2022 Accession number: [id number] Bone Density: Region BMD T-score Z-score Classification Femoral Neck (Left) 0.614 -2.1 -0.5 Osteopenia Total Hip (Left) 0.782 -1.3 0.0 Osteopenia Femoral Neck (Right) 0.617 -2.1 -0.5 Osteopenia Total Hip (Right) 0.775 -1.4 -0.1 Osteopenia Total Hip Mean 0.779 -1.4 -0.1 Osteopenia Total Forearm (Left) 0.449 -2.4 -0.7 Osteopenia 1/3 Forearm (Left) 0.551 -2.4 -0.6 Osteopenia UD Forearm (Left) 0.359 -1.4 -0.2 Osteopenia World Health Organization criteria for BMD impression classify patients as: Normal (T-score at or above -1.0), Osteopenia (T-score between -1.0 and -2.5), or Osteoporosis (T-score at or below -2.5). 10-year Fracture Risk(1): Major Osteoporotic Fracture 11% Hip Fracture 1.8% Reported Risk Factors: [place] (), Neck BMD=0.614, BMI=23.3 (1) FRAX(R) Version 3.08. Fracture probability calculated for an untreated patient. Fracture probability may be lower if the patient has received treatment. Impression: The patient has low bone mass, based on the Left Femoral Neck T-score. The patient has an estimated ten-year risk of hip fracture of 1.8% and an estimated ten-year risk of major fracture of 11%, based on the WHO FRAX algorithm. Discussion: BONE DENSITY IS LOW AT ONE OR MORE SKELETAL SITES. This patient's lowest T-score is low at one or more skeletal sites. It meets the World Health Organization's (WHO) criteria for ?low bone mass? (T-score between -1.0 and -2.5). The patient's 10-year risk of fracture as calculated by FRAX is less than the threshold where pharmacological therapy is recommended by the National Osteoporosis Foundation (NOF). However, all treatment decisions require clinical judgment and consideration of individual patient factors, including patient preferences, comorbidities, previous drug use, risk factors not captured in the FRAX model (e.g., frailty, falls, vitamin D deficiency, increased bone turnover, interval significant decline in bone density) and possible under or overestimation of fracture risk by FRAX. The patient should follow a healthful lifestyle (good nutrition with adequate calcium and vitamin D, and appropriate weight-bearing exercise). Follow-Up: Consider repeating this study in 2 to 3 years to reassess this patient's status, or sooner if there is some new clinical indication. Reported by: TISHA CABALLERO M.D. on 06/29/2022 12:38:00 PM.
== END ==
PROVIDERS: Family Provider Nurse Practitioner Family; PCP Registered Nurse Diabetes Educator; Referring Provider Registered Nurse Diabetes Educator; Visit Provider Registered Nurse Diabetes Educator
DX: M85.852 Other specified disorders of bone density and structure, left thigh (principal); Z13.820 Encounter for screening for osteoporosis; Z78.0 Asymptomatic menopausal state
CPT/HCPCS: 77080

== ENCOUNTER → 2022-09-07 14:11 | Outpatient (CLI) | payer MEDICARE, OTHER, SELFPAY | PROVIDERS: Family Provider Nurse Practitioner Family; PCP Registered Nurse Diabetes Educator; Visit Provider Nurse Practitioner Family | DX: R30.0 Dysuria (principal); R35.0 Frequency of micturition | CPT/HCPCS: 87077; 87086; 87186 ==

== ENCOUNTER 2022-09-19 12:09 | Day surgery (SDC) | payer MEDICARE, OTHER, SELFPAY ==
[2022-09-19] MEDS: LACTATED RINGERS 1,000 ML 200 ML IV (12:37)
[2022-09-19 12:57] VITALS: BP 126/80; PULSE 88; RESP 18; TEMP 36.4; O2SAT 99; BMI 21.9
--- NOTE | 2022-09-19 13:35 | P.HP_ITS ---
History of Present Illness History of Present Illness Date Patient Seen: 09/19/22 Chief complaint: Screening Colonoscopy Narrative: The patient presents for colorectal screening. No personal or family history of colon cancer. She had an attempted colonoscopy 10 years ago which was incom plete secondary to a tortuous colon, the barium enema follow-up was reportedly normal. FOR[facility]LY [facility] Medical History ADHD (~2006) Ankle pain Atypical chest pain Back pain Cardiac arrhythmia Chicken pox (~1960) Dyslipidemia Dysuria GERD (gastroesophageal reflux disease) (~2007) Headache HSV-2 (herpes simplex virus 2) infection Hypertriglyceridemia (2019) Irritable bowel syndrome Mumps Recurrent sinusitis (~2012) Scoliosis (~1965) Seasonal allergies (~2012) Shoulder pain (~2013) Skin cancer, basal cell (~2013) SVT (supraventricular tachycardia) Tinea corporis Vision disorder Vitamin B12 deficiency (2009) Surgical History Anesthesia Fracture (~02/2004) History of spinal fusion (~07/1980) Status post hysterectomy (~05/2000) Family History Father Heart disease Mother Heart disease Social History marital status: household members: spouse Smoking Status: Never smoker alcohol intake: current substance use type: does not use Meds Home Medications and Allergies Home Medications Medication Instructions Recorded Confirmed Type atorvastatin 20 mg tablet 20 mg PO BEDTIME 03/24/20 09/19/22 History diltiazem HCl 180 mg 180 mg PO DAILY 06/21/22 09/19/22 History capsule,extended release 24 hr estradiol 0.01% (0.1 mg/gram) See Rx Instructions .Route 06/21/22 09/19/22 Rx vaginal cream .COMPLEX #42.5 grams valacyclovir 1 gram tablet 1,000 mg PO DAILY #90 tabs 06/21/22 09/19/22 Rx (Valtrex) paroxetine HCl 20 mg tablet See Rx Instructions .Route 06/27/22 09/19/22 Rx .COMPLEX #30 tabs atomoxetine 40 mg capsule 40 mg PO DAILY #90 caps 08/16/22 09/19/22 Rx (Strattera) Allergies Allergy/AdvReac Type Severity Reaction Status Date / Time codeine [CODEINE] AdvReac Intermediate NAUSEA Verified 09/19/22 12:38 Exam Vital Signs (past 8 hours): - 09/19/22 12:57 Temperature 97.6 F Pulse Rate 88 Respiratory Rate 18 Blood Pressure 126/80 Pulse Oximetry 99 Oxygen Delivery Method Room Air Oxygen Delivery Method Room Air Narrative Exam Narrative: General adult woman alert oriented no acute distress Chest nonlabored respiration Abdomen soft nontender nondistended Assessment & Plan Assessment & Plan narrative: The patient requires colorectal screening and colonoscopy is recommended. Technical details were discussed. Risks, benefits, alternatives explained. Risks including but not limited to myocardial infarction, aspiration, bleeding, pain, missed lesion, incomplete examination, need for further radiographic studies, colonic perforation, and need for major abdominal surgery were discussed. All questions were answered to their satisfaction, and they are in agreement with this plan.
[2022-09-19 14:20] VITALS: BP 124/73; PULSE 81; RESP 18; TEMP 36.6; O2SAT 99
--- NOTE | 2022-09-19 14:21 | PM.OP.COLON ---
Operative Date/Time/Diagnoses Date of procedure: 09/19/22 Time of procedure: 14:21 Pre-op diagnosis: Colorectal screening Post-op diagnosis: same Procedure & Clinicians Study performed: Colonoscopy Same procedure as scheduled: Yes Indications: Colorectal screening Surgeon: Ty Silva Procedure Notes Procedure in detail: The history and physical was performed/updated and the patient is ASA class is 2. The procedure was discussed in detail with the patient. Potential risks complications including infection, bleeding, missed diagnosis, perforation, need for surgery, and were explained. Their questions were answered and informed consent was obtained. Patient was brought to the procedure room and placed standard monitoring equipment. The patient's vital signs were monitored continuously throughout the entire procedure. Prior to starting time-out was performed. The patient was placed in the left lateral recumbent position. Procedural sedation was administered by anesthesia. Examination began with a thorough inspection of the perianal area there was no evidence of fissures, fistulae, external hemorrhoids or cutaneous malignancy. The colonoscopy scope was then placed into the anal canal and was advanced to the cecum, which was identified by the ileocecal valve, the appendiceal orifice and the confluence of the taenia. The scope was then slowly withdrawn examining colon thoroughly in all directions, irrigating it of any residual stool. Normal healthy colon. Marked colonic tortuosity. Stiffener and external compression were necessary. The patient tolerated the procedure well. They will be discharged once criteria are met. The prep was of good/excellent quality. The withdrawl time was 7 minutes. Specimen(s): none sent Impression: Normal colonoscopy Post-procedure Recommendations: Colonoscopy in 10 years and High fiber diet Disposition: same day surgery
[2022-09-19 14:25] VITALS: BP 157/88; PULSE 80; RESP 16; TEMP 36.5; O2SAT 100
[2022-09-19 14:31] VITALS: BP 155/87; PULSE 76; RESP 18; TEMP 36.5; O2SAT 99
[2022-09-19 14:35] VITALS: BP 157/86; PULSE 74; RESP 15; O2SAT 110
== END 2022-09-19 14:46 | disposition home or self-care (01) ==
PROVIDERS: Family Provider Nurse Practitioner Family; PCP Registered Nurse Diabetes Educator; Referring Provider Surgery; Visit Provider Surgery
PROC: 0DJD8ZZ Inspection of Lower Intestinal Tract, Via Natural or Artificial Opening Endoscopic (ICD-10-PCS; CPT 45378; principal; 2022-09-19 13:15)
DX: Z12.11 Encounter for screening for malignant neoplasm of colon (principal)
CPT/HCPCS: G0121; J2250; J3010

== ENCOUNTER → 2022-11-28 10:58 | Outpatient (CLI) | payer MEDICARE, OTHER, SELFPAY ==
[2022-11-28 12:17] LABS: Alanine Aminotransferase 23 IU/L (<35); Albumin 4.4 g/dL (3.5-5.0); Alkaline Phosphatase 64 U/L (38-126); Aspartate Aminotransferase 23 IU/L (14-36); BUN Creatinine Ratio 20.6 (6-22); Bilirubin Total 1.4 mg/dL (0.2-1.3); Blood Urea Nitrogen 14 mg/dL (7-17); Calcium 9.6 mg/dL (8.4-10.2); Carbon Dioxide 27 mmol/L (22-32); Chloride 101 mmol/L (98-107); Cholesterol 169 mg/dL (140-199); Estimated Glomerular Filt Rate > 60 mL/min (>60); Globulin 2.2 g/dL (1.7-4.1); Glucose 90 mg/dL (80-110); HDL Cholesterol 66 mg/dL (40-60); HEMOLYSIS < 15 (0-50); LDL Cholesterol Calculated 87 mg/dL (<100); Potassium 4.4 mmol/L (3.4-5.1); Sodium 133 mmol/L (137-145); Total Protein 6.6 g/dL (6.3-8.2); Triglycerides 78 mg/dL (35-150)
== END ==
PROVIDERS: PCP Registered Nurse Diabetes Educator; Referring Provider Internal Medicine Cardiovascular Disease; Visit Provider Internal Medicine Cardiovascular Disease
DX: E78.5 Hyperlipidemia, unspecified (principal)
CPT/HCPCS: 36415; 80053; 80061

== ENCOUNTER → 2022-12-24 11:52 | Outpatient (CLI) | payer MEDICARE, OTHER, SELFPAY ==
[2022-12-24 13:33] LABS: Influenza A - CEPHEID Flu A NEGATIVE (NEGATIVE); Influenza B - CEPHEID Flu B NEGATIVE (NEGATIVE); Respiratory Syncytial Virus Negative (Negative)
[2022-12-24 13:46] LABS: COVID-19 CEPHEID 4-PLEX PCR Negative (Negative)
== END ==
PROVIDERS: PCP Registered Nurse Diabetes Educator; Visit Provider Physician Assistant
DX: R05.1 Acute cough (principal); Z20.822 Contact with and (suspected) exposure to COVID-19
CPT/HCPCS: 0241U

== ENCOUNTER → 2023-02-22 11:13 | Outpatient (CLI) | payer MEDICARE, OTHER, SELFPAY ==
[2023-02-22 12:06] LABS: Influenza A - CEPHEID Flu A NEGATIVE (NEGATIVE); Influenza B - CEPHEID Flu B NEGATIVE (NEGATIVE); Respiratory Syncytial Virus Negative (Negative)
[2023-02-22 12:10] LABS: COVID-19 CEPHEID 4-PLEX PCR Negative (Negative)
== END ==
PROVIDERS: PCP Registered Nurse Diabetes Educator; Visit Provider Nurse Practitioner Family
DX: R05.1 Acute cough (principal)
CPT/HCPCS: 0241U

== ENCOUNTER → 2023-03-14 11:29 | Outpatient (CLI) | payer MEDICARE, OTHER, SELFPAY ==
[2023-03-14 12:08] LABS: Add Manual Diff / Slide Review NO; Basophils Absolute Auto 100 /uL (0-100); Basophils Percent Auto 0.9 % (0-2); Eosinophils Absolute Auto 100 /uL (0-450); Eosinophils Percent Auto 1.4 % (2-4); Hematocrit 39.3 % (36-46); Hemoglobin 13.4 g/dL (12.0-16.0); Lymphocytes Absolute Auto 2000 /uL (1100-4500); Lymphocytes Percent Auto 32.2 % (25-40); Monocytes Absolute Auto 300 /uL (0-900); Monocytes Percent Auto 5.5 % (3-14); Neutrophils Absolute Auto 3800 /uL (1500-7000); Platelet Count 257 X10^3/uL (150-400); Red Blood Cell Count 4.05 X10^6/uL (4.0-5.2); White Blood Cell Count 6.3 X10^3/uL (4.5-11.0)
[2023-03-14 12:55] LABS: Alanine Aminotransferase 27 IU/L (<35); Albumin 4.1 g/dL (3.5-5.0); Albumin Globulin Ratio 1.6 (1.0-2.8); Alkaline Phosphatase 77 U/L (38-126); Aspartate Aminotransferase 31 IU/L (14-36); BUN Creatinine Ratio 26.2 (6-22); Blood Urea Nitrogen 16 mg/dL (7-17); Calcium 9.8 mg/dL (8.4-10.2); Carbon Dioxide 28 mmol/L (22-32); Chloride 100 mmol/L (98-107); Estimated Glomerular Filt Rate > 60 mL/min (>60); Globulin 2.6 g/dL (1.7-4.1); Glucose 93 mg/dL (80-110); HEMOLYSIS < 15 (0-50); Potassium 3.7 mmol/L (3.4-5.1); Sodium 136 mmol/L (137-145); Total Protein 6.7 g/dL (6.3-8.2)
[2023-03-14 13:38] LABS: Vitamin B12 752 pg/mL (239-931)
[2023-03-14 21:27] LABS: TSH w/ Reflex to FT4 0.76 uIU/mL (0.47-4.68)
== END ==
PROVIDERS: PCP Registered Nurse Diabetes Educator; Referring Provider Physician Assistant; Visit Provider Physician Assistant
DX: R25.1 Tremor, unspecified (principal)
CPT/HCPCS: 36415; 80053; 82607; 84443; 85025

== ENCOUNTER → 2023-05-15 14:53 | Outpatient (CLI) | payer MEDICARE, OTHER, SELFPAY ==
--- NOTE | 2023-05-15 | DI.MG.S_ITS ---
BILATERAL DIGITAL SCREENING MAMMOGRAM 3D/2D WITH CAD: 05/15/2023 CLINICAL: Routine screening. Family history breast cancer. Comparison is made to exams dated: 04/11/2022 mammogram, 12/07/2021 mammogram, and 11/12/2020 mammogram - [facility]. Both breasts are heterogeneously dense, which may obscure small masses (category c / 51-75% glandular tissue). Current study was also evaluated with a Computer Aided Detection (CAD) system. No significant masses, calcifications, or other findings are seen in either breast. There has been no significant interval change. IMPRESSION: NEGATIVE There is no mammographic evidence of malignancy. A 1 year screening mammogram is recommended. Based on the Tyrer Cuzick model (a risk assessment model) the patient's lifetime risk is 15.5% and her 10 year risk is 8.3%. According to the ACR, ACS, and NCCN guidelines, an annual breast MRI exam along with mammogram is recommended if the patient's lifetime risk is 20% or greater. This exam was interpreted at Station ID: [id number]. NOTE: For mammograms, a report in lay terms will be sent to the patient. Approximately 15% of breast malignancies will not be visualized mammographically. In the management of a palpable breast mass, a negative mammogram must not discourage biopsy of a clinically suspicious lesion. Electronically Signed By: Deborah villagran/blu:05/15/2023 16:51:23 letter sent: Normal Exam ACR BI-RADS Category 1: Negative [id number]
== END ==
LOC: MAMMO 14:54
PROVIDERS: PCP Registered Nurse Diabetes Educator; Referring Provider Registered Nurse Diabetes Educator; Visit Provider Registered Nurse Diabetes Educator
DX: Z12.31 Encounter for screening mammogram for malignant neoplasm of breast (principal); Z80.3 Family history of malignant neoplasm of breast; R92.333 Mammographic heterogeneous density, bilateral breasts
CPT/HCPCS: 77063; 77067

== ENCOUNTER → 2023-07-20 11:25 | Outpatient (CLI) | payer MEDICARE, OTHER, SELFPAY | PROVIDERS: PCP Registered Nurse Diabetes Educator; Referring Provider Podiatrist; Visit Provider Podiatrist | DX: Z01.818 Encounter for other preprocedural examination (principal) | CPT/HCPCS: 93005 ==

== ENCOUNTER → 2023-08-01 15:09 | Outpatient (CLI) | payer MEDICARE, OTHER, SELFPAY ==
--- NOTE | 2023-08-01 15:10 | DI.RAD.S_ITS ---
PROCEDURE: XR HAND LT MIN 3V INDICATIONS: Pain at base of her thumb; suspect OA TECHNIQUE: 3 views of the hand(s) acquired. COMPARISON: None. FINDINGS: Bones: No fractures or dislocations. Carpal bones are normally aligned. No suspicious bony lesions. Very appearance joint space 1st CMC joint. No periarticular osteophytes erosions or sclerosis. Soft tissues: No suspicious soft tissue calcifications. IMPRESSION: Slight appearance of arthritic change at the 1st CMC joint Dictated by: Jade Guillen M.D. on 08/01/2023 at 21:15 Approved by: Jade Guillen M.D. on 08/01/2023 at 21:16
== END ==
PROVIDERS: PCP Registered Nurse Diabetes Educator; Referring Provider Physician Assistant; Visit Provider Physician Assistant
DX: M79.645 Pain in left finger(s) (principal)
CPT/HCPCS: 73130

== ENCOUNTER → 2023-08-09 11:53 | Outpatient (CLI) | payer MEDICARE, OTHER, SELFPAY ==
[2023-08-09 12:42] LABS: Influenza A - CEPHEID Flu A NEGATIVE (NEGATIVE); Influenza B - CEPHEID Flu B NEGATIVE (NEGATIVE); Respiratory Syncytial Virus Negative (Negative)
[2023-08-09 13:06] LABS: COVID-19 CEPHEID 4-PLEX PCR Negative (Negative)
== END ==
PROVIDERS: PCP Registered Nurse Diabetes Educator; Visit Provider Nurse Practitioner Family
DX: R05.1 Acute cough (principal)
CPT/HCPCS: 0241U

== ENCOUNTER 2023-08-11 15:20 | Emergency (ER) | payer MEDICARE, OTHER, SELFPAY ==
[2023-08-11 15:26] VITALS: BP 132/72; PULSE 74; RESP 16; TEMP 36.5; O2SAT 99; BMI 21.9
--- NOTE | 2023-08-11 15:45 | ED_ITS ---
HPI - Recheck/Abnormal Lab/Rx <Gordon Guo PA-C - Last Filed: 08/11/23 16:07> General Chief Complaint: Recheck/Abnormal Lab/Rx Stated Complaint: medication issues Time Seen by Provider: 08/11/23 15:38 Source: patient Mode of arrival: Ambulatory History of Present Illness HPI narrative: This is a 67-year-old female presents to the emergency department due to solely a medication refill. Patient states that her primary care provider increased her Strattera dosing to 80 mg daily but she was run out of medication. She was asking for refill until she was able to follow up with the primary care provider early next week. She takes it for ADD routinely without issues. She denies any SI, HI, auditory or visual hallucinations, or any other concerning signs or symptoms. Related Data Home Medications Medication Instructions Recorded Confirmed atorvastatin 20 mg tablet 20 mg PO BEDTIME 03/24/20 08/02/23 diltiazem HCl 180 mg 180 mg PO DAILY 06/21/22 08/02/23 capsule,extended release 24 hr atomoxetine 60 mg capsule 60 mg PO QAM 08/09/23 08/09/23 atomoxetine 80 mg capsule 80 mg PO QAM 08/09/23 08/09/23 linaclotide 145 mcg capsule 145 mcg PO DAILY 08/09/23 08/09/23 (Linzess) paroxetine HCl 10 mg tablet 10 mg PO DAILY 08/09/23 08/09/23 sodium,potassium,mag sulfates 17.5 PO 08/09/23 08/09/23 gram-3.13 gram-1.6 gram oral soln Previous Rx's Medication Instructions Recorded atomoxetine 40 mg capsule 40 mg PO DAILY #90 caps 04/24/23 (Strattera) estradiol 0.01% (0.1 mg/gram) See Rx Instructions .Route 04/24/23 vaginal cream .COMPLEX #42.5 grams paroxetine HCl 20 mg tablet 20 mg PO DAILY #90 tabs 04/24/23 propranolol 40 mg tablet 40 mg PO BID #180 tabs 04/24/23 valacyclovir 1 gram tablet 1,000 mg PO DAILY #90 tabs 04/24/23 (Valtrex) atomoxetine 80 mg capsule 80 mg PO QAM #5 caps 08/11/23 Allergies Allergy/AdvReac Type Severity Reaction Status Date / Time codeine [CODEINE] AdvReac Intermediate NAUSEA Verified 08/11/23 15:26 Review of Systems <Gordon Guo PA-C - Last Filed: 08/11/23 16:07> Review of Systems Narrative: GENERAL: Denies chills, fatigue, malaise, fever, sweats. HEENT: Denies sinus pain, ear pain, sore throat, difficulty swallowing, dizziness. RESPIRATORY: Denies dyspnea, cough, wheezing, hemoptysis, sputum. CARDIOVASCULAR: Denies chest pain, palpitations, orthopnea, edema, GASTROINTESTINAL: Denies nausea, vomiting, abdominal pain, diarrhea, constipation, melena. : Denies dysuria, frequency, incontinence, hematuria, urinary retention. MUSCULOSKELETAL: denies weakness, joint pain, or bony pain SKIN: Denies rash, skin lesions, or other NEUROLOGIC: Denies weakness, headache, numbness, change in speech, confusion, seizures, incoordination. PSYCHIATRIC: No concerning psychosocial issues. 12 point review of systems is negative except for those stated above Patient History <Gordon Guo PA-C - Last Filed: 08/11/23 16:07> Medical History (Updated 08/11/23 @ 16:06 by Gordon Guo PA-C) Osteopenia of multiple sites SVT (supraventricular tachycardia) Dyslipidemia HSV-2 (herpes simplex virus 2) infection Hypertriglyceridemia (2019) Headache Irritable bowel syndrome Tinea corporis Dysuria Vitamin B12 deficiency (2009) Atypical chest pain Vision disorder Seasonal allergies (~2012) ADHD (~2006) Shoulder pain (~2013) Scoliosis (~1965) Back pain Ankle pain Mumps Chicken pox (~1960) Recurrent sinusitis (~2012) GERD (gastroesophageal reflux disease) (~2007) Cardiac arrhythmia Skin cancer, basal cell (~2013) Surgical History Anesthesia Fracture (~02/2004) Status post hysterectomy (~05/2000) History of spinal fusion (~07/1980) Family History Father Heart disease Mother Heart disease Social History marital status: household members: spouse Smoking Status: Never smoker alcohol intake: current substance use type: does not use Smoking Status: Never smoker alcohol intake frequency: 0-2 drinks per day Substance Use Type: does not use and marijuana Exam <PONCE Chu Last Filed: 08/11/23 16:07> Narrative Exam Narrative: GENERAL: Well-developed patient, in mild distress. HEAD: Atraumatic. Normocephalic. EYES: Pupils equal round and reactive. Extraocular motions intact. No scleral icterus. No injection or drainage. ENT: Nose without bleeding, purulent drainage. Throat without erythema, tonsillar hypertrophy or exudate. Airway patent. NECK: Trachea midline. Non tender EXTREMITIES: No edema or joint tenderness. NEURO: AOx3. SKIN: No rash or erythema of visible areas Initial Vital Signs Initial Vital Signs: Vital Signs Temperature 97.7 F 08/11/23 15:26 Pulse Rate 74 08/11/23 15:26 Respiratory Rate 16 08/11/23 15:26 Blood Pressure 132/72 08/11/23 15:26 Pulse Oximetry 99 08/11/23 15:26 Oxygen Delivery Method Room Air 08/11/23 15:26 <Mary Larose DO - Last Filed: 08/12/23 07:13> Initial Vital Signs Initial Vital Signs: Vital Signs Temperature 97.7 F 08/11/23 15:26 Pulse Rate 74 08/11/23 15:26 Respiratory Rate 16 08/11/23 15:26 Blood Pressure 132/72 08/11/23 15:26 Pulse Oximetry 99 08/11/23 15:26 Oxygen Delivery Method Room Air 08/11/23 15:26 Course <PONCE Chu Last Filed: 08/11/23 16:07> Vital Signs Vital signs: Vital Signs - 8 hr 08/11/23 15:26 Temperature 97.7 F Pulse Rate 74 Respiratory Rate 16 Blood Pressure 132/72 Pulse Oximetry 99 Oxygen Delivery Method Room Air <DO Jae Garcia Last Filed: 08/12/23 07:13> Vital Signs Vital signs: Vital Signs - 8 hr 08/11/23 15:26 Temperature 97.7 F Pulse Rate 74 Respiratory Rate 16 Blood Pressure 132/72 Pulse Oximetry 99 Oxygen Delivery Method Room Air MDM - Recheck/Abnormal Lab/Rx <PONCE Chu Last Filed: 08/11/23 16:07> MDM Narrative Medical decision making narrative: ED course: This is a 67-year-old female presents to the emergency department for solely a medical education refill of her Strattera which she takes 81 mg daily. She will follow up with the primary care provider early next week. A very short amount of medications will be prescribed until she was able to follow up with the primary care provider. No symptoms and patient has ADD as well controlled on the Strattera. CC: Medication refill Complicating co-morbidities: History of ADD Data collected from: Previous notes Medical records reviewed: Patient was seen 4 years ago due to chest pain. Known SVT history. History of hysterectomy. Has a curtain hemmer automatic. History of ADD, patient was eventually discharged. Differential considered, but not limited to: SI, HI, ADD, medication refill Exam documented above, pertinent findings include: No abnormalities Lab Test results independently reviewed as above. Pertinent findings: None obtained Imaging studies independently reviewed: None obtained Scores Used: None MIPS Elements: None Consultations: None Treatments: None Re-evaluations: None Discussion: Discussed plan with the patient was comfortable with the plan Diagnosis: Medication refill Disposition: see below, along with detailed discharge instructions that have been reviewed with patient as well as indications for ED re-evaluation and add itional outpatient follow up Discharge Plan Departure Patient Disposition: Home Clinical Impression: Medication refill Activity Restrictions/Additional Instructions: Thank you for coming to the [facility] Emergency Department today. I have sent a short refill of the medication to your pharmacy. Please follow up with the primary care provider early next week for routine refills. I have sent the medication to [facility] in [place]. Please return to the emergency department if you develop any suicidal ideations, homicidal ideations, auditory or visual hallucinations, or any other concerning signs or symptoms. I hope you feel better soon. Please follow up with your primary care provider within a week if your symptoms continue. If you do not have a primary care provider please contact the [facility] Resource line at [phone]. They will ask some questions about your medical history and help you get set up with a provider in the community. Prescriptions: New atomoxetine 80 mg capsule 80 mg PO QAM Qty: 5 0RF No Action Linzess 145 mcg capsule 145 mcg PO DAILY sodium,potassium,mag sulfates 17.5-3.13-1.6 gram recon soln PO atomoxetine 80 mg capsule 80 mg PO QAM paroxetine HCl 10 mg tablet 10 mg PO DAILY atomoxetine 60 mg capsule 60 mg PO QAM atorvastatin 20 mg tablet 20 mg PO BEDTIME diltiazem HCl 180 mg capsule,extended release 24hr 180 mg PO DAILY propranolol 40 mg tablet 40 mg PO BID Qty: 180 3RF estradiol 0.01 % (0.1 mg/gram) cream See Rx Instructions .ROUTE .COMPLEX Qty: 42.5 5RF Dose Instruction: insert 1 gram vaginally two times a week Rx Instructions: insert 1 gram vaginally two times a week valacyclovir [Valtrex] 1 gram tablet 1,000 mg PO DAILY Qty: 90 3RF paroxetine HCl 20 mg tablet 20 mg PO DAILY Qty: 90 3RF atomoxetine [Strattera] 40 mg capsule 40 mg PO DAILY Qty: 90 3RF Referrals: Edis Rea ARNP [Primary Care Provider] - Stand Alone Forms: Patient Portal/API ED Sign-out <Mary Larose DO - Last Filed: 08/12/23 07:13> Cosign ED Attending Cosignature Attestation: I was available for consultation.
== END 2023-08-11 16:21 | disposition home or self-care (01) ==
PROVIDERS: Emergency Provider Physician Assistant Medical; PCP Registered Nurse Diabetes Educator
DX: Z76.0 Encounter for issue of repeat prescription (principal)
CPT/HCPCS: 99281

== ENCOUNTER → 2023-10-23 13:05 | Outpatient (CLI) | payer MEDICARE, OTHER, SELFPAY ==
[2023-10-23 13:46] LABS: Add Manual Diff / Slide Review NO; Basophils Absolute Auto 0 /uL (0-100); Basophils Percent Auto 0.6 % (0-2); Eosinophils Absolute Auto 100 /uL (0-450); Eosinophils Percent Auto 1.6 % (2-4); Hematocrit 40.4 % (36-46); Hemoglobin 13.6 g/dL (12.0-16.0); Lymphocytes Absolute Auto 1800 /uL (1100-4500); Lymphocytes Percent Auto 30.3 % (25-40); Mean Corpuscular HGB Conc 33.8 % (30-36); Mean Corpuscular Hemoglobin 32.9 PG (26-34); Mean Corpuscular Volume 97.3 fL (80-100); Monocytes Absolute Auto 500 /uL (0-900); Monocytes Percent Auto 7.7 % (3-14); Neutrophils Absolute Auto 3500 /uL (1500-7000); Neutrophils Percent Auto 59.8 % (50-75); Platelet Count 238 X10^3/uL (150-400); Red Blood Cell Count 4.15 X10^6/uL (4.0-5.2); Red Cell Distribution Width 12.7 % (11.6-14.8); White Blood Cell Count 5.9 X10^3/uL (4.5-11.0)
[2023-10-23 14:04] LABS: Alanine Aminotransferase 21 IU/L (<35); Albumin 4.2 g/dL (3.5-5.0); Alkaline Phosphatase 82 U/L (38-126); Aspartate Aminotransferase 21 IU/L (14-36); Blood Urea Nitrogen 13 mg/dL (7-17); Calcium 9.4 mg/dL (8.4-10.2); Carbon Dioxide 28 mmol/L (22-32); Chloride 101 mmol/L (98-107); Creatine Kinase 39 U/L (30-135); Estimated Glomerular Filt Rate > 60 mL/min (>60); Globulin 2.1 g/dL (1.7-4.1); Glucose 89 mg/dL (80-110); HEMOLYSIS < 15 (0-50); Potassium 4.1 mmol/L (3.4-5.1); Sodium 136 mmol/L (137-145); Total Protein 6.3 g/dL (6.3-8.2)
[2023-10-23 14:53] LABS: TSH w/ Reflex to FT4 0.73 uIU/mL (0.47-4.68)
[2023-10-23 16:12] LABS: Hep C Virus Ab w/Reflex Quant NEGATIVE s/c (NEGATIVE)
== END ==
PROVIDERS: PCP Registered Nurse Diabetes Educator; Referring Provider Physician Assistant; Visit Provider Physician Assistant
DX: R61 Generalized hyperhidrosis (principal)
CPT/HCPCS: 36415; 80053; 82550; 84443; 85025; 86803

== ENCOUNTER → 2023-11-25 16:20 | Outpatient (CLI) | payer MEDICARE, OTHER, SELFPAY ==
--- NOTE | 2023-11-25 16:22 | DI.RAD.S_ITS ---
PROCEDURE: XR FOOT LT MIN 3V INDICATIONS: Left foot pain TECHNIQUE: 3 views of the foot were acquired. COMPARISON: None. FINDINGS: Bones: No fractures or dislocations. No suspicious bony lesions. Retrocalcaneal enthesophyte. Soft tissues: No tibiotalar joint effusion. Achilles tendon appears normal. IMPRESSION: No acute osseous abnormality. Approved by: Blanca Herndon M.D.,Ph.D. on 11/26/2023 at 22:39
== END ==
PROVIDERS: PCP Registered Nurse Diabetes Educator; Referring Provider Nurse Practitioner Family; Visit Provider Nurse Practitioner Family
DX: M77.32 Calcaneal spur, left foot (principal); M79.672 Pain in left foot
CPT/HCPCS: 73630

== ENCOUNTER → 2023-12-21 13:36 | Outpatient (CLI) | payer MEDICARE, OTHER, SELFPAY ==
--- NOTE | 2023-12-21 13:37 | DI.US.S_ITS ---
PROCEDURE: US PELVIC COMPLETE INDICATIONS: eval R pelvic pain TECHNIQUE: Real-time scanning was performed of the pelvic organs, with image documentation. Additional endovaginal scanning was necessary due to incomplete visualization of the adnexal and endometrial structures by transabdominal scanning. COMPARISON: None. FINDINGS: Status post total hysterectomy and bilateral oophorectomy. No free intraperitoneal fluid. No soft tissue mass is seen in the pelvis. IMPRESSION: 1. Status post hysterectomy and bilateral oophorectomy. No definite soft tissue mass in the pelvis. Further evaluation with CT pelvis with intravenous contrast can be considered if clinically indicated. We strive to produce accurate, complete, and clear reports of imaging services. To assist us in improving patient care, this report was composed using standard report templates and voice recognition software. Therefore, it may contain abnormal punctuation, insertions and/or omissions. Occasional wrong-word or sound-alike substitutions may occur. Though we review the report and make efforts to correct it, we do recommend that the report be read carefully in proper context to recognize any text inaccuracies. Dictated by: Bethany Hodge M.D. on 12/21/2023 at 16:29 Approved by: Bethany Hodge M.D. on 12/21/2023 at 16:32
== END ==
PROVIDERS: PCP Registered Nurse Diabetes Educator; Referring Provider Registered Nurse Diabetes Educator; Visit Provider Registered Nurse Diabetes Educator
DX: R10.2 Pelvic and perineal pain (principal); Z90.710 Acquired absence of both cervix and uterus; Z90.722 Acquired absence of ovaries, bilateral
CPT/HCPCS: 76830; 76856

== ENCOUNTER → 2024-01-08 10:05 | Outpatient (CLI) | payer MEDICARE, OTHER, SELFPAY ==
--- NOTE | 2024-01-08 10:06 | DI.RAD.S_ITS ---
PROCEDURE: XR LUMBAR SPINE MIN 4V INDICATIONS: reeval lumbosacral spine TECHNIQUE: 5 views of the lumbar spine were acquired, including bilateral oblique views. COMPARISON: [facility], , XR LUMBAR SPINE 2-3V, 11/09/2020, 12:30. FINDINGS: Lumbar spine curvature and alignment: Mild leftward curve noted. Bones: Solid fusion change from T11 through L3 provided by interbody graft left-sided sudarshan and vertebral screws. Disc spaces: Moderate L3-4 degenerative disc disease noted. There is moderate L4-5 and L5-S1 degenerative facet disease. Soft tissues: No soft tissue swelling, calcification or mass. IMPRESSION: Moderate L3-4 degenerative disc disease. Moderate L4-5 and L5-S1 degenerative facet disease. No change Solid anterior fusion between T11 and L3 Dictated by: Chi Xie M.D. on 01/09/2024 at 10:12 Approved by: Chi Xie M.D. on 01/09/2024 at 10:15
[2024-01-08 12:01] LABS: Cholesterol 212 mg/dL (140-199); HDL Cholesterol 62 mg/dL (40-60); LDL Cholesterol Calculated 126 mg/dL (<100); Triglycerides 118 mg/dL (35-150)
[2024-01-08 12:33] LABS: Appearance Urine UA CLEAR; Bilirubin Urine UA NEGATIVE (NEGATIVE); Color Urine UA YELLOW; Glucose Urine UA NEGATIVE (Negative); Ketones Urine UA NEGATIVE (NEGATIVE); Leukocyte Esterase Urine UA NEGATIVE (NEGATIVE); Nitrite Urine UA NEGATIVE (Negative); Occult Blood Urine UA NEGATIVE (Negative); Protein Urine UA NEGATIVE (Negative); Specific Gravity Urine UA <=1.005 (1.000-1.035); Urobilinogen Urine UA 0.2 E.U./dL (0.2)
[2024-01-08 12:34] LABS: Free T4, Direct Thyroxine 1.07 ng/dL (0.78-2.19)
[2024-01-08 12:40] LABS: Bacteria Urine None Seen; RBC Urine None Seen (0-5/HPF); Squamous Epithelial Cell Urine None Seen (0-5/HPF); Urine Volume 10mL (spun); WBC Urine None Seen (0-5/HPF)
[2024-01-08 12:41] LABS: Culture Indicated Urine Cult Not Indicated
== END ==
PROVIDERS: PCP Registered Nurse Diabetes Educator; Referring Provider Registered Nurse Diabetes Educator; Visit Provider Registered Nurse Diabetes Educator
DX: M47.27 Other spondylosis with radiculopathy, lumbosacral region (principal); M47.26 Other spondylosis with radiculopathy, lumbar region; M51.16 Intervertebral disc disorders with radiculopathy, lumbar region; E78.5 Hyperlipidemia, unspecified; R20.2 Paresthesia of skin; Z00.00 Encounter for general adult medical examination without abnormal findings; R23.2 Flushing; Z98.890 Other specified postprocedural states; Z98.1 Arthrodesis status
CPT/HCPCS: 36415; 72110; 80061; 81001; 83520; 84439; 86900; 86901

== ENCOUNTER → 2024-01-10 15:53 | Outpatient (CLI) | payer MEDICARE, OTHER, SELFPAY ==
--- NOTE | 2024-01-10 15:54 | DI.MRI.S_ITS ---
PROCEDURE: MR LUMBAR SPINE WO CON INDICATIONS: reeval lumbosacral spine TECHNIQUE: Noncontrast sagittal T1 spin echo and T2 fast echo, sagittal STIR, and T2 fast spin echo through the lumbar spine. In cases with scoliosis, additional coronal T2 fast spin echo may be performed. COMPARISON: [facility], CR, XR LUMBAR SPINE MIN 4V, 01/08/2024, 10:12. FINDINGS: Image quality: Excellent. Alignment and Curvature: There is normal bony alignment. Bone Marrow: Lateral fixation spanning T11 through L3. Marrow is of normal overall signal. No acute vertebral body compression fractures. Spinal Cord: Conus medullaris terminates at the L1-L2 level. Visualized cord demonstrates normal signal and size. Paraspinous Soft Tissues: No paravertebral masses. T12-L1: Postoperative changes. No central canal or neural foraminal stenosis. L1-L2: Postoperative changes. No central canal or neural foraminal stenosis. L2-L3: Postoperative changes. No central canal or neural foraminal stenosis. L3-L4: Disc desiccation and moderate disc height loss. Mild diffuse disc bulge. No central canal stenosis. No significant neural foraminal stenosis. L4-L5: Disc desiccation and mild height loss. Minimal disc bulge. Mild facet arthropathy. No central canal or neural foraminal stenosis. L5-S1: Disc desiccation. Facet arthropathy. No central canal or neural foraminal stenosis. IMPRESSION: 1. Postsurgical changes from lateral fixation spanning T11 through L3. 2. Degenerative changes of the lumbar spine are present as above. No central canal or neural foraminal stenosis. Dictated by: Rex Figueroa M.D. on 01/10/2024 at 21:36 Approved by: Rex Figueroa M.D. on 01/10/2024 at 21:40
== END ==
PROVIDERS: PCP Registered Nurse Diabetes Educator; Referring Provider Registered Nurse Diabetes Educator; Visit Provider Registered Nurse Diabetes Educator
DX: M47.27 Other spondylosis with radiculopathy, lumbosacral region (principal); M47.26 Other spondylosis with radiculopathy, lumbar region; R20.2 Paresthesia of skin; Z98.890 Other specified postprocedural states
CPT/HCPCS: 72148

== ENCOUNTER → 2024-01-14 13:31 | Outpatient (CLI) | payer MEDICARE, OTHER, SELFPAY | PROVIDERS: PCP Registered Nurse Diabetes Educator; Referring Provider Registered Nurse Diabetes Educator; Visit Provider Registered Nurse Diabetes Educator | DX: R23.2 Flushing (principal) | CPT/HCPCS: 82384; 83497; 83835 ==

== ENCOUNTER → 2024-02-10 12:30 | Outpatient (CLI) | payer MEDICARE, OTHER, SELFPAY ==
--- NOTE | 2024-02-10 12:31 | DI.RAD.S_ITS ---
PROCEDURE: XR WRIST LT MIN 3V INDICATIONS: Left wrist pain TECHNIQUE: 3 views of the wrist were acquired. COMPARISON: None. FINDINGS: Bones: No fractures or dislocations. No suspicious bony lesions. Soft tissues: No suspicious soft tissue calcifications. IMPRESSION: No acute bony abnormality. Approved by: Cain Jolley M.D. on 02/10/2024 at 11:56
== END ==
PROVIDERS: PCP Registered Nurse Diabetes Educator; Referring Provider Nurse Practitioner Family; Visit Provider Nurse Practitioner Family
DX: M25.532 Pain in left wrist (principal)
CPT/HCPCS: 73110

== ENCOUNTER → 2024-02-19 10:42 | Outpatient (CLI) | payer MEDICARE, OTHER, SELFPAY ==
[2024-02-19 12:12] LABS: Add Manual Diff / Slide Review NO; Basophils Absolute Auto 0 /uL (0-100); Basophils Percent Auto 0.3 % (0-2); Eosinophils Absolute Auto 100 /uL (0-450); Eosinophils Percent Auto 1.2 % (2-4); Hematocrit 40.4 % (36-46); Hemoglobin 13.6 g/dL (12.0-16.0); Lymphocytes Absolute Auto 2100 /uL (1100-4500); Mean Corpuscular HGB Conc 33.7 % (30-36); Mean Corpuscular Hemoglobin 32.5 PG (26-34); Mean Corpuscular Volume 96.5 fL (80-100); Monocytes Absolute Auto 400 /uL (0-900); Monocytes Percent Auto 5.8 % (3-14); Neutrophils Absolute Auto 4100 /uL (1500-7000); Neutrophils Percent Auto 61.7 % (50-75); Platelet Count 189 X10^3/uL (150-400); Red Blood Cell Count 4.18 X10^6/uL (4.0-5.2); White Blood Cell Count 6.7 X10^3/uL (4.5-11.0)
[2024-02-19 12:52] LABS: C-Reactive Protein Quant < 0.5 mg/dL (<1.0)
[2024-02-19 13:09] LABS: Erythrocyte Sedimentation Rate 3 MM/HR (0-20)
== END ==
PROVIDERS: PCP Registered Nurse Diabetes Educator; Referring Provider Registered Nurse Diabetes Educator; Visit Provider Registered Nurse Diabetes Educator
DX: L53.9 Erythematous condition, unspecified (principal); M25.532 Pain in left wrist
CPT/HCPCS: 36415; 85025; 85651; 86140

== ENCOUNTER → 2024-02-19 15:08 | Outpatient (CLI) | payer MEDICARE, OTHER, SELFPAY ==
--- NOTE | 2024-02-19 15:09 | DI.MRI.S_ITS ---
PROCEDURE: MR WRIST LT WO/W CON INDICATIONS: eval Left wrist pain/erythema, R/O osteomyelitis/other TECHNIQUE: Noncontrast coronal proton density fast spin echo and T2 fast spin echo with fat saturation; coronal 3-D gradient echo, axial T1 spin echo and T2 fast spin echo with fat saturation, axial T1 spin echo with fat saturation, sagittal T1 spin echo through the wrist. Post-contrast axial, coronal, and sagittal T1 spin echo with fat saturation through the wrist. COMPARISON: [facility], CR, XR WRIST LT MIN 3V, 02/10/2024, 12:28. FINDINGS: Image quality: Excellent. Bones and cartilage: No suspicious osseous enhancement. The carpal bones are normally aligned. Jtxd-uq-[id number] wrist joint osteoarthritic changes are seen with joint space narrowing, subchondral sclerosis and mild edema most notably involving triscaphe joint and 1st CMC joint. No evidence of avascular necrosis. Subcortical cystic changes are noted involving trapezium with diffuse marrow edema. No discrete fracture line. Mild contrast enhancement in this area is noted. No other area of abnormal intraosseous enhancement. Carpal ligaments: The scapholunate and lunotriquetral ligaments appear intact. In the absence of intra-articular contrast, the extrinsic carpal ligaments are not well identified. On sagittal images, the pisohamate ligament appears intact. Triangular fibrocartilage complex: There is subtle signal abnormality involving triangular fibrocartilage in its central portion concerning for subtle TFC tear. The adjacent meniscal homolog appears normal in the absence of intra-articular contrast. The extensor carpi ulnaris tendon is normal in location and morphology. Tendons and soft tissues: No suspicious soft tissue enhancement. The carpal tunnel structures appear normal, including the median nerve. The ulnar nerve appears normal within Guyon's canal. Moderately thickening of the 1st extensor compartment at the level of radial styloid extending to the level of 1st metacarpal base. Rest of the extensor tendons are intact. No abnormal fluid distension of tendon sheath. No soft tissue ganglion cysts. IMPRESSION: 1. Agte-wb-xugijfia tricompartmental osteoarthritis throughout wrist joints most notably involving 1st CMC joint and triscaphe joint. Marrow edema is noted throughout trapezium with subcortical cystic changes and contrast enhancement. No definite fracture line is seen. Finding could represent erosion involving trapezium secondary to inflammatory arthropathy versus contusion versus changes secondary to osteoarthritis. No other area of abnormal contrast enhancement is noted. No evidence of avascular necrosis. 2. Scapholunate and lunotriquetral ligaments are intact. 3. Suggestion of subtle TFC tear near its central portion. 4. Bgjd-pp-hnbjodmp tendinosis involving 1st extensor compartment along radial aspect of radial styloid and carpal bones to the level of 1st metacarpal base. Rest of the extensor and flexor tendons are intact. No enhancing soft tissue mass or drainable fluid collection. Dictated by: Diony Decker M.D. on 02/19/2024 at 21:47 Approved by: Diony Decker M.D. on 02/19/2024 at 21:52
== END ==
PROVIDERS: PCP Registered Nurse Diabetes Educator; Referring Provider Registered Nurse Diabetes Educator; Visit Provider Registered Nurse Diabetes Educator
DX: M18.12 Unilateral primary osteoarthritis of first carpometacarpal joint, left hand (principal); M19.032 Primary osteoarthritis, left wrist; M25.532 Pain in left wrist; L53.9 Erythematous condition, unspecified
CPT/HCPCS: 36415; 73223; 85025; 85651; 86140; A9579

== ENCOUNTER → 2024-05-16 14:13 | Outpatient (CLI) | payer MEDICARE, OTHER, SELFPAY ==
--- NOTE | 2024-05-16 14:13 | DI.RAD.S_ITS ---
PROCEDURE: XR DEXA AXIAL SKELETON INDICATIONS: reeval COMPARISON: [facility], , XR DEXA AXIAL SKELETON, 06/29/2022, 12:24. FINDINGS: Left Femoral Neck: Bone mineral density 0.608 g/cm2, T score -2.2. Left Hip: Bone mineral density 0.770 g/cm2, T score -1.4, no statistically significant change. Left Forearm: Bone mineral density 0.558 g/cm2, T score -2.3, no statistically significant change. Fracture Risk Calculation (when applicable): 10-year fracture risk of a major osteoporotic fracture 12 percent and of a hip fracture 2.4 percent. (T score greater or equal to -1.0 to: NORMAL) (T score from -1.1 to -2.4: OSTEOPENIA) (T score less than or equal to -2.5: OSTEOPOROSIS) IMPRESSION: Low bone mineral density (osteopenia) by WHO classification. Follow-up guidelines as follows: Osteoporosis: Consider a repeat DEXA and Vertebral Fracture Assessment (VFA) exam in 2 years or sooner if medically necessary, to reassess this patient's status. Osteopenia: Consider a repeat DEXA in 2-3 years to reassess this patient's status, or if there is a new clinical indication. Normal: Consider a repeat DEXA in 5 years or sooner, or if there is a new clinical indication. All treatment decisions require clinical judgment and consideration of individual patient factors, including patient preferences, comorbidities, previous drug use, risk factors not captured in the FRAX model (e.g., frailty, falls, vitamin D deficiency, increased bone turnover, interval significant decline in bone density ) and possible under- or over-estimation of fracture risk by FRAX. In addition, the NOF Guide recommends that FDA-approved medical therapies be considered in postmenopausal women and men age >= 50 years with a: * Hip or vertebral (clinical or morphometric) fracture * T-score of <=-2.5 at the spine or hip * Ten-year fracture probability by FRAX of >= 3% for hip fracture or >=20% for major osteoporotic fracture. Dictated by: Rex Figueroa M.D. on 05/16/2024 at 16:20 Approved by: Rex Figueroa M.D. on 05/16/2024 at 16:20
--- NOTE | 2024-05-16 14:14 | DI.MG.S_ITS ---
BILATERAL DIGITAL SCREENING MAMMOGRAM 3D/2D WITH CAD: 05/16/2024 CLINICAL: Routine screening. Family history of breast cancer. Comparison is made to exams dated: 05/15/2023 mammogram, 12/07/2021 mammogram, and 11/12/2020 mammogram - [facility]. The breasts are heterogeneously dense, which may obscure small masses (category c / 51-75% glandular tissue). Current study was also evaluated with a Computer Aided Detection (CAD) system. No significant masses, calcifications, or other findings are seen in either breast. There has been no significant interval change. IMPRESSION: NEGATIVE There is no mammographic evidence of malignancy. A 1 year screening mammogram is recommended. Based on the Tyrer Cuzick model (a risk assessment model) the patient's lifetime risk is 14.8% and her 10 year risk is 8.3%. According to the ACR, ACS, and NCCN guidelines, an annual breast MRI exam along with mammogram is recommended if the patient's lifetime risk is 20% or greater. This exam was interpreted at Station ID: [id number]. NOTE: For mammograms, a report in lay terms will be sent to the patient. Approximately 15% of breast malignancies will not be visualized mammographically. In the management of a palpable breast mass, a negative mammogram must not discourage biopsy of a clinically suspicious lesion. Electronically Signed By: Nelda solis/blu:05/16/2024 17:05:42 letter sent: Normal Exam ACR BI-RADS Category 1: Negative
== END ==
LOC: RAD 14:13
PROVIDERS: PCP Registered Nurse Diabetes Educator; Referring Provider Registered Nurse Diabetes Educator; Visit Provider Registered Nurse Diabetes Educator
DX: M85.89 Other specified disorders of bone density and structure, multiple sites (principal); Z12.31 Encounter for screening mammogram for malignant neoplasm of breast; Z80.3 Family history of malignant neoplasm of breast; R92.333 Mammographic heterogeneous density, bilateral breasts
CPT/HCPCS: 77063; 77067; 77080; 77081

== ENCOUNTER → 2025-01-16 10:43 | Outpatient (CLI) | payer MEDICARE, OTHER, SELFPAY ==
[2025-01-16 11:23] LABS: Hematocrit 41.9 % (36-46); Hemoglobin 14.4 g/dL (12.0-16.0); Mean Corpuscular HGB Conc 34.3 % (30-36); Mean Corpuscular Hemoglobin 32.5 PG (26-34); Mean Corpuscular Volume 94.8 fL (80-100); Platelet Count 202 X10^3/uL (150-400)
[2025-01-16 11:57] LABS: Alanine Aminotransferase 24 IU/L (<35); Albumin 4.4 g/dL (3.5-5.0); Albumin Globulin Ratio 1.8 (1.0-2.8); Alkaline Phosphatase 70 U/L (38-126); Blood Urea Nitrogen 19 mg/dL (7-17); Calcium 9.9 mg/dL (8.4-10.2); Carbon Dioxide 22 mmol/L (22-32); Chloride 103 mmol/L (98-107); Cholesterol 173 mg/dL (140-199); Estimated Glomerular Filt Rate > 60 mL/min (>60); Globulin 2.4 g/dL (1.7-4.1); Glucose 94 mg/dL (70-99); HDL Cholesterol 60 mg/dL (40-60); HEMOLYSIS < 15 (0-50); Potassium 4.4 mmol/L (3.4-5.1); Sodium 133 mmol/L (137-145); Total Protein 6.8 g/dL (6.3-8.2); Triglycerides 151 mg/dL (35-150)
[2025-01-16 12:21] LABS: TSH w/ Reflex to FT4 1.28 uIU/mL (0.47-4.68)
== END ==
PROVIDERS: PCP Registered Nurse Diabetes Educator; Referring Provider Registered Nurse Diabetes Educator; Visit Provider Registered Nurse Diabetes Educator
DX: E78.5 Hyperlipidemia, unspecified (principal); I49.9 Cardiac arrhythmia, unspecified; E53.8 Deficiency of other specified B group vitamins; I47.10 Supraventricular tachycardia, unspecified
CPT/HCPCS: 36415; 80053; 80061; 84443; 85027